=== PATIENT | female | born 1980 | race Caucasian/White ===

== ENCOUNTER 2023-05-21 16:57 | Outpatient (CLI) | payer OTHER, SELFPAY ==
[2023-05-21 18:00] LABS: Anion Gap 5 mmol/L (8-16); Blood Urea Nitrogen 14 mg/dL (7-17); Calcium 9.6 mg/dL (8.4-10.2); Carbon Dioxide 29 mmol/L (22-30); Chloride 101 mmol/L (98-107); Estimated Glomerular Filt Rate > 60; Glucose 94 mg/dL (65-110); Potassium 3.7 mmol/L (3.4-5.0); Sodium 135 mmol/L (137-145)
== END 2023-05-21 16:58 | disposition home or self-care (01) ==
LOC: ANHLAB 16:58
PROVIDERS: PCP Physician Assistant; Visit Provider Anesthesiology
DX: E11.9 Type 2 diabetes mellitus without complications (principal); Z01.818 Encounter for other preprocedural examination
CPT/HCPCS: 36415; 80048

== ENCOUNTER 2023-05-23 12:56 | Outpatient (CLI) | payer OTHER, SELFPAY ==
--- NOTE | 2023-05-23 13:28 | ECG_ITS ---
Measurements Intervals Weld Rate: 86 P: 50 TX: 157 QRS: 33 QRSD: 89 T: 33 QT: 354 QTc: 425 Interpretive Statements SINUS RHYTHM MINIMAL Q WAVES- INFERIOR LEADS BORDERLINE ECG NO PREVIOUS ECG AVAILABLE FOR COMPARISON Electronically Signed On 05-23-2023 13:46:35 [employer] by Fabrizio Arias D.O.
== END 2023-05-23 12:57 | disposition home or self-care (01) ==
LOC: ANHCARD 12:58
PROVIDERS: PCP Physician Assistant; Visit Provider Anesthesiology
DX: R00.0 Tachycardia, unspecified (principal); R94.31 Abnormal electrocardiogram [ECG] [EKG]
CPT/HCPCS: 93005

== ENCOUNTER 2023-05-27 01:09 | Day surgery (SDC) | payer OTHER, SELFPAY ==
[2023-05-19 16:49] VITALS: BMI 51.9
--- NOTE | 2023-05-19 16:57 | PC.NURSE ---
Report to the Outpatient Waiting Room, entrance under the green pavilion located off [facility], at time ____0600___ on date [id number] . Planned Procedure Time: 729__. Time changes happen often and if your time is changed the preop area will call you the afternoon before. - You and your visitor will be asked to self-screen and do not enter if you have any COVID symptoms. - A mask is optional within the hospital at this time. Patients may have clear liquids (water, carbonated beverages, clear teas, apple juice) until 3 hours prior to surgery with a maximum of 20 ounces. - No food from midnight until time of surgery - Take the following medications with a SIP of water the morning of surgery: Metoprolol, Effexor DO NOT STOP ANY OF YOUR OTHER PRESCRIPTION MEDICATIONS PRIOR TO SURGERY ?EXCEPT THE FOLLOWING Medications to discontinue per physician ___(all additional medications to be held morning of except the above.) Please no make-up, nail pakistani, hairspray, perfume, deodorant, or body powder the day of surgery. No jewelry (including any body piercings) or valuables the day of surgery, leave them at home. Please take a shower or bath the night before, or the morning of, surgery with an antibacterial soap. Wear comfortable, loose fitting clothing. - Jewelry must be removed prior to entering the operating room. Rings and piercings that are not removed may be cut off. - The hospital will not accept responsibility for valuables. - Please leave all valuables, including medications, at home the day of surgery. If you are going home after surgery, a licensed test car driver must drive you home. - NO public transportation without another adult if you receive anesthesia. - We recommend that an adult stay with you for 24 hours following discharge. - We also recommend that you do not drive, make important decision, drink alcoholic beverages, or take any drugs that were not prescribed by your health care provider for at least 24 hours after your discharge time. Follow any additional instructions given to you from your surgeon. If you or anyone in your household have experienced Covid symptoms in the past week, please notify your surgeon or the nurse liaison at the phone number below for possible testing. Telephone instructions given to Patient (Radha)____and asked if any additional questions and then verbalized understanding. Patient advised to call surgeon office or pre surgery nurse liaison [phone] if any additional questions.
[2023-05-27] VITALS (10 sets, daily range): BP systolic 116–166; BP diastolic 69–98; PULSE 66–83; RESP 14–20; TEMP 36.6–36.7; O2SAT 92–100
[2023-05-27] MEDS: ACETAMINOPHEN 500 MG TABLET 1000 MG PO (06:08)
[2023-05-27 06:33] LABS: Glucose Point of Care 101 mg/dl (65-105)
[2023-05-27] MEDS: LACTATED RINGERS 1,000 ML 30 ML IV CONT ×2 (06:47→09:03)
[2023-05-27] MEDS: KETOROLAC 15 MG/ML VIAL (*BKC) IV PUSH (06:49)
--- NOTE | 2023-05-27 07:12 | WPDANESEPPF ---
Anes - Initial Pre Proc Eval Procedure: Operation Date: 05/27/23 07:30 Proposed Procedures p Hysteroscopy Dilation and Curettage, Nubia Endometrial Ablation - Miri Prasad MD s Laparoscopy Bilateral Salpingectomy, Left Salpingo Oophorectomy - Miri Prasad MD Date/Time: 05/27/23 07:12 Surgeon: Miri Prasad MD Pre Op Diagnosis: ovary mass, menorrhagia Patient Data Age: 43 Gender: F Height: 1.6 m Weight: 134.6 kg Last Vital Signs Temp 98.1 F 05/27/23 06:16 Pulse 75 05/27/23 06:16 Resp 16 05/27/23 06:16 BP 166/90 H 05/27/23 06:16 Pulse Ox 100 05/27/23 06:16 O2 Del Method Room Air 05/27/23 06:16 Allergies Allergy/AdvReac Type Severity Reaction Status Date / Time No Known Allergies Allergy Verified 05/27/23 06:04 Home Medications Medication Instructions Recorded Confirmed Type leflunomide 20 mg tablet 20 mg PO DAILY #30 tabs 04/25/23 05/19/23 Rx meloxicam 15 mg tablet 15 mg PO DAILY PRN for pain #90 04/25/23 05/19/23 Rx tabs metformin 500 mg tablet 500 mg PO DAILY 04/25/23 05/19/23 History metoprolol succinate 50 mg 50 mg PO DAILY 04/25/23 05/19/23 History tablet,extended release 24 hr omeprazole 40 mg capsule,delayed 40 mg PO DAILY 04/25/23 05/19/23 History release semaglutide 0.25 mg or 0.5 mg (2 1 mg subcut WEEKLY 04/25/23 05/19/23 History mg/3 mL) subcutaneous pen injector (Ozempic) venlafaxine 150 mg 150 mg PO DAILY 05/19/23 05/19/23 History capsule,extended release 24 hr cyclobenzaprine 5 mg tablet 5 mg PO TID PRN muscle spasm #90 05/26/23 Rx tabs Laboratory Tests 05/27/23 06:30 POC Capillary Glucose 101 mg/dl (65-105) Patient hx anesthesia problems: none Family hx anesthesia problems: none Results Review: All pre-operative results and documents have been reviewed as part of the pre-operative evaluation. [facility] Past Medical History Medical History Acute arthritis Anxiety Counseling on health promotion and disease prevention Diabetes Generalized osteoarthritis of multiple sites GERD (gastroesophageal reflux disease) Headache Hyperlipidemia IBS (irritable bowel syndrome) Seronegative rheumatoid arthritis of both hands Surgical History Surgical History H/O breast surgery Family History Family History Other Cerebrovascular accident Depression Diabetes mellitus Heart disease Hypertension Social History Social History Smoking status: Never smoker Second hand tobacco smoke exposure: Yes Alcohol intake: never Substance use: never Substance use type: does not use Do You Feel Safe in your Home?: Yes Lack of Transportation: No Lack of Food: Never True Current Housing: I Have Housing Concerned About Future Housing: No Difficulty Paying Gas/Electric Bills: No Difficulty Paying for Meds: No Currently Unemployed: No Education: Decline to Answer Difficulty w/ Childcare or Family Care: No Living arrangements: alone Spiritual care concerns: No Anes - Eval Final PreProcedure Day of Procedure 05/27/23 07:12 Patient weight: super morbidly obese Heart: regular rate and rhythm Lungs: clear to auscultation Airway: Mallampati scale class III Neurological: alert and oriented Last oral intake: >/= 8 hours ASA classification: IV Emergent: no Anesthetic plan: proceed Anesthesia type and monitoring: general ETT and standard monitoring Results Review: All pre-operative results and documents have been reviewed as part of the pre-operative evaluation. Informed Consent: The patient's anesthetic plan and its attendant risks and benefits were discussed with the patient/family/POA. Questions were solicited and answers provided to the satisfaction of the patient/family/POA.
--- NOTE | 2023-05-27 07:17 | WPDHPUPDATE1 ---
History and Physical Update Update Date/Time: 05/27/23 07:17 History and Physical has been reviewed, including an updated exam of the patient. There are NO changes in the patient's condition. Risks, benefits, and alternatives have been discussed and questions answered. Patient agrees to proceed with procedure.
[2023-05-27 09:08] LABS: Glucose Point of Care 131 mg/dl (65-105)
[2023-05-27] MEDS: fentaNYL CITRATE INJ (*CRX) 100 MCG/2 ML VIAL 25 MCG IV PUSH ×4 (09:25→09:34)
[2023-05-27] MEDS: ONDANSETRON INJ 4 MG/2 ML VIAL IV PUSH (10:11)
[2023-05-27] MEDS: oxyCODONE HCL (*CRX) 5 MG TAB IR PO (10:16)
[2023-05-27] MEDS: SCOPOLAMINE 1 MG PATCH 1 PATCH TRANSDERM (10:42)
[2023-05-27] MEDS: diphenhydrAMINE HCl INJ 50 MG/ML VIAL 12.5 MG IV PUSH (10:46)
--- NOTE | 2023-05-27 11:37 | P.OP_ITS ---
Procedure Note - Detailed Date of Procedure 05/27/23 Pre-op Diagnosis ovary mass, menorrhagia Post-op Diagnosis Same Procedure Performed Laparoscopic bilateral salpingectomy with left oophorectomy and endometrial ablation with hysteroscopy. Surgeon Miri Prasad MD Anesthesia General Indications Menorrhagia, female sterilization Findings 4 cm left ovarian mass with mucinous content, otherwise normal-appearing uterus and fallopian tubes and right ovary Description of Procedure Patient was taken the operating room. She has prepped draped in the dorsal lithotomy position after induction of general anesthesia. A 5 mm abdominal incision was made in left upper quadrant of the abdomen with scalpel. A 5 mm trocars inserted the intra-abdominal cavity under direct visualization of the scope. Pneumoperitoneum was achieved. A 5 mm periumbilical incision was made using a scalpel on the abdominal scan. A 5 mm trocar was inserted the intra- abdominal cavity under visualization of the scope. A 5 mm incision made left lower quadrant of the abdomen. A 5 mm trocar was inserted the intra-abdominal cavity and direct visualization of the scope. The bilateral fallopian tubes were removed. The paratubal tissue in the area of the uterus was grasped with the LigaSure cautery and transected after being cauterized. The paratubal tissue from the ovary to the uterine cornu was cauterized and transected with LigaSure cautery. This was all done in a bilateral fashion. The tube was transected at the area of the uterine cornua and the tubes was removed through the 5 mm trocar site. the left ovary with mass was removed. The infundibulopelvic ligament was cauterized transected with LigaSure cautery. The paraovarian tissue of the mesosalpinx was cauterized transected around the ovary in a stepwise fashion. The ovary was placed in an endobag and taken out the left lower quadrant trocar site it contained mucinous content. The pelvis was irrigated there. SurgiSeal was placed on the area of the left adnexa around the infundibulopelvic The pneumoperitoneum was reduced. The trocars were removed. The skin was closed with subcuticular 4 Monocryl and covered with Dermabond. Our attention was then turned to the endometrial ablation portion of the procedure. A speculum was placed in the vagina. The cervix was grasped with a tenaculum. The cervix was dilated to approximately 8 mm with Messina dilators. The hysteroscope was inserted. And the below findings were noted. All of the intrauterine surfaces were curettaged with a medium-size curette and the specimens were collected. Measurements of the cervix were taken using the uterine sound and the hysteroscope. The intrauterine cavity measurements were entered into the handpiece. The device was inserted into the intrauterine cavity and the array was expanded. The balloon cuff was inflated. When an adequate seal was formed the safety and energy cycles were initiated and completed. The array was collapsed, the balloon was deflated. The insert was withdrawn. The hysteroscope was reinserted and a well desiccated intrauterine cavity was observed. The patient was taken recovery room stable condition. Sponge lap and needle counts were correct x2. She tolerated the procedure well. Pathology Yes Complications No immediate complications Condition Stable Disposition PACU
== END 2023-05-27 11:55 | disposition home or self-care (01) ==
PROVIDERS: PCP Family Medicine Sports Medicine; Visit Provider Obstetrics & Gynecology
PROC: 0U5B8ZZ Destruction of Endometrium, Via Natural or Artificial Opening Endoscopic (ICD-10-PCS; CPT 58563; principal; 2023-05-27 07:30)
PROC: (CPT 49320; 2023-05-27 07:30)
DX: N92.0 Excessive and frequent menstruation with regular cycle (principal); Z30.2 Encounter for sterilization; D27.1 Benign neoplasm of left ovary; N83.12 Corpus luteum cyst of left ovary; N87.9 Dysplasia of cervix uteri, unspecified; E11.9 Type 2 diabetes mellitus without complications; E78.5 Hyperlipidemia, unspecified; K21.9 Gastro-esophageal reflux disease without esophagitis; F41.9 Anxiety disorder, unspecified; M06.042 Rheumatoid arthritis without rheumatoid factor, left hand; M06.041 Rheumatoid arthritis without rheumatoid factor, right hand; Z79.84 Long term (current) use of oral hypoglycemic drugs; Z79.85 Long-term (current) use of injectable non-insulin antidiabetic drugs; E66.01 Morbid (severe) obesity due to excess calories; Z68.43 Body mass index [BMI] 50.0-59.9, adult
CPT/HCPCS: 58563; 58661; 36415; 80048; 82948; 88305; A9270; J0330; J1200; J1885; J2250; J2405; J2704; J3010; J7030; J7120

== ENCOUNTER 2023-06-20 12:30 | Outpatient (CLI) | payer OTHER, SELFPAY ==
[2023-06-20 13:09] LABS: Alanine Aminotransferase 17 U/L (6-35); Alkaline Phosphatase 86 U/L (38-126); Anion Gap 6 mmol/L (4-12); Aspartate Amino Transferase 24 U/L (14-36); Bilirubin,Total 0.3 mg/dL (0.2-1.3); Blood Urea Nitrogen 10 mg/dL (7-17); Calcium 9.5 mg/dL (8.4-10.2); Carbon Dioxide 29 mmol/L (22-30); Chloride 103 mmol/L (98-107); Estimated Glomerular Filt Rate > 60; Glucose 113 mg/dL (65-110); Potassium 3.7 mmol/L (3.4-5.0); Sodium 138 mmol/L (137-145); Uric Acid 3.9 mg/dL (2.5-7.5)
[2023-06-20 13:17] LABS: Complement C3 142 mg/dL (88-165); Rheumatoid Factor < 12.0 IU/ML (<12)
[2023-06-20 17:05] LABS: Vitamin D 25 Hydroxy 29.4 ng/mL
[2023-06-22 11:28] LABS: SS-A <1.0; SS-B <1.0
[2023-06-23 20:43] LABS: Anti Cyclic Citrullinated Pept <16 Units (<20)
[2023-06-26 21:11] LABS: Lupus dRVVT Screen 41 sec (<=45); PTT-LA Screen 37 sec (<=40)
== END 2023-06-20 12:31 | disposition home or self-care (01) ==
LOC: ANHLAB 12:31
PROVIDERS: PCP Family Medicine Sports Medicine; Visit Provider Internal Medicine
DX: K58.9 Irritable bowel syndrome, unspecified (principal); M06.041 Rheumatoid arthritis without rheumatoid factor, right hand; M06.042 Rheumatoid arthritis without rheumatoid factor, left hand; M15.9 Polyosteoarthritis, unspecified; Z71.89 Other specified counseling; Z79.899 Other long term (current) drug therapy
CPT/HCPCS: 36415; 80053; 82306; 84550; 85613; 85730; 86160; 86200; 86235; 86430

== ENCOUNTER 2024-08-19 14:25 | Outpatient (CLI) | payer OTHER, SELFPAY ==
--- OUTSIDE RECORDS SUMMARY | 2024-08-19 14:29 | XMS_ITS | Clinical Summary ---
Author Organization [facility] [address] [place] [id number] Care Team Providers Care Site Manager Name Role Phone Ayla Salazar Unavailable Raji Spears MD Unavailable [phone] Altaf Prasad MD Unavailable [phone] Suresh Child MD Primary Care Provi jonelle Allergies Active Allergy Reactions Criticality Noted Date Comments Inpgurf-Try-Weh Reductase Inhibitors Muscle pain Medium 04/01/2023 Intolerance to atorvastatin and rosuvastatin. Bad cramps Medications ezetimibe (ZETIA) 10 mg tabletIndications: Mixed hyperlipidemia Take 1 tablet (10 mg total) by mouth daily 90 tablet 4 09/30/19 24 Active traZODone (DESYREL) 50 mg tabletIndications: Other insomnia Take 1 tablet (50 mg total) by mouth nightly as needed for sleep 90 tablet 1 02/04/20 24 Active venlafaxine XR (EFFEXOR-XR) 150 mg 24 hr capsuleIndications :PAULINE (generalized anxiety disorder) TAKE 1 CAPSULE BY MOUTH DAILY 90 capsule 3 05/13/19 25 Active topiramate (TOPAMAX) 25 mg tabletIndications: Chronic migraine with aura without status migrainosus, not intractable Take 1 tablet (25 mg total) by mouth nightly for 14 days, THEN 2 tablets (50 mg total) nightly. 74 tablet 1 05/13/19 25 Active ferrous sulfate (FeroSuL) 325 mg (65 mg of elemental iron) tablet TAKE 1 TABLET BY MOUTH DAILY WITH BREAKFAST 90 tablet 1 06/02/19 25 Active dicyclomine (BENTYL) 10 mg capsule Take 10 mg-20 mg up to 4 times daily as needed for abdominal cramping 120 capsule 06/04/19 25 Active pancrelipase (Zenpep) 40,000-126,000- 168,000 unit per capsuleIndications :Pancreatic insufficiency Take 2 capsules with meals and 1 with a snack; up to 8 capsules daily 240 capsule 2 06/24/19 25 Active omeprazole (PriLOSEC) 40 mg capsule Take 1 capsule (40 mg total) by mouth daily 90 capsule 3 06/23/19 [address] (VOLTAREN) 75 mg EC tablet Take 1 tablet (75 mg total) by mouth 2 (two) times a day 60 tablet 06/24/19 25 Active ondansetron (ZOFRAN) 4 mg tablet Take 1 tablet (4 mg total) by mouth every 8 (eight) hours as needed for nausea or vomiting 21 tablet 07/21/19 25 Active tirzepatide (Mounjaro) 12.5 mg/0.5 mL pen injector injection Inject 0.5 mL (12.5 mg total) under the skin every 7 days 2 mL 07/24/19 25 025 Active metoprolol XL (TOPROL-XL) 50 mg extended release tablet Take 1 tablet (50 mg total) by mouth daily 90 tablet 1 08/17/19 25 025 Active metoprolol XL (TOPROL-XL) 50 mg extended release tablet 1 tablet (50 mg total) daily 12/15/19 20 025 Discontinu ed(Reorder ) terbinafine (LamiSIL) 250 mg tabletIndications: Onychomycosis Take 1 tablet (250 mg total) by mouth daily 90 tablet 05/13/19 25 025 Mounjaro 10 mg/0.5 mL pen injector injection ADMINISTER 10 MG UNDER THE SKIN EVERY 7 DAYS 2 mL 1 07/01/19 25 025 Discontinu ed(Alterna te therapy) tirzepatide (Mounjaro) 12.5 mg/0.5 mL pen injector injection Inject 0.5 mL (12.5 mg total) under the skin every 7 days 025 Discontinu ed(Reorder ) amoxicillin-clavul anate (AUGMENTIN) 875-125 mg per tablet Take 1 tablet (875 mg of amoxicillin total) by mouth 2 (two) times a day for 7 days 14 tablet 08/03/19 25 025 Active Problems Problem Noted Date Diagnosed Date Morbid obesity with BMI of 45.0-49.9, adult 04/25 Iron deficiency 05/13/2024 Chronic migraine with aura w ithout status migrainosus, not intractable 05/13/2024 Onychomycosis 05/13/2024 Morbid obesity with BMI of 50.0-59.9, adult 01/22 Microcytic anemia 02/04/2024 Other insomnia 02/04/2024 Type 2 diabetes mellitus with hyperlipidemia 11/2023 Assessment & Plan (09/30/2023 9:19 AM CDT): Chronic. Diabetes controlled. Continue metformin and Mounjaro. Cholesterol needs improvement. Patient is statin intolerant so will do a trial of ezetimibe. If she does not tolerate she will let me know. Could always consider Nexletol or PCSK9 inhibitor PSC [place] Assessment & Plan (04/01/2023 10:47 AM UTILITY OPERATOR): Chronic. Very well controlled on current regimen. However, patient would benefit from added weight loss benefit. Given she notes better weight loss with mind mariana then Ozempic we will see if she can tolerate a slightly higher dose of Ozempic since she is still only on starter dose. If she does not tolerate then we will go back to the 0.5 mg injection. Diabetic education was performed. Stressed importance of yearly dilated eye exam to screen for retinopathy. Patient is encouraged to schedule and to get a copy of the report sent to us once completed. Foot exam done in office today. Patient had labs in August so we will defer full panel diabetic labs until she comes back for physical in September Diabetes Education Reviewed diabetic disease process, standards of care, and possible disease complications I have discussed the following steps for improving diabetic care: diabetic diet with healthy meals that are low salt, low fat, high fiber daily 30 minutes of exercise (45-60 minutes if trying to lose weight) Encouraged to loose weight if overweight/obese, or maintain a healthy body weight if BMI normal home glucose monitoring and goals (fast 70-130 and 2 hr PP <180) HgA1C goal <7% If checking home bp, goal less than 140/90 on average, even better if <130/85 Check feet daily for sores, dryness, cracking; use daily moisturizer if needed and invest in good shoes See eye doctor at least once per year and have report sent to us Statin intolerance 04/01/2023 Assessment & Plan (09/30/2023 9:20 AM CDT): Patient is statin intolerant. Agrees to trial of Zetia for cholesterol. Assessment & Plan (04/01/2023 10:48 AM UTILITY OPERATOR): Patient reports prior intolerance to both atorvastatin and rosuvastatin. No history of intolerance to Zetia but is currently not taking. We will have her continue working on diet, exercise and weight loss. We will see what her cholesterol shows at her physical in 6 months PAULINE (generalized anxiety disorder) 04/01/2023 Assessment & Plan (09/30/2023 9:20 AM CDT): Anxiety stable. Continue Effexor Assessment & Plan (04/01/2023 10:48 AM UTILITY OPERATOR): Chronic. Well controlled on current medication. We will continue for now. Brief supportive counseling provided. Monitor Diabetes mellitus, type 2 05/22/2022 Assessment & Plan (09/30/2023 9:20 AM CDT): Chronic. Diabetes is controlled. Obesity needs improvement encouraged healthy diet, exercise, weight loss. Continue current prescription medication Diverticulosis of colon 07/26/2020 Gastroesophageal reflux disease 07/26/2020 Assessment & Plan (04/01/2023 10:42 AM UTILITY OPERATOR): Chronic. Relatively controlled with omeprazole. Continue. Liver fibrosis 07/26/2020 Overview (04/01/2023): Liver biopsy done 08/14/20 at [facility] -- Steatohepatitis, NAFLD score 6 -- Steatosis, diffuse -- Mild portal inflammation and rare foci of lobular infiltration -- Prominent balloon degeneration -- Fibrosis stage, mild, stage 1 Assessment & Plan (09/30/2023 9:18 AM CDT): Encouraged healthy diet, exercise, weight loss. Liver enzymes are normal. We will need to monitor with starting Zetia Assessment & Plan (04/01/2023 10:43 AM UTILITY OPERATOR): Mild fibrosis on liver biopsy in 2020. Candor likely due to nonalcoholic steatohepatitis. Counseled on healthy diet, exercise, weight loss. We will see if increased dose of Ozempic can provide added weight loss benefits in addition to helping with her diabetes control. Patient needs to transition GI doctors due to change in insurance. She previously saw Dr. Livingston at [facility]. Given Dr. Livingston is now with DELVIN/Michaela at [facility] we will go ahead and refer back to her. Pancreatic insufficiency 07/26/2020 Assessment & Plan (09/30/2023 9:19 AM CDT): Chronic. Symptoms controlled with pancrelipase. Continue Assessment & Plan (04/01/2023 10:46 AM UTILITY OPERATOR): Previously diagnose. Symptoms are relatively controlled as long as she takes the pancreatic enzymes prior to meals. 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 Livingston. Last fiber scan was in 2020 that suggested S3 steatosis and F4 scarring. Liver biopsy done 07/2020 consistent with dof-tszioyy-odkahrynnw steatohepatitis with signs of early fibrosis but not cirrhosis. Was recommended diet, exercises, weight loss Assessment & Plan (09/30/2023 9:18 AM CDT): Chronic. Liver enzymes have been normal. Encouraged healthy diet, exercise, weight loss. Monitor liver enzymes. Keep alcohol in moderation Assessment & Plan (04/01/2023 10:43 AM UTILITY OPERATOR): Diagnosed previously. Counseled on healthy diet, exercise, weight loss. We will see if the increased dose of Ozempic and provide added weight loss benefit as this should help the MAST. Bipolar disorder 02/23/2020 Diverticulosis 02/23/2020 Obstructive sleep apnea (adult) (pediatric) 04/2015 Assessment & Plan (09/30/2023 9:19 AM CDT): Chronic. Needs improvement. Stressed compliance with CPAP. Encouraged healthy diet, exercise, weight loss Assessment & Plan (04/01/2023 10:46 AM UTILITY OPERATOR): Chronic. Diagnosed about 2 years ago at [facility]. Patient reports her last PCP was 1 who ordered the test. We will try to obtain the port with the PCP records. Patient is somewhat noncompliant with CPAP. Stress CPAP compliance. We did review risks associated with untreated sleep apnea. Patient is encouraged to also work on weight loss Hyperlipidemia 04/19/2015 Overview (04/25/2023): Total cholesterol 232, triglycerides 153, HDL 45.3, LDL 158.9 on 06/07/2022 Assessment & Plan (09/30/2023 9:20 AM CDT): Chronic. Needs improvement. Agrees to trial of ezetimibe. Hypertension 04/19/2015 Palpitations 04/19/2015 Resolved Problems Problem Noted Date Diagnosed Date Resolved Date Ankylosing spondylitis 02/28/202102/16 Rheumatoid arthritis 07/26/2020 024 Assessment & Plan (09/30/2023 9:20 AM CDT): Chronic. Controlled. Continue Arava. Keep upcoming appointment with new farm crew member given her farm crew member left the system Assessment & Plan (04/01/2023 10:44 AM UTILITY OPERATOR): Chronic. Currently supposed to be on sulfasalazine but not taking consistently. Has been following with Rheumatology, Dr. Spears. He has her on p.r.n. and tramadol and Flexeril as well. Patient has an appointment to establish with new farm crew member next month. We will defer management of autoimmune diseases and tramadol to the farm crew member Scleroderma 07/26/2020 02/17/2024 Assessment & Plan (09/30/2023 9:18 AM CDT): Chronic. Stable. Continue medication and care per Rheumatology. She will be transitioning to farm crew member within our system as the [facility] farm crew member is no longer with the practice Assessment & Plan (04/01/2023 10:45 AM UTILITY OPERATOR): Patient reports was a very mild case of scleroderma. She does not have significant tightening of the skin around her joints. She does not report any history of CREST syndrome to her knowledge. Defer medication and care to rheumatology Obesity 07/26/2020 02/04/2024 Assessment & Plan (09/30/2023 9:19 AM CDT): Chronic. Suboptimally controlled. He did improvement. Encouraged healthy diet, exercise, weight loss Assessment & Plan (04/01/2023 10:45 AM UTILITY OPERATOR): Chronic. Suboptimally controlled. Has been working on diet, exercise and weight loss. Was seen better weight loss benefit with Mounjaro but had to be switch to Ozempic due to insurance change. We will see if she can tolerate a slightly higher dose of Ozempic for added benefit for the obesity as well as the diabetes. We did drug and alcohol counselor side effects and use. If develops significant intolerance she will need to let us know we will go back down on the dose Encounters Date Type Department Care Team Description 07/20/2024 Results Follow-Up [facility] Gastroenterology at [place] [address] [place] [address] Silvia Cannon PA RUCarl Ultrasound 07/17/2024 9:21 AM CDT - 07/17/2024 11:59 PM CDT Hospital Encounter [facility] [address] [place] [address] Liver fibrosis Discharge Disposition: Discharge to home or self care 06/23/2024 3:15 PM CDT Office Visit [facility] [address] [place] [address] [address] [place] [address] Stanley Snider PA Primary osteoarthritis of right knee (Primary Dx); Primary osteoarthritis of left knee; Morbid obesity with BMI of 45.0-49.9, adult ([facility]) 06/23/2024 7:46 AM CDT - 06/23/2024 11:59 PM CDT Hospital Encounter [facility] [address] [place] [address] [address] [place] [address] Discharge Disposition: Discharge to home or self care 06/23/2024 7:46 AM CDT - 06/23/2024 11:59 PM CDT Hospital Encounter [facility] [address] [place] [address] Discharge Disposition: Discharge to home or self care 06/15/2024 Results Follow-Up [facility] Gastroenterology at [address] [place] [address] Silvia Cannon PA Pancreatic elastase, stool 06/08/2024 8:00 PM CDT - 06/08/2024 11:59 PM CDT Hospital Encounter [address] Pancreatic insufficiency Discharge Disposition: Discharge to home or self care 06/03/2024 2:30 PM CDT Lab [address] Heartburn; Liver fibrosis 06/03/2024 1:45 PM CDT Office Visit [facility] Gastroenterology at [address] [place] [address] Silvia Cannon PA Abdominal cramping (Primary Dx); Liver fibrosis; Pancreatic insufficiency; Fecal urgency; Abdominal bloating; Excessive gas; Heartburn 05/24/2024 Results Follow-Up [facility] Primary Care at [address] [place] [phone] Suresh Child MD Screening Mammogram Bilateral W Scooter 05/22/2024 1:39 PM UTILITY OPERATOR - 05/22/2024 11:59 PM UTILITY OPERATOR Hospital Encounter [facility] [address] [place] [id number] Screening mammogram, encounter for Discharge Disposition: Discharge to home or self care from Last 3 Months Immunizations Immunization Administration Dates Next Due Influenza, Quadrivalent, Split, Intramuscular Influenza, Quadrivalent, Spl it, Preservative Free, Intramuscular 12/23/2022 Influenza, Trivalent, Adjuvanted, Intramuscular 01/17/2024 Influenza, Unspecified 01/17/2024,12/23/2022 Pneumococcal Conjugate Pcv20 09/30/2023 Pneumococcal Polysaccharide PPV23 11/20/2020 Sars-CoV-2, Unspecified 11/27/2023 Tdap 03/24/2017 Surgical History Surgery Date Site/Laterality Comments COLONOSCOPY 09/2012, 01/2018 US GUIDED BIOPSY LIVER 08/14/2020 N/A CYST REMOVAL 03/24/1995 - 03/23/1996 Left breast ENDOMETRIAL ABLATION OOPHORECTOMY 05/23/2023 - 06/22/2023 Left Medical History Medical History Date Comments IBS (irritable bowel syndrome) Anemia 05/07/2019 Anxiety 09/10/2016 Arthritis 09/2017 Diverticulitis of colon 12/2019 GERD (gastroesophageal reflux disease) 5 Hyperlipidemia 01/02/2015 Hypertension 03/23/2015 Joint pain Kidney stone 12/2019 Low back pain Morbid obesity (HCC) Sleep apnea 03/23/2015 Vitamin D deficiency Liver fibrosis 07/26/2020 Liver biopsy don e 08/14/20 at [facility] -- Steatohepatitis, NAFLD score 6 -- Steatosis, diffuse -- Mild portal inflammation and rare foci of lobular infiltration -- Prominent balloon degeneration -- Fibrosis stage, mild, stage 1 Diabetes mellitus (HCC) Immune to varicella Titers 08/13 consistent with immunity Family History Medical History Relation Name Comments Hyperlipidemia Father Yogesh Obesity Father Yogesh Sleep apnea Father Yogesh Alcohol abuse Father's Brother 1 Joseph Heart disease Father's Brother 2 Feliz Alcohol abuse Father's Sister Sujata Cervical cancer Father's Sister Sujata Alcohol abuse Maternal Grandfather Hayden Diabetes Maternal Grandmother Marilyn Asthma Mother Rose Mary COPD Mother Rose Mary Diabetes Mother Rose Mary Hyperlipidemia Mother Rose Mary Hypertension Mother Rose Mary Obesity Mother Rose Mary Sleep apnea Mother Rose Mary Diabetes Mother's Sister 1 Eula Diabetes Mother's Sister 2 Alexandra Obesity Mother's Sister 2 Alexandra Arthritis Paternal Grandmother Cleveland Diabetes Paternal Grandmother Cleveland Heart disease Paternal Grandmother Cleveland Stroke Paternal Grandmother Cleveland Relation Name Status Comments Father Yogesh Father's Brother 1 Joseph Father's Brother 2 Feliz Father's Sister Sujata Maternal Grandfather Hayden Maternal Grandmother Marilyn Mother Rose Mary Mother's Sister 1 Eula Mother's Sister 2 Alexandra Paternal Grandmother Cleveland Social History Tobacco Use Types Packs/Day Years Used Date Smoking Tobacco: Never Smokeless Tobacco: Never Alcohol Use Standard Drinks/Week Comments Never 0 (1 standard drink = 0.6 oz pur e alcohol) AUDIT-C Answer Date Recorded Q1: How often do you have a drink containing alcohol? Never 06/03/2024 Q2: How many drinks containi ng alcohol do you have on a typical day when you are drinking? Patient does not drink Q3: How often do you have si x or more drinks on one occasion? Never 06/03/2024 PHQ-2 Answer Date Recorded PHQ-2 Total Score (If total score is 3 or more points, staff should administer the PHQ-9) 0 02/04/2024 Personal Safety Answer Date Recorded Have you ever been in or are you currently in a harmful physical or emotional relationship or is someone making you feel afraid or unsafe? Denies 04/15/2024 Comments No Sex and Gender Information Value Date Recorded Sex Assigned at Not on file Legal Sex Female 1:00 AM UTILITY OPERATOR Gender Identity Female 04/19/2020 10:14 AM UTILITY OPERATOR Sexual Orientation Straight 04/19/2020 10 :14 AM UTILITY OPERATOR Obstetrics History Para Term AB IAB SAB Ectopic Multiple Livin g Live Births 0 0 0 0 0 0 0 0 0 0 0 Last Filed Vital Signs Vital Sign Reading Time Taken Comments Blood Pressure 112/75 06/03/2024 1:40 PM CDT Pulse 80 06/03/2024 1:40 PM CDT Temperature 36.6 C (97.8 F) 05/13/2024 2:52 PM UTILITY OPERATOR Respiratory Rate 18 05/13/2024 7:24 AM UTILITY OPERATOR Oxygen Saturation 98% 06/03/2024 1:40 PM CDT Inhaled Oxygen Concentration - - Weight 125.1 kg (275 lb 11.2 oz) 06/03/2024 1:40 PM CDT Height 162.6 cm (5' 4) 06/03/2024 1:40 PM CDT Body Mass Index 47.32 06/03/2024 1:40 PM CDT Plan of Treatment Health Maintenance Due Date Last Done Comments Hepatitis B Screening 1998 Foot Exam 04/01/2024 04/01/2023, 04/01/2023 Dilated Eye Exam 06/13/2024 06/14/2023 Lipid Panel 09/22/2024 09/23/2023 Regular Well Visit/Exam 18-64 09/29/2024 09/30/2023 Hemoglobin A1C 11/07/2024 05/10/2024, 01/22, 09/23/2023, Additional history exists Depression Screening 02/03/2025 02/04/2024, 09/30/2023, 04/01/2023 Albumin Creatinine Ratio, Urine 02/04/2025 02/05/2024, 06/07/2022 Cervical Cancer Screening 05/15/2025 05/15/2022 Breast Cancer Screening-Mammogram 05/22/2025 05/22/2024, 04/26/2023 eGFR 06/03/2025 06/03/2024, 04/24, 04/15/2024, Additional history exists DTaP/Tdap/Td Vaccine (2 - Td or Tdap) 03/24/2027 03/24/2017 Colon Cancer Screening-Colonoscopy 04/09/2027 04/09/2022, 10/09/2012 Pneumococcal vaccine <65 Completed 09/30/2023, 10/24 Covid-19 Vaccine Completed 11/27/2023, 07/2023, 05/08/2022, Additional history exists Influenza Vaccine Completed 01/17/2024, , 12/23/2022, Additional history exists Hepatitis C Screening Completed 02/17/2024, 024 HPV Vaccines Aged Out No longer eligi ble based on patient's age to complete this topic Procedures Procedure Name Priority Date/Time Associated Diagnosis Comments US RUQ Schedule Routine, Read Routine (OP Routine) 07/17/2024 9:53 AM CDT Liver fibrosis UT ARTHROCENTESIS ASPIR&/INJ MAJOR JT/BURSA W/O US Routine 06/23/2024 3:15 PM CDT Primary osteoarthritis of left knee XR KNEE BILATERAL 4 OR MORE VIEWS Schedule Routine, Read Routine (OP Routine) 06/23/2024 2:45 PM CDT Primary osteoarthritis of right knee XR PELVIS 1 OR 2 VIEWS Schedule Routine, Read Routine (OP Routine) 06/23/2024 2:45 PM CDT Primary osteoarthritis of right knee PANCREATIC ELASTASE, STOOL Routine 06/08/2024 8:00 PM CDT Pancreatic insufficiency EGFR Routine 06/03/2024 2:24 PM CDT Liver fibrosis DIFFERENTIAL AUTO Routine 06/03/2024 2:2 4 PM CDT Liver fibrosis FIBRO TEST-ACTI TEST Routine 06/03/2024 2:24 PM CDT Liver fibrosis CBC WITH AUTO DIFFERENTIAL Routine 06/03/2024 2:24 PM CDT Liver fibrosis COMPREHENSIVE METABOLIC PANEL Routine 06/03/2024 2:24 PM CDT Liver fibrosis [id number], TUMOR MARKER Routine 06/03/2024 2:24 PM CDT Liver fibrosis MAGNESIUM Routine 06/03/2024 2:24 PM CDT Heartburn VITAMIN B12 Routine 06/03/2024 2:24 PM CDT Heartburn VITAMIN D 25 HYDROXY Routine 06/03/2024 2:24 PM CDT Heartburn SCREENING MAMMOGRAM BILATERAL W SCOOTER Schedule Routine, Read Routine (OP Routine) 05/22/2024 1:55 PM UTILITY OPERATOR Screening mammogram, encounter for HEMOGLOBIN A1C Routine 05/10/2024 7:21 AM UTILITY OPERATOR Type 2 diabetes mellitus with hyperlipidemia (HCC) HEPATITIS C ANTIBODY Routine 02/17/2024 2:19 PM UTILITY OPERATOR Pain in other joint Positive NOLA (antinuclear antibody) Elevated rheumatoid factor Chronic pain of both knees ALBUMIN CREATININE RATIO, URINE Routine 02/05/2024 12:17 PM UTILITY OPERATOR Type 2 diabetes mellitus with hyperglycemia, without long-term current use of insulin (HCC) LIPID PANEL Routine 09/23/2023 7:26 AM CDT Type 2 diabetes mellitus without complication, without long-term current use of insulin (HCC) Laboratory examination ordered as part of a complete physical examination Liver fibrosis Class 3 severe obesity due to excess calories with serious comorbidity and body mass index (BMI) of 45.0 to 49.9 in adult (HCC) DIABETES EYE EXAM Routine 06/14/2023 PAP SMEAR WITH HPV Routine 05/15/2022 COLONOSCOPY Routine 04/09/2022 3:50 PM UTILITY OPERATOR from Last 3 Months or Most Recently Relevant to Health Maintenance Results * RUQ Ultrasound (07/17/2024 9:53 AM CDT) Anatomical Region Laterality Modality Abdomen N/A Ultrasound 07/19/2024 7:28 AM CDT Narrative 07/19/2024 7:30 AM CDT EXAM DESCRIPTION: US RUQ REASON FOR STUDY: assess liver TECHNIQUE: Ultrasound of the right upper quadrant of the abdomen was performed with grayscale and color doppler. COMPARISON: None FINDINGS: PANCREAS: Visualized portions of the pancreas are within normal limits. Portions of the pancreatic body and tail are obscured due to bowel gas. LIVER: Normal in size. Borderline increased echogenicity. Normal echotexture. No definite liver lesion is seen. GALLBLADDER: Normal in size and wall thickness. Non mobile stone is noted as per the performing supervisor mapping. No pericholecystic fluid. Negative sonographic Sidhu sign as per performing supervisor mapping. BILIARY: Normal common bile duct measures 3 mm in diameter. RIGHT KIDNEY: Normal in size. Measures 10.3 cm. No hydronephrosis IMPRESSION: 1. Borderline hepatic steatosis. 2. Cholelithiasis without sonographic evidence of acute cholecystitis. THIS IS AN ELECTRONICALLY VERIFIED FINAL REPORT 07/19/2024 7:30 AM - Electronically signed by Chito Washburn M.D. AG: DO Report ID: [id number] Reading Location: [id number] Procedure Note Chito Washburn MD - 07/19/2024 EXAM DESCRIPTION: US RUQ REASON FOR STUDY: assess liver TECHNIQUE: Ultrasound of the right upper quadrant of the abdomen wasperformed with grayscale and color doppler. COMPARISON: None FINDINGS: PANCREAS: Visualized portions of the pancreas are within normal limits. Portions of the pancreatic body and tail are obscured due to bowel gas. LIVER: Normal in size. Borderline increased echogenicity. Normal echotexture. No definite liver lesion is seen. GALLBLADDER: Normal in size and wall thickness. Non mobile stone isnoted as per the performing supervisor mapping. No pericholecystic fluid. Negative sonographic Sidhu sign as per performing supervisor mapping. BILIARY: Normal common bile duct measures 3 mm in diameter. RIGHT KIDNEY: Normal in size. Measures 10.3 cm. No hydronephrosis IMPRESSION: 1. Borderline hepatic steatosis. 2. Cholelithiasis without sonographic evidence of acute cholecystitis. THIS IS AN ELECTRONICALLY VERIFIED FINAL REPORT 07/19/2024 7:30 AM - Electronically signed by Chito Washburn M.D. AG: DO Report ID: [id number] Reading Location: [id number] us Silvia THOMAS IMG US PROCEDURES Final Result * UT ARTHROCENTESIS ASPIR&/INJ MAJOR JT/BURSA W/O US (06/23/2024 3:15 PM CDT) Narrative Stanley Snider PA - 06/23/2024 3:15 PM CDT Stanley Snider PA 06/23/2024 4:25 PM Large Joint (Hip, Knee, Shoulder) Injection: L knee Performed by: Stanley Snider PA Authorized by: Stanley Snider PA Large Joint Injection/Aspiration: Consent Given by: Patient Timeout: prior to procedure the correct patient, procedure, and site was verified Verbal consent obtained: Yes Supporting Documentation: Indications: Pain Procedure Details: Location: Knee Site: L knee Prep: patient was prepped using a clean technique Needle Size: 22 G Approach: Anterolateral Ultrasound guided: No Fluroscopic guidance: No Medications: 3 mL lidocaine 20 mg/mL (2 %); 80 mg methylPREDNISolone acetate 80 mg/mL Patient tolerance: Patient tolerated the procedure well with no immediate complications Stnaley THOMAS IN CLINIC/BEDSIDE DENNIS BLANTON Final Result * XR Knee Bilateral 4 or More Views (06/23/2024 2:45 PM CDT) Anatomical Region Laterality Modality Lower Extremities, Knee Digital Radiography Narrative 06/23/2024 4:08 PM CDT Views of the bilateral knees reviewed interpreted today. No evidence of fracture or dislocation. Mild degenerative changes noted to the right knee moderate degenerative changes noted to the left knee as evidenced by joint space narrowing subchondral sclerosis and osteophyte formation. Stanley THOMAS IMG XR PROCEDURES Alma l Result * XR Pelvis 1 or 2 Views (06/23/2024 2:45 PM CDT) Anatomical Region Laterality Modality Body, Pelvis N/A Digital Radiogra phy Narrative 06/23/2024 4:08 PM CDT X-ray of the pelvis reviewed and interpreted. There is no evidence of fracture, subluxation, or bony abnormality. Bilateral hip joint spaces well maintained. Stanley THOMAS IMG XR PROCEDURES Alma l Result * (ABNORMAL) Pancreatic elastase, stool (06/08/2024 8:00 PM CDT) Pancreatic elastase, stool <40(L) >200 (Normal) mcg/g [facility] Comment: Interpretation: Abnormal (<100 mcg/g); Consistent with pancreatic insufficiency Test Performed by: [facility] [address] [id number] Bed Bug Exterminator: Brandi Green Ph.D.; CLIA# [id number] Stool 06/08/2024 8:00 PM CDT 06/09/2024 10:40 AM CDT Silvia THOMAS LAB BODY FLUIDS AND STOO LS ORDERABLES Final Result ABRAHAN VELA ([place]) 1 [facility] Department of [employer] [place], [place] [id number] [facility] * (ABNORMAL) Fibro Test-Acti Test (06/03/2024 2:24 PM CDT) FibroTest Score 0.05 [facility] FibroTest Stage F0 LIZZIE VELA (ERIC) FibroTest Interpretation no fibrosis [facility] (ERIC) Comment: FibroTest estimates liver fibrosis FibroTest Score Stage Interpretation 0.00-0.21 F0 no fibrosis 0.21-0.27 F0-F1 no fibrosis 0.27-0.31 F1 minimal fibrosis 0.31-0.48 F1-F2 minimal fibrosis 0.48-0.58 F2 moderate fibrosis 0.58-0.72 F3 advanced fibrosis 0.72-0.74 F3-F4 advanced fibrosis 0.74-1.00 F4 severe fibrosis (Cirrhosis) ActiTest Score 0.05 [facility] (ERIC) ActiTest Grade A0 [facility] (ERIC) ActiTest Interpretation no activity [facility] (ERIC) Comment: ActiTest estimates necroinflammatory activity ActiTest Score Grade Interpretation 0.00-0.17 A0 no activity 0.17-0.29 A0-A1 no activity 0.29-0.36 A1 minimal activity 0.36-0.52 A1-A2 minimal activity 0.52-0.60 A2 significant activity 0.60-0.62 A2-A3 significant activity 0.62-1.00 A3 severe activity FibroTest-ActiTest Comment See Comment [facility] (ERIC) Comment: The reliability of results is dependent on compliance with the preanalytical and analytical conditions recommended by [employer]. The tests have to be deferred for: acute hemolysis, acute hepatitis, acute inflammation, extra hepatic cholestasis. The advice of a specialist should be sought for interpretation in chronic hemolysis and Gilbert's syndrome. The test interpretation is not validated in liver transplant patients. Isolated extreme values of one of the components should lead to caution in interpreting the results. In case of discordance between a biopsy result and a test, it is recommended to seek advice of a specialist. The causes of these discordances could be due to a flaw of the test or to a flaw in the biopsy: i.e. a liver biopsy has a 33% variability rate for one fibrosis stage. FibroTest is interpretable for chronic hepatitis B and C, alcoholic and non alcoholic steatosis. ActiTest is interpretable for chronic hepatitis B and C. ADDITIONAL INFORMATION This test was developed and its performance characteristics determined by [facility] in a manner consistent with CLIA requirements. This test has not been cleared or approved by the U.S. Food and Drug Administration. [employer] Serial Number [id number] [facility] (ERIC) APOLIPOPROTEIN A1 113(L) >=140 mg/dL [facility] (ERIC) Hsikx-1-Cdvupzalirckn, Ser 161 100 - 280 mg/dL [facility] (ERIC) Haptoglobin, S 242(H) 30 - 200 mg/dL [facility] (ERIC) Alanine Aminotransferase (ALT), S 19 7 - 45 Units/L [facility] (ERIC) Gamma Glutamyltransferase (GGT), S 17 5 - 36 Units/L [facility] (ERIC) Bilirubin, Total, S 0.2 0.0 - 1.2 mg/dL [facility] (ERIC) Comment: Test Performed by: [facility] [address] [place] [address] Bed Bug Exterminator: Brandi Green Ph.D.; CLIA# [id number] Test Performed by: [facility] [address] [place] [address] Bed Bug Exterminator: Brandi Green Ph.D.; CLIA# [id number] Blood 06/03/2024 2:24 PM CDT 06/03/2024 3:53 PM CDT Silvia THOMAS LAB BLOOD ORDERABLES Fin al Result ABRAHAN VELA (ERIC) 1 [facility] Department [place] [address] [facility] * eGFR (06/03/2024 2:24 PM CDT) eGFR 74 >=60 mL/min/1. 73 m2 Comment: Interpretive Data Reference Interval Normal >/= 90 mL/min/1.73m2 Mildly decreased* 60 - 89 mL/min/1.73m2 Mildly to moderately decreased 45 - 59 mL/min/1.73m2 Moderately to severely decreased 30 - 44 mL/min/1.73m2 Severely decreased 15 - 29 mL/min/1.73m2 Kidney Failure < 15 mL/min/1.73m2 *Relative to young adult level Estimated glomerular filtration rate is determined by the 2020 CKD-EPI equation recommended by the National Kidney Foundation (A Unifying Approach to GFR Estimation: Recommendations of the NKF-ASK Task Force on Reassessing the Inclusion of Race in Diagnosing Kidney Disease, JASN 2020). The CKD-EPI equation should not be used for patients with unstable renal function and has not been validated in children and those over 70. Current interpretive data was last reviewed 2021. Blood 06/03/2024 2:24 PM CDT 06/03/2024 3:53 PM CDT us Silvia THOMAS LAB BLOOD ORDERABLES Fin al Result [facility]RAHAN [facility]ELA ([place]) 1 [facility] Department [place] [address] * Differential, auto (06/03/2024 2:24 PM CDT) Neutrophil abs 5.1 1.5 - 6.5 K/cumm Imm gran abs 0.0 0.0 - 0.1 K/cumm [facility] ([place]) Lymphocyte abs 1.7 0.8 - 3.3 K/cumm [facility] ([place]) Monocyte abs 0.5 0.2 - 0.8 K/cumm [facility] ([place]) Eosinophil abs 0.1 0.0 - 0.5 K/cumm [facility] ([place]) Basophil abs 0.1 0.0 - 0.1 K/cumm [facility] ([place]) Neutrophil pct 68.5 % [facility] ([place]) Comment: Interpretive Data Percent cell count reference ranges are not reported, since discordance with absolute values may lead to misinterpretation of CBC data. Current Interpretive Data was last revised on 2017. Imm gran pct 0.3 % [facility] ([place]) Comment: Interpretive Data Percent cell count reference ranges are not reported, since discordance with absolute values may lead to misinterpretation of CBC data. Current Interpretive Data was last revised on 2017. Lymphocyte pct 22.7 % [facility] ([place]) Comment: Interpretive Data Percent cell count reference ranges are not reported, since discordance with absolute values may lead to misinterpretation of CBC data. Current Interpretive Data was last revised on 2017. Monocyte pct 6.8 % [facility] ([place]) Comment: Interpretive Data Percent cell count reference ranges are not reported, since discordance with absolute values may lead to misinterpretation of CBC data. Current Interpretive Data was last revised on 2017. Eosinophil pct 0.9 % [facility] ([place]) Comment: Interpretive Data Percent cell count reference ranges are not reported, since discordance with absolute values may lead to misinterpretation of CBC data. Current Interpretive Data was last revised on 2017. Basophil pct 0.8 % [facility] (ERIC) Comment: Interpretive Data Percent cell count reference ranges are not reported, since discordance with absolute values may lead to misinterpretation of CBC data. Current Interpretive Data was last revised on 2017. Blood 06/03/2024 2:24 PM CDT 06/03/2024 3:53 PM CDT Silvia THOMAS LAB BLOOD ORDERABLES Fin al Result [facility] (ERIC) 1 [facility] Department [place] [address] * (ABNORMAL) CBC with auto differential (06/03/2024 2:24 PM CDT) WBC 7.4 3.8 - 9.9 K/cumm Hgb 13.1 11.9 - 15.5 g/dL [facility] ([facility]) Hct 39.9 35.6 - 45.5 % [facility] ([facility]) Plt 220 150 - 400 K/cumm [facility] ([facility]) MPV 12.4(H) 9.1 - 12.3 fL [facility] ([facility]) RBC 4.66 3.90 - 5.20 M/cumm [facility] ([facility]) MCV 85.6 81.3 - 96.4 fL [facility] ([facility]) MCH 28.1 27.1 - 33.3 pg [facility] ([facility]) MCHC 32.8 32.3 - 35.7 g/dL [facility] ([facility]) RDW CV 14.3 11.1 - 14.9 % [facility] ([facility]) RDW SD 44.4 35.7 - 48.1 fL [facility] ([facility]) NRBC abs 0.00 0.00 - 0.01 K/cumm [facility] ([facility]) Blood 06/03/2024 2:24 PM CDT 06/03/2024 3:53 PM CDT Silvia THOMAS LAB BLOOD ORDERABLES Fin al Result Performing Organization Address City/[facility] Co de Phone Number ABRAHAN VELA ([place]) 1 [facility] [place] [address] * [id number], Tumor Marker (06/03/2024 2:24 PM CDT) alpha Fetoprotein <2.0 <=8.3 ng/mL Comment: Interpretive Data The Taylor AFP assay procedure was used. Results from different manufacturers or methods may not be comparable. Serial testing should be performed using the same method. 0-1 month. AFP concentrations may reach or exceed 100,000 ng/mL after depending on gestational age and weight. 1-3 months 50 1000 ng/ml 3-6 months 10 500 ng/ml 6-12 months 3.0 100 ng/ml >1 year 0.0 8.3 ng/ml References Nunu Y. et al. J. Ped Surg 1978;13:155-156 Gilbert Li et al. Clin Chem Lab Med 2018;57:783-797 Remigio Gallego et al. Clin Chem 2014;4400-9897. Current interpretive data was last revised 2021. Testing performed by: [facility], [address] [place] [address] Blood 06/03/2024 2:24 PM CDT 06/03/2024 8:01 PM CDT Silvia THOMAS LAB BLOOD ORDERABLES Fin al Result ABRAHAN VELA (ERIC) 1 [facility] [address] * (ABNORMAL) Vitamin D 25 hydroxy (06/03/2024 2:24 PM CDT) Vitamin D 25-OH 15(L) 30 - 80 ng/mL Blood 06/03/2024 2:24 PM CDT 06/03/2024 3:53 PM CDT Silvia THOMAS LAB BLOOD ORDERABLES Fin al Result ABRAHAN VELA ([place]) [address] [place] [address] * Magnesium (06/03/2024 2:24 PM CDT) Pathologist [facility] Magnesium 2.3 1.4 - 2.5 mg/dL Blood 06/03/2024 2:24 PM CDT 06/03/2024 3:53 PM CDT Silvia THOMAS LAB BLOOD ORDERABLES Fin al Result Performing Organization Address City/[facility] Co de Phone Number ABRAHAN VELA ([place]) [address] [place] [address] * Vitamin B12 (06/03/2024 2:24 PM CDT) [facility] Vitamin B12 275 230 - 1,250 pg/mL Blood 06/03/2024 2:24 PM CDT 06/03/2024 3:53 PM CDT Silvia THOMAS LAB BLOOD ORDERABLES Fin al Result Performing Organization Address City/[facility]/ZIP Co de Phone Number ABRAHAN VELA ([place]) 1 [place] [address] * Comprehensive metabolic panel (06/03/2024 2:24 PM CDT) [facility] Sodium 139 135 - 145 mmol/L Potassium, pl 3.9 3.3 - 4.9 mmol/L [facility] (ERIC) Chloride 105 97 - 110 mmol/L [facility] ([facility]) CO2 25 22 - 32 mmol/L [facility] (ERIC) Anion gap 10 2 - 15 mmol/L [facility] (ERIC) BUN 12 6 - 25 mg/dL [facility] (ERIC) Creatinine 0.96 0.60 - 1.10 mg/dL [facility] ([facility]) Glucose 85 70 - 199 mg/dL [facility] (ERIC) Comment: Interpretive Data Fasting glucose >/= 126 mg/dl is diagnostic for diabetes. Fasting is defined as no caloric intake for at least 8 hours. Fasting glucose between 100 mg/dl to 125 mg/dl is diagnostic of prediabetes. In a patient with classic symptoms of hyperglycemia or hyperglycemic crisis, a random glucose >/= 200 mg/dl is diagnostic for diabetes. In the absence of unequivocal hyperglycemia, results should be confirmed by repeat testing. The classification and Diagnosis of Diabetes Diabetes Care 2021; 46: S19-S40. Current interpretive data was last revised 2022. Calcium 9.3 8.5 - 10.3 mg/dL [facility] ([facility]) Bilirubin, total 0.2 0.1 - 1.2 mg/dL [facility] (ER[facility]) Protein, pl 7.1 6.5 - 8.5 g/dL [facility] ([facility]) Albumin 4.0 3.5 - 5.0 g/dL [facility] ([facility]) Alk phos 72 40 - 130 Units/L [facility] ([facility]) ALT 15 7 - 45 Units/L [facility] ([facility]) AST 22 10 - 45 Units/L [facility] ([facility]) Blood 06/03/2024 2:24 PM CDT 06/03/2024 3:53 PM CDT us Silvia THOMAS LAB BLOOD ORDERABLES Fin al Result Performing Organization Address City/State/[facility] Co de Phone Number [facility] ([place]) 1 [facility] Department [place] [address] * Screening Mammogram Bilateral W Scooter (05/22/2024 1:55 PM UTILITY OPERATOR) Anatomical Region Laterality Modality Breast Bilateral Mammography 05/23/2024 9:37 PM UTILITY OPERATOR Impressions 05/23/2024 9:37 PM UTILITY OPERATOR There is no mammographic evidence to suggest malignancy. The patient may continue screening mammography as per ACR guidelines. FINAL ASSESSMENT: BI-RADS Category 1: Negative. Electronically signed by: Kathia Duncan M.D. Narrative 05/23/2024 9:37 PM UTILITY OPERATOR EXAMINATION: BILATERAL SCREENING MAMMOGRAM WITH TOMOGRAPHY HISTORY: Screening. COMPARISON(S): 2023, 2020, and 2018. TECHNIQUE: Full-field 2D images and digital tomosynthesis images were obtained. CAD was utilized. BREAST PARENCHYMAL COMPOSITION: There are scattered areas of fibroglandular density. FINDINGS: The asymmetry previously described on the right is consistent with the sternalis muscle. There are no suspicious masses. No suspicious calcifications are seen. There is no unexplained architectural distortion. There is no skin thickening seen. There are no mammographically abnormal lymph nodes seen in the axillae or elsewhere. us Self Screening Mammogram IMG MAMMO PROCEDURES Fi nal Result * Hemoglobin A1c (05/10/2024 7:21 AM UTILITY OPERATOR) Hgb A1C 5.3 4.0 - 5.6 % Estimated Average Glucose 105 mg/dL [facility]RAHAN [facility]A (ERIC) Comment: The ADA recommends reporting an estimated Average Glucose (eAG) with all Hemoglobin A1c results using the equation derived from a study of 507 normal and diabetic adults. Minority populations were underrepresented and children were not included. (Diabetes Care 31:4090-2378, 2008). The eAG is not equivalent to a fasting glucose. Blood 05/10/2024 7:21 AM UTILITY OPERATOR 05/10/2024 10:40 AM UTILITY OPERATOR Suresh Child MD LAB BLOOD ORDERABLE S Final Result ABRAHAN [facility]ELA (ERIC) 1 [facility] Department [place] [address] * Hepatitis C antibody Blood (02/17/2024 2:19 PM UTILITY OPERATOR) Hep C Ab Nonreactive Nonreactive Comment: Interpretive Data Nonreactive: Antibodies to HCV not detected. Does NOT exclude the possibility of recent exposure to HCV. Equivocal: Equivocal for HCV antibodies. Supplemental molecular testing will be automatically performed to determine infection status in accordance with current CDC screening recommendations. Reactive: Positive for HCV antibodies. This may represent current or past HCV infection. Supplemental molecular testing will be automatically performed to determine current infection status in accordance with current CDC screening recommendations. Interpretive data was last revised on 2019. Blood 02/17/2024 2:19 PM UTILITY OPERATOR 02/17/2024 7:28 PM UTILITY OPERATOR us Analia Ambriz MD LAB MICROBIOLOGY - GENERAL ORDERABLES Final Result ABRAHAN [facility] [address] Department [place] [address] * Albumin Creatinine Ratio, Urine (02/05/2024 12:17 PM UTILITY OPERATOR) Albumin Ur 22.1 mg/L Comment: Interpretive Data No reference range established. Current interpretive data was last revised 2018. Testing performed by: [address] [address] Creatinine Ur 254.3 mg/dL [facility] (ERIC) Comment: Interpretive Data No reference range established. Current interpretive data was last revised 2018. Testing performed by: [facility], [address] [place] [address]., [address] Albumin Creatinine Ratio, Ur 9 1 - 29 mg/g [facility]RAHAN [facility]ELA (REIC) Comment:Testing performed by : [address] [address] Urine 02/05/2024 12:1 7 PM UTILITY OPERATOR 02/05/2024 6:05 PM UTILITY OPERATOR us Suresh Child MD LAB URINE ORDERABLE S Final Result Performing Organization Address City/[facility]/ZIP Co de Phone Number [facility] (ERIC) 1 [facility] Department [place] [address] * (ABNORMAL) Lipid panel (09/23/2023 7:26 AM CDT) Cholesterol 228(H) 30 - 199 mg/dL Comment: Interpretive Data Ages < or = 19 years Acceptable: <170 mg/dL Borderline high: 170-199 mg/dL High: >or= 200 mg/dL Ages > or = 20 years Desirable: <200 mg/dL Borderline high: 200-239 mg/dL High: >or= 240 mg/dL Literature References: 1. Expert Panel on Integrated Guidelines for Cardiovascular Health and Risk Reduction in Children and Adolescents. Pediatrics 2011;128:S213 2. NCEP Expert Panel. Circulation 2004;110:227 Current Interpretive Data was last revised on 2017. Triglycerides 183(H) <=149 mg/dL [facility] (ERIC) Comment: Interpretive Data Ages < or = 9 years Acceptable: <75 mg/dL Borderline high: 75-99 mg/dL High: >or= 100 mg/dL Ages 10 to 20 years Acceptable: <90 mg/dL Borderline high: 90-129 mg/dL High: >or= 130 mg/dL Ages > or = 20 years Desirable: <150 mg/dL Borderline high: 150-199 mg/dL High: 200-499 mg/dL Very high: >or= 499 mg/dL Literature References: 1. Expert Panel on Integrated Guidelines for Cardiovascular Health and Risk Reduction in Children and Adolescents. Pediatrics 2011;128:S213 2. NCEP Expert Panel. Circulation 2004;110:227 Current Interpretive Data was last revised on 2017. HDL 34(L) >=40 mg/dL [facility] (ERIC) Comment: Interpretive Data Ages < or = 19 years Acceptable: >45 mg/dL Borderline low: 40-45 mg/dL Low: <40 mg/dL Ages > or = 20 years Desirable: >or= 60 mg/dL Low: <40 mg/dL Literature References: 1. Expert Panel on Integrated Guidelines for Cardiovascular Health and Risk Reduction in Children and Adolescents. Pediatrics 2011;128:S213 2. NCEP Expert Panel. Circulation 2004;110:227 Current Interpretive Data was last revised on 2017. LDL, calculated 157(H) <=129 mg/dL [facility] (ERIC) Comment: Interpretive Data Ages < or = 19 years Acceptable: <110 mg/dL Borderline high: 110-129 mg/dL High: >or= 130 mg/dL Ages > or = 20 years Optimal: <100 mg/dL Near optimal: 100-129 mg/dL Borderline high: 130-159 mg/dL High: >160 mg/dL Literature References: 1. Expert Panel on Integrated Guidelines for Cardiovascular Health and Risk Reduction in Children and Adolescents. Pediatrics 2011;128:S213 2. NCEP Expert Panel. Circulation 2004;110:227 Current Interpretive Data was last revised on 2017. Non-HDL Cholesterol 194 mg/dL [facility] (ERIC) Comment: Interpretive Data Ages < or = 19 years Acceptable: <120 mg/dL Borderline high: 120-144 mg/dL High: >145 mg/dL Ages > or = 20 years When triglycerides are >200 mg/dL, Non-HDL cholesterol is a secondary target of therapy with treatment goals that are 30 mg/dL greater than the LDL cholesterol target. Literature References: 1. Expert Panel on Integrated Guidelines for Cardiovascular Health and Risk Reduction in Children and Adolescents. Pediatrics 2011;128:S213 2. NCEP Expert Panel. Circulation 2004;110:227 Current Interpretive Data was last revised on 2017. Chol/HDL ratio 7 EDWARD VELA (ERIC) Blood 09/23/2023 7:26 AM CDT 09/23/2023 10:30 AM CDT Azra Nieves MD LAB BLOOD ORDERABLES F inal Result [facility] (ERIC) 1 [facility] Department [place] [address] * DIABETES EYE EXAM (06/14/2023) SCRIBED DIABETIC DILATED EYE EXAM Normal Result [facility] Historical Provider HEALTH MAINTENANCE Final Result * PAP SMEAR WITH HPV (05/15/2022) Scribed Pap Smear w/HPV Normal Comment:see care everywhere Result [facility] Historical Shannon [facility]SON HEALTH MAINTENANCE Final Result * COLONOSCOPY (04/09/2022 3:50 PM UTILITY OPERATOR) Historical Shannon [facility] HEALTH MAINTENANCE Final Result from Last 3 Months or Most Recently Relevant to Health Maintenance Insurance [employer] CIGNA Care Teams Site Manager Relationship Specialty Start Date End Date Suresh Child MD [address] [address] PCP - General Family Practice 02/04/24 Ayla Salazar PA [address] [place] [address] Physician Dominatrix 12/23/19 Raji Spears MD [address] [place] [address] Consulting Physician Rheumatology 04/01/23 Altaf Prasad MD [address] [facility] [place] [address] Referring Physician Obstetrics and Gynecology 04/01/23
--- OUTSIDE RECORDS SUMMARY | 2024-08-19 14:29 | XMS_ITS | Encounter Summary ---
Author Organization [facility] Healthcare Address [address] [place] [address] Care Team Providers Care Hospital Admissions Clerk Name Role Phone Ayla Salazar Unavailable Raji Spears MD Unavailable [phone] Altaf Prasad MD Unavailable [phone] Suresh Child MD Primary Care Provi jonelle Encounter Details Date Type Department Care Team (Late st Contact Info) Description 07/20/2024 Results Follow-Up [facility] Medical Group Gastroenterology at [address] [place] [address] Silvia Cannon PA [address] [place] [address] [address] [place] [address] RUQ Ultrasound Social History Tobacco Use Types Packs/Day Years [...] on file Legal Sex Female 1:00 AM UNIX ADMINISTRATOR Gender Identity Female 04/19/2020 10:14 AM UNIX ADMINISTRATOR Sexual Orientation Straight 04/19/2020 10 :14 AM UNIX ADMINISTRATOR documented as of this encounter Plan of Treatment Not on file documented as of this encounter Visit Diagnoses Not on filedocumented in this encounter Care Teams Hospital Admissions Clerk Relationship Specialty Start Date End Date Suresh Child MD [address] [facility] [address] [place] [address] PCP - General Family Practice 02/04/24 Ayla Salazar PA [address] [place] [address] Physician Counter Hand 12/23/19 Raji Spears MD [address] [address] Consulting Physician Rheumatology 04/01/23 Altaf Prasad MD [address] [place] [address] Referring Physician Obstetrics and Gynecology 04/01/23 documented as of this encounter
--- OUTSIDE RECORDS SUMMARY | 2024-08-19 14:29 | XMS_ITS | Data Portability ---
Author Organization [facility] Address [address] [place] [address] Care Team Providers Care Planimeter Operator Name Role Phone AZRA AHN Primary Care Provider Assessment Encounter Date Assessment Date Assessment LastModified by Organization Details LastModified Time 06/07/2024 06/07/2024 Annual gynecological exam performed. Patient will come back in a year unless there are new symptoms. [email or web address] Not available 06/07/2024 09:06:25 Plan of Treatment Reminders Order Date Submit Date Provider Last Modified By Organization Details Last Modified Time Details Appointments Robotic TLH 2024 11:30A Cecil PRASAD MD Not available Not available Not available SURG POST OP 2024 01:00P Cecil PRASAD MD Not available Not available Not available Lab hormone panel, serum or plasma 2024 025 [facility] (Lab), [address], [place], [address], 06/30/2024 04:31:15 pap, IG + HR HPV - HPV regardles s but if HPV is positive need subtyping 16,18/45 2024 025 [facility] (Lab), [address], [place], [address], 06/10/2024 14:06:36 dhea-sulf ate, serum 2024 025 [facility] (Lab), [address], [place], [address], 06/13/2024 13:24:23 hormone panel, serum or plasma 2024 025 [facility] (Lab), [address] [facility] [facility], [place], [address], 06/13/2024 13:24:23 progester one, serum 2024 025 [facility] (Lab), [address] [facility], [place], [address], 06/13/2024 13:24:23 prolactin , serum 2024 025 [facility] (Lab), [address] [facility], [place], [address], 06/13/2024 13:24:22 shbg (sex hormone-b inding globulin) , serum 2024 025 [facility] (Lab), [address], [place], [address], 06/13/2024 13:24:22 TSH, serum or plasma 2024 025 [facility] (Lab), [address] [facility], [place], [address], 06/13/2024 13:24:22 testoster one free/test osterone total, ratio, serum 2024 025 [facility] (Lab), [address] [facility], [place], [address], 06/13/2024 13:24:23 Referral None recorded. Procedures None recorded. Surgeries robotic assisted hysterect joe w/bilater al salpingo- oophorect joe (SURG) 2024 025 [facility], [facility] [address], [address], 08/11/2024 13:11:12 Imaging US, pelvis 2024 025 [email or web address], [address], [place], [address], 06/18/2024 21:06:13 US, transvagi nal 2024 025 [email or web address], [place], [address], 06/18/2024 21:06:13 US, pelvis, complete 2024 025 [email or web address], [address], [place], [address], 07/18/2024 11:40:58 Medication Orders Eulalia 0.35 mg tablet 2024 025 [id number], [address], [place], [place], [id number], 08/11/2024 16:49:42 Patient TargetsNo targets recorded. Patient InstructionsNo instructions recorded. Reason for Referral None Reported. Results Created Date Observation Date Name Description Value Unit Range Abnormal Flag Note LastModifiedBy Organization Detail LastModifiedTime 06/08/19 25 06/07/2024 IMAGE GUIDE D PAP AND HPV REGAR DLESS image guided Pap, HPV regardless of Pap result SEE RESULT S BELOW CASE REPOR T: Cytol ogy Gynec ologi josias Repor t Case: [id number] Autho franklin payan Provi jonelle: Marixa Peralta, BETTY Colle cted: 06/07 1035 Order ing Locat ion: [place] [facility] Recei [place]: 06/08 0711 First Scree n: Joleen [place] Speci men: Scree shannan Pap - Image d, Cervi x STATE MENT OF ADEQU ACY: Satis facto ry for evalu ation Trans forma tion zone compo nent prese nt ----- ----- ----- ----- ----- ----- ----- ----- ----- ----- ----- ----- ----- ----- ----- ----- ----- ---- FINAL DIAGN OSIS: Negat sabrina for Intra epith elial Alangilberto camarena or Manju gould (NIL) . Elect iraida scott by Joleen chu on 2024 at 1301 CDT ----- ----- ----- ----- ----- ----- ----- ----- ----- ----- ----- ----- ----- ----- ----- ----- ----- ---- HPV RESUL TS: HPV mRNA E6/E7 : No HPV mRNA Detec mikal NOTE: This high risk HPV mRNA assay detec ts fourt een high- risk HPV types (16, 18, 31, 33, 35, 39, 45, 51, 52, 56, 58, 59, 66, 68) witho ut diffe renti ation . COMME NT: This speci men was revie wed by a Cytot echno logis t and/o r Patho logis t (as indic ated in this repor t) after evalu ation using the Thinp rep Imagi ng Syste m. CLINI JOSIAS INFOR MATIO N: Menst rual Statu s: LMP (if appli cable ): Clini josias Histo ry/Pr eviou s Pap: Type of Neopl velma (if appli cable ): Signi fican t Clini josias Findi ngs: Other Histo ry: Hormo channing (if appli cable ): PAP EDUCA EL L NOTE: The Pap Test is a scree shannan test with an inher ent false negat sabrina rate. Liqui d-bas ed sampl ing may decre ase, but will not elimi jose, false negat sabrina resul ts. A negat sabrina resul t does not precl ude the prese nce and/o r devel opmen t of disea se, since the prese nce of abnor mal cells in the sampl e depen ds on the locat ion of the lesio n and sampl ing techn ique. Kendal nued regul ar scree shannan is the best metho d of cance r preve ntion . If repor mikal cytol ogic findi ng do not corre late with physi josias and/o r histo rical findi ngs, furth er inves tigat ion is recom eliel d, as clini marv warra nted. Not Available [facility] (Lab) [address] [facility], [place], [address], 06/10/2024 14:06:36 06/08/19 25 06/07/2024 HUMAN SEX HORMO NE SHERIN NG GLOBU PADMINI sex hormone binding globulin 28.9 nmole s/L 18.2-1 35.5 Not Available [facility] (Lab) [address] [facility], [place], [address], 06/13/2024 13:24:21 06/08/19 25 06/07/2024 TSH, REFLE X FREE T4 TSH 1.50 uIU/m L 0.30-5 .33 Not Available [facility] (Lab) [address] [facility], [place], [address], 06/13/2024 13:24:22 06/08/19 25 06/07/2024 PROLA CTIN prolactin, total 17.60 NG/mL 4.79-2 3.30 This assay was perfo rmed using [employer] ratio n reage nts and test kits. Value s obtai uriel with other assay metho ds or kits canno t be used inter sin eajoshy . Not Available [facility] (Lab) [address] [place], [address], 06/13/2024 13:24:22 06/08/19 25 06/07/2024 PROGE STERO NE progesterone 0.22 NG/mL This assay was perfo rmed using [employer] ratio n reage nts and test kits. Value s obtai uriel with other assay metho ds or kits canno t be used inter [facility] . Femal e Proge stero ne Range s: Folli cular phase 0.06- 0.89 ng/mL Ovula tion phase 0.12- 12.00 ng/mL Lutea l phase 1.83- 23.90 ng/mL Postm enopa usal <0.05 -0.13 ng/mL Healt hy Pregn ant Women 1st Trime ster 11.0- 44.30 2nd Trime ster 25.40 -83.3 0 3rd Trime ster 58.70 -214. 00 Not Available [facility] (Lab) [address] [place], [address], 06/13/2024 13:24:22 06/08/19 25 06/07/2024 FSH, LH, ESTRA DIOL estradiol 16.9 pg/mL This assay was perfo rmed using [employer] ratio n reage nts and test kits. Value s obtai uriel with other assay metho ds or kits canno t be used inter [facility] . Femal e Estra diol Range s: Folli cular phase 12.4- 233 pg/mL Ovula tion phase 41.0- 398 pg/mL Lutea l phase 22.3- 341 pg/mL Postm enopa usal <5-13 8 pg/mL Healt hy Pregn ant Women 1st Trime ster 154-3 243 pg/mL 2nd Trime ster 1561- 15496 pg/mL 3rd Trime ster 8525- >3000 0 pg/mL Not Available [facility] (Lab) [address] [place], [address], 06/13/2024 13:24:23 06/08/19 25 06/07/2024 FSH, LH, ESTRA DIOL FSH 20.3 mIU/m L This assay was perfo rmed using [employer] ratio n reage nts and test kits. Value s obtai uriel with other assay metho ds or kits canno t be used inter [facility] . Femal es Folli cular : 3.5-1 2.5 mIU/m L Ovula tion: 4.7-2 1.5 mIU/m L Lutea l: 1.7-7 .7 mIU/m L Postm enopa use: 25.8- 134.8 mIU/m L Not Available [facility] (Lab) [address] [facility], [place], [address], 06/13/2024 13:24:23 06/08/19 25 06/07/2024 FSH, LH, ESTRA DIOL LH 18.0 mIU/m L This assay was perfo rmed using [employer] ratio n reage nts and test kits. Value s obtai uriel with other assay metho ds or kits canno t be used inter sin eably . Femal es Mid-F ollic ular: 2.4-1 2.6 mIU/m L Mid-C ycle: 14.0- 95.6 mIU/m L Mid-L uteal : 1.0-1 1.4 mIU/m L Postm enopa use: 7.7-5 8.5 mIU/m L Not Available [facility] (Lab) [address] [facility], [place], [address], 06/13/2024 13:24:23 06/08/19 25 06/07/2024 DHEA SULFA TE DHEA-sulfate 68 ug/dL Femal e Range s Age(y ) Range (ug/d L) 10-15 34-28 0 15-20 65-36 8 20-25 148-4 07 25-35 99-34 0 35-45 61-33 7 45-55 35-25 6 55-65 19-20 5 65-75 9-246 > 75 12-15 4 Not Available [facility] (Lab) [address], [place], [address], 06/13/2024 13:24:23 06/08/19 25 06/07/2024 TESTO STERO NE, FREE( DIALY SIS) AND TOTAL (LC/M S/MS) testosterone , total 22 NG/dL 2-45 For addit ional infor bertha haynes e refer to http: //balaji camarena.que stdia gnost ics.c om/fa q/ Total Testo stero neLCM [facility] Q[facility] (This link is being provi ded for infor matio nal/ educa el l purpo ses only. ) This test was devel oped and its mariaa tical perfo rmanc e arlin cteri stics have been deter mined by [facility] [place]. It has not been clear ed or appro [place] by the U.S. Food and Drug Admin istra tion. This assay has been valid ated pursu ant to the CLIA regul ation s and is used for clini josias purpo ses. Not Available [facility] (Lab) [address], [place], [address], 06/13/2024 13:24:23 06/08/19 25 06/07/2024 TESTO STERO NE, FREE( DIALY SIS) AND TOTAL (LC/M S/MS) testosterone , free 3.0 pg/mL 0.1-6. 4 This test was devel oped and its mariaa tical perfo rmanc e arlin cteri stics have been deter mined by [facility] [place]. It has not been clear ed or appro [place] by the U.S. Food and Drug Admin istra tion. This assay has been valid ated pursu ant to the CLIA regul ation s and is used for clini josias purpo ses. Perfo rming Organ izati on Infor matio n: Site ID: AMD Name: [facility] [place] Insti tute Addre ss: [id number] [facility] [employer] [place], [place] Direc tor: Ly Izaguirre MD PhD Not Available [facility] (Lab) [address], [place], [address], 06/13/2024 13:24:23 06/30/19 25 06/29/2024 FSH, LH, ESTRA DIOL estradiol 20.1 pg/mL This assay was perfo rmed using [employer] ratio n reage nts and test kits. Value s obtai uriel with other assay metho ds or kits canno t be used inter [facility] . Femal e Estra diol Range s: Folli cular phase 12.4- 233 pg/mL Ovula tion phase 41.0- 398 pg/mL Lutea l phase 22.3- 341 pg/mL Postm enopa usal <5-13 8 pg/mL Healt hy Pregn ant Women 1st Trime ster 154-3 243 pg/mL 2nd Trime ster 1561- 88160 pg/mL 3rd Trime ster 8525- >3000 0 pg/mL Not Available [facility] (Lab) [address] [place], [address], 06/30/2024 04:31:15 06/30/19 25 06/29/2024 FSH, LH, ESTRA DIOL FSH 21.5 mIU/m L This assay was perfo rmed using [employer] ratio n reage nts and test kits. Value s obtai uriel with other assay metho ds or kits canno t be used inter [facility] . Femal es Folli cular : 3.5-1 2.5 mIU/m L Ovula tion: 4.7-2 1.5 mIU/m L Lutea l: 1.7-7 .7 mIU/m L Postm enopa use: 25.8- 134.8 mIU/m L Not Available [facility] (Lab) [address] [place], [address], 06/30/2024 04:31:15 06/30/19 25 06/29/2024 FSH, LH, ESTRA DIOL LH 16.8 mIU/m L This assay was perfo rmed using [employer] ratio n reage nts and test kits. Value s obtai uriel with other assay metho ds or kits canno t be used [facility] . Femal es Mid-F ollic ular: 2.4-1 2.6 mIU/m L Mid-C ycle: 14.0- 95.6 mIU/m L Mid-L uteal : 1.0-1 1.4 mIU/m L Postm enopa use: 7.7-5 8.5 mIU/m L Not Available [facility] (Lab) [address], [place], [address], 06/30/2024 04:31:15 06/18/1906/17/2024 US, pelvi s No observ ation record ed. [email or web address] [address], [place], [address], 06/17/2024 12:15:08 06/18/1906/17/2024 US, trans vagin al No observ ation record ed. [email or web address] [address], [place], [address], 06/17/2024 12:15:17 06/18/1906/17/2024 US, pelvi s No observ ation [facility] ed. [facility] [address] [facility], [place], [address], 06/29/2024 14:11:14 Result Notes None recorded. Problems Name Problem SNOMED Code Status Onset Date Resolution Date Notes Provider Name and Address Organization Details Recorded Time Irritable bowel syndrome 75138989 Active 2022 Azra Watson MD [address], [place], [address], [facility] 3 21:38:58 Rheumatoid arthritis 49674202 Active 2023 Clarisa joyce, [facility] 4 09:40:29 Diabetes mellitus 24324859 Active 2023 Clarisa joyce, [facility] 4 09:40:35 Hypertensive disorder 11326202 Active 2023 Clarisa joyce, [facility] 4 09:40:45 Problem Notes None recorded. Procedures Surgical History Date Name Laterality Status Provider Name and Address Organization Details Recorded Time 03/17/20 25 Date of Last Pap Smear completed Yazmin Inocencio [facility] 06/29/2024 09:38:29 05/23/19 25 Date of Last Mammogram completed Rachel Begum [facility] 06/07/2024 09:10:49 05/27/19 24 laparoscopic salpingo-oophore ctomy completed Clarisa [facility] 06/03/2023 09:43:16 04/09/19 23 [facility] 14:36:13 04/09/19 23 Date of Last Colonoscopy completed [facility] 05/15/2022 14:36:13 03/24/19 22 Colonoscopy completed [facility] 06/03/2023 09:41:28 03/24/18 96 Breast Biopsy completed [facility] 06/03/2023 09:41:20 Imaging Results None recorded. Procedure Notes None recorded. Medical Equipment None Reported. Allergies No known drug allergies Medications Name Sig Start Date Stop Date Status Note LastModified by Organization Details LastModified Time doxycycline hyclate 100 mg capsule 06/07 completed Not Available Not Available Not Available sulfasalazi ne 500 mg tablet TAKE 3 TABLETS BY MOUTH TWICE DAILY 06/02 completed Not Available Not Available Not Available tizanidine 2 mg tablet TAKE 1 TABLET BY MOUTH THREE TIMES DAILY NEEDED FOR MUSCLE SPASMS 06/29 completed Not Available Not Available Not Available trazodone 50 mg tablet active Not Available Not Available Not Available fluconazole 150 mg tablet 06/29 completed Not Available Not Available Not Available metoprolol succinate ER 50 mg tablet,exte nded release 24 hr TAKE 1 TABLET BY MOUTH TWICE DAILY IF SYMPTOMAT IC OTHERWISE TAKE 1 TABLET DAILY 06/29 completed Not Available Not Available Not Available meloxicam 15 mg tablet TAKE 1 TABLET BY MOUTH DAILY NEEDED FOR PAIN 06/07 completed Not Available Not Available Not Available sucralfate 1 gram tablet TAKE ONE TABLET BY MOUTH EVERY DAY BEFORE MEALS FOR FOURTEEN DAYS 05/15 completed Not Available Not Available Not Available venlafaxine ER 150 mg capsule,ext ended release 24 hr TAKE 1 CAPSULE BY MOUTH DAILY active Not Available Not Available No t Available topiramate 25 mg tablet active Not Available Not Available Not Available azathioprin e 50 mg tablet TAKE THREE TABLETS BY MOUTH EVERY DAY 05/15 completed Not Available Not Available Not Available omeprazole 40 mg capsule,del ayed release TAKE 1 CAPSULE BY MOUTH EVERY DAY BEFORE MEALS FOR STOMACH active Not Available Not Available No t Available leflunomide 20 mg tablet TAKE 1 TABLET BY MOUTH DAILY 06/07 completed Not Available Not Available Not Available tramadol 50 mg tablet TAKE 1 TABLET BY MOUTH TWICE DAILY WITH TYLENOL NEEDED FOR PAIN CONTROL 06/02 completed Not Available Not Available Not Available meloxicam 7.5 mg tablet TAKE ONE TABLET BY MOUTH EVERY DAY FOR SEVEN DAYS FOR flare ups of arthritis 05/29 completed Not Available Not Available Not Available oxycodone-a cetaminophe n 5 mg-325 mg tablet TAKE 1 TABLET BY MOUTH EVERY 4 HOURS NEEDED FOR PAIN 06/02 completed Not Available Not Available Not Available terbinafine HCl 250 mg tablet active Not Available Not Available Not Available methocarbam ol 750 mg tablet TAKE 1 TABLET BY MOUTH THREE TIMES DAILY 06/02 completed Not Available Not Available Not Available dicyclomine 20 mg tablet TAKE 1 TABLET BY MOUTH THREE TIMES A DAY 05/15 completed Not Available Not Available Not Available estradiol 2 mg tablet TAKE 1 TABLET BY MOUTH EVERY DAY active Not Available Not Available No t Available scopolamine 1 mg over 3 days transdermal patch APPLY 1 PATCH TOPICALLY TO THE SKIN EVERY 72 HOURS NEEDED FOR NAUSEA 06/07 completed Not Available Not Available Not Available norethindro ne (contracept sabrina) 0.35 mg tablet TAKE 1 TABLET BY MOUTH EVERY DAY 08/11 completed Not Available Not Available Not Available ondansetron 4 mg disintegrat ing tablet TAKE 1 TABLET BY MOUTH EVERY 6 HOURS NEEDED FOR NAUSEA 05/15 completed Not Available Not Available Not Available metformin ER 500 mg tablet,exte nded release 24 hr TAKE 1 TABLET BY MOUTH EVERY DAY WITH MEALS 06/07 completed Not Available Not Available Not Available dicyclomine 10 mg capsule 08/11 completed Not Available Not Available Not Available amoxicillin 875 mg-magno jewell clavulanate 125 mg tablet TAKE 1 TABLET BY MOUTH TWICE A DAY 08/11 completed Not Available Not Available Not Available ezetimibe 10 mg tablet TAKE 1 TABLET BY MOUTH EVERY DAY active Not Available Not Available No t Available cyclobenzap rine 5 mg tablet TAKE 1 TABLET BY MOUTH THREE TIMES DAILY NEEDED FOR MUSCLE SPASM 06/07 completed Not Available Not Available Not Available nitrofurant oin monohydrate /macrocryst als 100 mg capsule TAKE ONE CAPSULE BY MOUTH EVERY TWELVE HOURS FOR FIVE DAYS DIRECTED 05/15 completed Not Available Not Available Not Available FeroSul 325 mg (65 mg iron) tablet TAKE 1 TABLET BY MOUTH DAILY WITH BREAKFAST active Not Available Not Available No t Available Simponi 50 mg/0.5 mL subcutaneou s pen injector INJECT 0.5 ML UNDER THE SKIN EVERY MONTH 05/15 completed Not Available Not Available Not Available OneTouch Verio test strips 08/11 completed Not Available Not Available Not Available Creon 36,000 unit-114,00 0 unit-180,00 0 unit capsule,del ayed release TAKE THREE CAPSULES BY MOUTH WITH THE FIRST BITE OF YOUR MEALS AND TAKE ONE CAPSULE BY MOUTH WITH THE FIRST BITE OF A SNACK 02/28 completed Not Available Not Available Not Available Zenpep 40,000 unit-126,00 0 unit-168,00 0 unit capsule,del ayed release TAKE 2 CAPSULES BY MOUTH WITH MEALS AND 1 CAPSULE WITH SNACK. UP TO 8 CAPSULES DAILY active Not Available Not Available No t Available Ozempic 0.25 mg or 0.5 mg (2 mg/1.5 mL) subcutaneou s pen injector INJECT UNDER THE SKIN 0.25MG ONCE WEEKLY FOR ONE MONTH THEN INCREASE TO 0.5MG WEEKLY 08/06 completed Not Available Not Available Not Available OneTouch Delica Plus Lancet 30 gauge 06/29 completed Not Available Not Available Not Available Ozempic 1 mg/dose (4 mg/3 mL) subcutaneou s pen injector INJECT 1 MG UNDER THE SKIN ONCE A WEEK 06/29 completed Not Available Not Available Not Available Mounjaro 7.5 mg/0.5 mL subcutaneou s pen injector ADMINISTE R 7.5 MG UNDER THE SKIN EVERY 7 DAYS 06/07 completed Not Available Not Available Not Available Mounjaro 5 mg/0.5 mL subcutaneou s pen injector ADMINISTE R 5 MG UNDER THE SKIN EVERY 7 DAYS 06/07 completed Not Available Not Available Not Available Mounjaro 10 mg/0.5 mL subcutaneou s pen injector ADMINISTE R 10 MG UNDER THE SKIN EVERY 7 DAYS 08/11 completed Not Available Not Available Not Available Mounjaro 12.5 mg/0.5 mL subcutaneou s pen injector ADMINISTE R 12.5 MG UNDER THE SKIN EVERY 7 DAYS active Not Available Not Available No t Available Ozempic 0.25 mg or 0.5 mg (2 mg/3 mL) subcutaneou s pen injector INJECT 0.5 MG EVERY WEEK SUBCUTANE IOUS ROUTE DIRECTED FOR 28 DAYS 06/02 completed Not Available Not Available Not Available Vitals Date Recorded Body height Body mass index (BMI) Body weight Systolic blood pressure Diastolic blood pressure Provider Name and Address Organization Details Last Updated DateTime 06/03/2023 162.56 cm 50.8 kg/m2 878742.3 4 g 138 mm[Hg] 91 mm[Hg] Clarisa Machuca [facility] 4 09:38:27 Date Recorded Body height Body mass index (BMI) Body weight Systolic blood pressure Diastolic blood pressure Provider Name and Address Organization Details Last Updated DateTime 06/07/2024 162.56 cm 46.5 kg/m2 722796.5 3 g 117 mm[Hg] 81 mm[Hg] Rachel Kel [facility] 5 09:08:15 Date Recorded Body height Body mass index (BMI) Body weight Systolic blood pressure Diastolic blood pressure Provider Name and Address Organization Details Last Updated DateTime 06/29/2024 162.56 cm 45.1 kg/m2 065582.7 9 g 119 mm[Hg] 68 mm[Hg] Yazmin Painter [facility] 5 09:35:55 Date Recorded Body height Body mass index (BMI) Body weight Systolic blood pressure Diastolic blood pressure Provider Name and Address Organization Details Last Updated DateTime 08/11/2024 162.56 cm 44.5 kg/m2 940249.4 2 g 114 mm[Hg] 79 mm[Hg] Yazmin Inocencio [facility] 16:46:17 Social History Question Answer Notes LastModified by Organizat ion Details LastModified Time Tobacco Smoking Status Never Smoker Rachel Begum [place], [facility] 03/28/2023 15:21:57 Are You Blind Or Do You Have Difficulty Seeing? No Information n ot available 05/15/2022 What Is Your Level Of Caffeine Consumption? Occasional Information not available 05/15/2022 How Much Tobacco Do You Chew? None Information not available 05/15/2022 In The 14 Days Before Symptom Onset, Have You Had Close Contact With A Laboratory-confirm ed COVID-19 While That Case Was Ill? No Information n ot available 05/15/2022 In The 14 Days Before Symptom Onset, Have You Had Close Contact With A Person Who Is Under Investigation For COVID-19 While That Person Was Ill? No Information not available 05/15/2022 Have You Been To An Area Known To Be High Risk For COVID-19? No [email or web address] Information not available 02/28/2023 Are You Deaf Or Do You Have Serious Difficulty Hearing? No Information not available 05/15/2022 What Type Of Diet Are You Following? REGULAR Information n ot available 05/15/2022 What Is The Highest Grade Or Level Of School You Have Completed Or The Highest Degree You Have Received? [id number] Information not available 05/15/2022 Are There Any Guns Present In Your Home? No Information not available 05/15/2022 Do You Use Protection During Sex? No Information not available 05/15/2022 Do You Use Your Seat Belt Or Car Seat Routinely? Yes Information not available 05/15/2022 Do You Have Smoke And Carbon Monoxide Detectors In Your Home? Yes Information not available 05/15/2022 How Much Tobacco Do You Smoke? No Information not available 05/15/2022 Do You Use Sunscreen Routinely? No Information not available 05/15/2022 Have You Used IV Drugs? No Information not available 05/15/2022 Do You Have Difficulty Walking Or Climbing Stairs? No [email or web address] Information not available 03/28/2023 Sex: Unknown Functional Status Question Answer Note LastModified by Organizat ion Details LastModified Time Do you use any illicit or recreational drugs? No Information not available 05/15/2022 What is your level of alcohol consumption? None Information not available 05/15/2022 Are you able to walk? [email or web address] Information not available 05/15/2022 Are you able to care for yourself? 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 No Information not available 03/28/2023 What is your exercise level? Occasional Information not available 05/15/2022 Mental Status Question Answer Note LastModified by Organization D etails LastModified Time Do you feel stressed (tense, restless, nervous, or anxious, or unable to sleep at night)? [id number] Information not available 05/15/2022 Family History Relationship Description Onset Age of this Age Resolved Age Notes LastModified by Organization Details LastModified Time Paternal Grandfather Heart disease [email or web address] Not available 06/02 09:39:25 Maternal Grandmother Myocardial infarction [email or web address] Not available 05/22 09:39:25 Maternal Grandmother Hypertensive disorder Not available 06/02 09:39:25 Maternal Grandmother Heart disease [email or web address] Not available 06/02 09:39:25 Maternal Grandmother Diabetes mellitus [email or web address] Not available 06/02 09:39:25 Mother Hypercholest erolemia [email or web address] Not available 06/02 09:39:25 Mother Disorder of lung Not available 06/02 09:39:25 Mother Hypertensive disorder [email or web address] Not available 06/02 09:39:25 Mother Diabetes mellitus [email or web address] Not available 06/02 09:39:25 Paternal Grandmother Hypercholest erolemia [email or web address] Not available 06/02 09:39:25 Paternal Grandmother Myocardial infarction [email or web address] Not available 05/22 09:39:25 Paternal Grandmother Cerebrovascu lar accident Not available 09:39:25 Paternal Grandmother Hypertensive disorder [email or web address] Not available 06/02 09:39:25 Paternal Grandmother Heart disease [email or web address] Not available 06/02 09:39:25 Paternal Grandmother Diabetes mellitus Not available 06/02 09:39:25 Maternal Aunt Myocardial infarction [email or web address] Not available 05/22 09:39:25 Maternal Aunt Malignant neoplasm of uterus [email or web address] Not available 06/02 09:39:25 Maternal Aunt Diabetes mellitus [email or web address] Not available 06/02 09:39:25 Father Hypercholest erolemia Not available 06/02 09:39:25 Maternal Grandfather Myocardial infarction [email or web address] Not available 05/22 09:39:25 Maternal Grandfather Heart disease [email or web address] Not available 06/02 09:39:25 Maternal Grandfather Diabetes mellitus [email or web address] Not available 06/02 09:39:25 Paternal Aunt Hypercholest erolemia [email or web address] Not available 06/02 09:39:25 Paternal Aunt Malignant tumor of cervix [email or web address] Not available 06/02 09:39:25 Paternal Aunt Malignant neoplasm of uterus [id number] Not available 06/02 09:39:25 Paternal Aunt Diabetes mellitus [email or web address] Not available 06/02 09:39:25 Paternal Uncle Disorder of lung [email or web address] Not available 06/02 09:39:25 Paternal Uncle Malignant neoplasm of lung [email or web address] Not available 07/23 16:06:25 Paternal Uncle Malignant tumor of colon [email or web address] Not available 06/02 09:39:25 Medical History Condition Response Allergies (Food, seasonal, environmental ) N Other N Blood Transfusion N Breast Cancer N Drug/Latex Allergies/Reactions N Dermatologic Disorders N Lung Disease N Defects or Inherited Disease N Breast Problem Y Gestational Diabetes N Hematologic disorders N Anesthesia Complications N History of STI N Deep Vein Thrombosis N Polycystic ovary syndrome N Anxiety Disorder Y Autoimmune disease Y Arthritis Y Polyps N Infertility N Acid Reflux (GERD) Y History of abnormal pap N Cancer N Varicosities N Stroke N Neurologic/Epilepsy N Endometriosis N High Cholesterol N Fibromyalgia N Headaches N Kidney Disease N Heart Problems Y Thyroid Problems N Kidney or Bladder Problems N GI Problems Y Eating Disorder N Anemia Y Art (IVF or FET) N Psychiatric Illness N Ovarian Cancer N Diabetes Y Pulmonary (TB, Asthma) N Hepatitis/Liver Disease Y No Past Medical History N Eczema N Urinary Tract Infection Y Abuse/Domestic Violence N Trauma/Violence N Depression/ depression Y Heart Disease N Pre-Eclampsia N Hypertension Y Osteoporosis N Thrombophilias N Gynecological History Statement/Question Response Date of Last Mammogram 05/22/2024 Flow Heavy Date of LMP 05/11/2024 N Was last menstrual period normal Y STIs/STDs N Date of Last Colonoscopy 04/09/2022 Abstinence Desired Control Method Ablation On BCP's at Conception? N HPV Vaccine N Duration of Flow (days) 6 Current Control Method Tubal Ligat ion Are cycles usually normal N Frequency of Cycle (Q days) 32 Sexually Active? N Menses Monthly N Date of DEXA bone scan Age of first menstrual cycle 8 Date of Last Pap Smear 06/07/2024 Sexual Problems? N LMP Definite 04/09/2022 N Obstetrics History GPAL:G 0 P 0 0 0 0 Past Encounters Encounter ID Performer Location Encounter Start Date Encounter Closed Date Diagnosis/Indication Diagnosis SNOMED-CT Code Diagnosis ICD10 Code Diagnosis Note [id number] DIRK Varner [facility] [address] [address] 05/15/2022 14:22:41 05/15/2022 15:59:40 Screening for malignant neoplasm of breast 493196806 Z12.39 Gynecologi c examination 92919454 Z01.419 Suggested Calcium with Vitamin D 1200-1500m g daily. Patient advised to get an annual flu shot in the fall and she could obtain at [facility] or [facility] care clinic. Also to obtain TDap vaccinatio n if you have not had one in the last 10 years. Recommend yearly mammograms . Encouraged monthly self breast exams. Encourage safe sexual practices, to use condoms and limit partners if not already in a monogamous relationsh ip. Engage in daily exercise of low impact aerobic exercise 45-60 minutes 4-5 times weekly. Avoid tobacco and illicit drugs as well as using moderation with alcohol intake less than 1-2 8 oz beverages daily. This lifestyle behavior pattern will lead to less health conditions and longer life span. If BMI greater than 25 weight watchers or dietary consult advised. All questions have been answered. Patient appears to understand informatio n, but if you have any questions please call or respond to this email. WWENever Jose hx of abnormal paps, last pap 2015pap doneSTI testing declinedMa mmogram order given to patientRec ently had CT scan done for ankylosing spondyliti s. Found to have 6cm ovarian cyst. She is experienci ng mild pelvic pain at random times. We agreed to pursue a pelvic u/s for further evaluation . U/s ordered. ED precaution s discussed. RTC for pelvic u/s and f/u appointmen t Time spent in visit is a total of 20 mins with at least 50% of visit consisting of counseling and review of plan of care. Cyst of ovary [id number] N 83.209 [id number] MD Alexis Nesbitt [address] [address] 05/22/2022 10:48:23 05/22/2022 14:50:03 Cyst of ovary 77976981 N83.209 [id number] MD Alexis Nesbitt [address] [address] 05/29/2022 11:46:34 06/03/2022 16:19:39 Cyst of left ovary [id number] 4597722 N83.202 [id number] MD Alexis Nesbitt [address],[place] [address] 05/29/2022 14:44:06 05/29/2022 14:55:19 [id number] Azra Watson MD [facility] [address],[place] [address] 07/10/2022 09:21:34 07/10/2022 10:29:28 Pain in pelvis 88500950 R10.2 N83.299 [id number] Azra Watson MD [facility] [address],[place] [address] 08/06/2022 16:30:52 08/07/2022 10:24:27 Hemorrhagic cyst of ovary 014575729 N83.209 Cyst of left ovary [id number] 2735008 N83.202 physiologi c Left lower quadrant pain 125577455 R10.32 [id number] Jessy Barahona [facility] [address],[place] [address] 02/28/2023 14:02:28 03/05/2023 17:08:16 Cyst of ovary 25144396 N83.[address] scan which recommende d a f/u TVUS US.Because of the size of left ovarian cluster or possible adnexal lesion that is 5.8 x 5 x 4.2cm I have recommende d her f/u be with an MD (female) to review the scheduled TVUS and review plan of care in the event surgical interventi on is needed.She is stable but still symptomati c.We have reviewed precaution s for Ovarian torsion/ED precaution s with understand ing verbalized . UTD Pap 2022Hx of ovarian cysts (see imaging 05/2022 & 06/2022) Time spent in visit is a total of 30 mins with at least 50% of visit consisting of counseling and review of plan of care. Menorrhagia 903287752 N9 2.0 Options discussed for heavy menses (including but not limited to various BC methdods/e ndometrial ablation); she will further discuss her goals for her menses during her MD consult. [id number] Altaf Prasad MD [facility] [address],[place] [address] 03/14/2023 16:48:36 03/16/2023 09:40:44 Cyst of left ovary [id number] N83.202 R10.2 [id number] Altaf Prasad MD [facility] [address] [address] 03/28/2023 15:18:52 03/28/2023 16:28:49 Mass of ovary 736546224 R19.09 Menorrhagia 468180998 N9 2.0 This patient is a 43year-old female presents for heavy vaginal bleeding. She has longstandi ng very heavy bleeding. Her menses are regular. However, they require double protection . Patient has accidents, getting blood on her bedding and clothing. Is affected work. She changes a pad or tampon every hour. She leaks blood around the pad and tampon. This bleeding has a profound impact on her quality of life and her activities of daily living. We discussed treatment options. We agreed to move forward with the surgical procedure. We are going to perform endometria l ablation along with other surgical Treatments . Patient has a longstandi ng complex left ovarian cystic mass. It is intermitte ntly painful. It appears to be a benign tumor in nature. Possibly malignant. She also has a right ovarian cyst. We discussed treatment options in detail. This has been present for some time. Close to a year with intermitte nt pain. We agreed to treat. We would perform left oophorecto my bilateral salpingect joe along with the endometria l ablation. We spent more than 40 minutes face-to-fa ce. More than 50% was counseling . We made a decision to perform surgery. [id number] Altaf Prasad MD [facility] [address] [address] 05/21/2023 16:40:35 05/21/2023 17:30:58 Menorrhagia 815559236 N92.0 Mass of ovary 395960751 R19.09 43-year-ol d female with menorrhagi a and cystic ovarian mass. We have agreed to perform endometria l ablation With hysterosco py and laparoscop ic bilateral salpingect joe with left oophorecto my. she is completed the informed consent process and is ready to proceed. She understand s the risks, benefits, and alternativ es. [id number] Altaf Prasad MD [facility] [address] [address] 06/03/2023 09:26:02 06/03/2023 09:51:14 Postoperative care [id number] Z48.89 this patient is a 43-year-ol d female presents for postop follow-up. She had a laparoscop ic bilateral salpingect joe with left oophorecto my and endometria l ablation. 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 She is recovering normally. She is some mild vaginal discharge that is resolving. She has incisions that are intact and healing well. She will follow-up as needed. She will go back to work tomorrow. [id number] DIRK Varner [facility] [address] [address] 06/07/2024 08:53:41 06/07/2024 11:34:15 Gynecologic examination 25297685 Z01.419 Z11.51 WWEBC - BSPap - done todaySTI screen - declinedMa mmogram - UTDColon cancer screening - [facility] - UTD/PCPRTC in 1 yr or sooner if needed Suggested Calcium with Vitamin D daily. Patient advised to get an annual flu shot in the fall and she could obtain at local pharmacy. Also to obtain TDap vaccinatio n if you have not had one in the last 10 years. Recommend yearly mammograms . Encouraged monthly self breast exams. Encourage safe sexual practices, to use condoms and limit partners if not already in a monogamous relationsh ip. Engage in regular exercise. Avoid tobacco and illicit drugs. This lifestyle behavior pattern will lead to less health conditions and longer life span. If BMI greater than 25 dietary consult advised. All questions have been answered. Abnormal u terine bleeding [id number] 9100 N93.9 Discussed recent return of heavy periods s/p endometria l ablationwi ll check labs and pelvic u/sMD u/s f/u scheduled Time spent in visit is a total of 30 mins with at least 50% of visit consisting of counseling and review of plan of care. Menopausal symptom 07111 002 N95.1 [id number] Altaf Prasad MD [facility] [address] [address] 06/17/2024 09:19:49 06/17/2024 10:15:50 Abnormal uterine bleeding 2989906598 9100 N93.9 R10.2 [id number] Altaf Prasad MD [facility] [address] [address] 06/29/2024 09:19:07 06/29/2024 10:18:36 Abnormal uterine bleeding 2966690131 9100 N93.9 R10.2 Menorrhagia 239808112 N9 2.0 This patient is a 44-year-ol d female presents for heavy vaginal bleeding. She has longstandi ng very heavy bleeding. Her menses are regular. However, they require double protection . Patient has accidents, getting blood on her bedding and clothing. Is affected work. She changes a pad or tampon every hour. She leaks blood around the pad and tampon. This bleeding has a profound impact on her quality of life and her activities of daily living. Endometria l ablation is not a good candidate for hormonal treatments . IUD not likely to be placed Given scarring. We discussed treatment options. She would like definitive surgical treatment. We agreed to robotic hysterecto my with bilateral salpingo-o ophorectom y spent over 30 minutes on her care in total. [id number] Altaf Prasad MD [facility] [address] [address] 08/11/2024 16:06:17 08/12/2024 07:03:27 Pain in pelvis 18747073 R10.2 this patient is a 44-year-ol d female with severe pelvic pain. We have agreed to perform total laparoscop ic hysterecto my bilateral salpingo-o ophorectom y. The patient understand s the risks , benefits, and alternativ es. Health Concerns Section Related Observation LastModified by Organization Detai ls LastModified Time None Recorded Concern Status LastModified by Organization Details LastModified Time None Recorded Advance Directives Directive None Recorded Payers Encounter Date Sequence Insurance Name Policy Number Policy Guzman Covered Member ID Guzman Member ID Guarantor Name 06/03/2023 1 [employer] [id number] Radha Dill [id number] 1 Radha Dill 06/07/2024 1 [employer] [id number] Radha Dill [id number] 1 Radha Dill 06/17/2024 1 [employer] [id number] Radha Dill [id number] 1 Radha Dill 06/29/2024 1 [employer] [id number] Radha Dill [id number] 1 Radha Dill 08/11/2024 1 [employer] [id number] Radha Dill [id number] 1 Radha Dill Notes Date Note Type Note Provider Name and Address Organization Details Recorded Time 06/03/2023 text/html this patient is a 43-year-old female presents for postop follow-up. She had a laparoscopic bilateral salpingectomy with left oophorectomy and endometrial ablation. 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 She is recovering normally. She is some mild vaginal discharge that is resolving. She has incisions that are intact and healing well. She will follow-up as needed. She will go back to work tomorrow. Altaf Prasad MD [address], [place], [address], [facility] 06/03/2023 09:49:48 06/07/2024 text/html Annual GYNReport ed bypatient.Menstrual cycle:Menorrhagia Urinary symptoms:No hematuria; No incontinence Vulva:No genital lesion Vagina:Normal vaginal discharge Breast:No breast pain; No breast lump; No nipple discharge Current Contraception:Satisfi ed with current contraception; BS Sexual complaints:No sexual complaints; No pain during intercourse; Normal libido Menopausal Symptoms:Normal vaginal lubrication;Hot flashes Psychological symptoms:No depression; No anxiety; No PMDD Preventive measures:Encourage self breast examination; Encourage regular exercise; Encourage no tobacco use; Encourage regular mammograms starting age 40Notes:44yo wweh/o BS, LO and endometrial ablation 05/2023last pap 2022 : nilm, HPV (-)she is not SAfor the last 4 months periods have return, lasting about 6 days, changing pads every 1-2 hours.has started experiencing hot flashesmammogram UTD 5colonoscopy [id number] Marixa PeraltaDIRK [address], [place], [address], [facility] 06/07/2024 11:31:40 06/29/2024 text/html This patient is a 44-year-old female presents for heavy vaginal bleeding. She has longstanding very heavy bleeding. Her menses are regular. However, they require double protection. Patient has accidents, getting blood on her bedding and clothing. Is affected work. She changes a pad or tampon every hour. She leaks blood around the pad and tampon. This bleeding has a profound impact on her quality of life and her activities of daily living. Endometrial ablation is not a good candidate for hormonal treatments. IUD not likely to be placed Given scarring. We discussed treatment options. She would like definitive surgical treatment. We agreed to robotic hysterectomy with bilateral salpingo-oophorectomy Altaf Prasad MD [address], [place], [address], [facility] 06/29/2024 10:17:07 08/11/2024 text/html this patient is a 44-year-old female with severe pelvic pain. We have agreed to perform total laparoscopic hysterectomy bilateral salpingo-oophorectomy . The patient understands the risks , benefits, and alternatives. The patient understands the procedure. The procedure was described to the patient in great detail. the patient also understands the risks. The risks were also explained in detail. She understands that injuries May occur during surgery. She understands these injuries can result in hospitalization, more surgery, and severe illness. She understands there is risk of hemorrhage and infection. Altaf Prasad MD [address], [place], [address], [facility] 08/11/2024 19:26:26 OBGyn Episode No OBEpisode recorded.
--- OUTSIDE RECORDS SUMMARY | 2024-08-19 14:29 | XMS_ITS | Referral Summary ---
Author Organization [facility] [address] [place] [id number] Care Team Providers Care [employer] Community Relations Coordinator Name Role Phone Ayla Salazar Unavailable Raji Spears MD Unavailable [phone] Altaf Prasad MD Unavailable Suresh Child MD Primary Care Provi jonelle Encounters Date Type Department Care Team Description 07/20/2024 Results Follow-Up [facility] Gastroenterology at [address], [place] [phone] Silvia Cannon PA RUQ Ultrasound 07/17/2024 9:21 AM CDT - 07/17/2024 11:59 PM CDT Hospital Encounter [facility] 1 [place] [address] Liver fibrosis Discharge Disposition: Discharge to home or self care 06/23/2024 7:46 AM CDT - 06/23/2024 11:59 PM CDT Hospital Encounter [facility] Orthopedics and Sports Medicine [address] [place] [address] [address], [place] [phone] Discharge Disposition: Discharge to home or self care 06/23/2024 7:46 AM CDT - 06/23/2024 11:59 PM CDT Hospital Encounter [facility] Orthopedics and Sports Medicine [address] [place] [address] [address], [place] [address] Discharge Disposition: Discharge to home or self care 06/23/2024 3:15 PM CDT Office Visit [facility] Orthopedics and Sports Medicine [address] [place] [address] [address] [place] [address] Stanley Snider PA Primary osteoarthritis of right knee (Primary Dx); Primary osteoarthritis of left knee; Morbid obesity with BMI of 45.0-49.9, adult (HCC) 06/15/2024 Results Follow-Up [facility] Gastroenterology at [address] [place] [address] Silvia Cannon PA Pancreatic elastase, stool 06/08/2024 8:00 PM CDT - 06/08/2024 11:59 PM CDT Hospital Encounter [address] Pancreatic insufficiency Discharge Disposition: Discharge to home or self care 06/03/2024 2:30 PM CDT Lab [address] Heartburn; Liver fibrosis 06/03/2024 1:45 PM CDT Office Visit [facility] Gastroenterology at [address] [place] [address] Silvia Cannon PA Abdominal cramping (Primary Dx); Liver fibrosis; Pancreatic insufficiency; Fecal urgency; Abdominal bloating; Excessive gas; Heartburn 05/24/2024 Results Follow-Up [facility] Primary Care at [address] [place] [address] Suresh Child MD Screening Mammogram Bilateral W Scooter 05/22/2024 1:39 PM CHIP BIN CONVEYOR TENDER - 05/22/2024 11:59 PM CHIP BIN CONVEYOR TENDER Hospital Encounter [facility] 1 [place] [address] Screening mammogram, encounter for Discharge Disposition: Discharge to home or self care from Last 3 Months Allergies Active Allergy Reactions Criticality Noted Date Comments Kxszand-Rhe-Zwe Reductase Inhibitors Muscle pain Medium 04/01/2023 Intolerance [...] day for 7 days 14 tablet 08/03/19 025 Active Problems Problem Noted Date Diagnosed [...] [place] Assessment & Plan (04/01/2023 10:47 AM CHIP BIN CONVEYOR TENDER): Chronic. Very well controlled on current regimen. [...] cholesterol. Assessment & Plan (04/01/2023 10:48 AM CHIP BIN CONVEYOR TENDER): Patient reports prior intolerance to both atorvastatin [...] Effexor Assessment & Plan (04/01/2023 10:48 AM CHIP BIN CONVEYOR TENDER): Chronic. Well controlled on current medication. We will continue for now. Brief supportive counseling provided. Monitor Diabetes mellitus, type 2 05/22/2022 Assessment & Plan (09/30/2023 9:20 AM CDT): Chronic. Diabetes is controlled. Obesity needs improvement encouraged healthy diet, exercise, weight loss. Continue current prescription medication Diverticulosis of colon 07/26/2020 Gastroesophageal reflux disease 07/26/2020 Assessment & Plan (04/01/2023 10:42 AM CHIP BIN CONVEYOR TENDER): Chronic. Relatively controlled with omeprazole. Continue. Liver fibrosis 07/26/2020 Overview (04/01/2023): Liver biopsy done 08/14/20 at [facility] -- Steatohepatitis, NAFLD score 6 -- Steatosis, diffuse -- Mild portal inflammation and rare foci of lobular infiltration -- Prominent balloon degeneration -- Fibrosis stage, mild, stage 1 Assessment & Plan (09/30/2023 9:18 AM CDT): Encouraged healthy diet, exercise, weight loss. Liver enzymes are normal. We will need to monitor with starting Zetia Assessment & Plan (04/01/2023 10:43 AM CHIP BIN CONVEYOR TENDER): Mild fibrosis on liver biopsy in 2020. [place] likely due to nonalcoholic steatohepatitis. Counseled on healthy diet, exercise, weight loss. We will see if increased dose of Ozempic can provide added weight loss benefits in addition to helping with her diabetes control. Patient needs to transition GI doctors due to change in insurance. She previously saw Dr. Livingston at [facility]. Given Dr. Livingston is now with DELVIN/Michaela at [facility] we will go ahead and refer back to her. Pancreatic insufficiency 07/26/2020 Assessment & Plan (09/30/2023 9:19 AM CDT): Chronic. Symptoms controlled with pancrelipase. Continue Assessment & Plan (04/01/2023 10:46 AM CHIP BIN CONVEYOR TENDER): Previously diagnose. Symptoms are relatively controlled as long as she takes the pancreatic enzymes prior to meals. 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 Livingston. Last fiber scan was in 2020 that suggested S3 steatosis and F4 scarring. Liver biopsy done 07/2020 consistent with kix-omcisgs-pzxlkxcyzx steatohepatitis with signs of early fibrosis but not cirrhosis. Was recommended diet, exercises, weight loss Assessment & Plan (09/30/2023 9:18 AM CDT): Chronic. Liver enzymes have been normal. Encouraged healthy diet, exercise, weight loss. Monitor liver enzymes. Keep alcohol in moderation Assessment & Plan (04/01/2023 10:43 AM CHIP BIN CONVEYOR TENDER): Diagnosed previously. Counseled on healthy diet, exercise, [...] loss Assessment & Plan (04/01/2023 10:46 AM CHIP BIN CONVEYOR TENDER): Chronic. Diagnosed about 2 years ago at [facility]. Patient reports her last PCP was 1 [...] Continue Arava. Keep upcoming appointment with new water pollution control technician given her water pollution control technician left the system Assessment & Plan (04/01/2023 10:44 AM CHIP BIN CONVEYOR TENDER): Chronic. Currently supposed to be on sulfasalazine but not taking consistently. Has been following with Rheumatology, Dr. Spears. He has her on p.r.n. and tramadol and Flexeril as well. Patient has an appointment to establish with new water pollution control technician next month. We will defer management of autoimmune diseases and tramadol to the water pollution control technician Scleroderma 07/26/2020 02/17/2024 Assessment & Plan (09/30/2023 9:18 AM CDT): Chronic. Stable. Continue medication and care per Rheumatology. She will be transitioning to water pollution control technician within our system as the [facility] water pollution control technician is no longer with the practice Assessment & Plan (04/01/2023 10:45 AM CHIP BIN CONVEYOR TENDER): Patient reports was a very mild case [...] loss Assessment & Plan (04/01/2023 10:45 AM CHIP BIN CONVEYOR TENDER): Chronic. Suboptimally controlled. Has been working on diet, exercise and weight loss. Was seen better weight loss benefit with Mounjaro but had to be switch to Ozempic due to insurance change. We will see if she can tolerate a slightly higher dose of Ozempic for added benefit for the obesity as well as the diabetes. We did certified lactation counselor side effects and use. If develops significant intolerance she will need to let us know we will go back down on the dose Immunizations Immunization Administration Dates Next Due Influenza, Quadrivalent, Split, Intramuscular Influenza, Quadrivalent, Spl it, Preservative Free, Intramuscular 12/23/2022 Influenza, Trivalent, Adjuvanted, Intramuscular 01/17/2024 Influenza, Unspecified 01/17/2024,12/23/2022 Pneumococcal Conjugate Pcv20 09/30/2023 Pneumococcal Polysaccharide PPV23 11/20/2020 Sars-CoV-2, Unspecified 11/27/2023 Tdap 03/24/2017 Social History Tobacco Use Types Packs/Day Years [...] on file Legal Sex Female 1:00 AM CHIP BIN CONVEYOR TENDER Gender Identity Female 04/19/2020 10:14 AM CHIP BIN CONVEYOR TENDER Sexual Orientation Straight 04/19/2020 10 :14 AM CHIP BIN CONVEYOR TENDER Last Filed Vital Signs Vital Sign Reading Time Taken Comments Blood Pressure 112/75 06/03/2024 1:40 PM CDT Pulse 80 06/03/2024 1:40 PM CDT Temperature 36.6 C (97.8 F) 05/13/2024 2:52 PM CHIP BIN CONVEYOR TENDER Respiratory Rate 18 05/13/2024 7:24 AM CHIP BIN CONVEYOR TENDER Oxygen Saturation 98% 06/03/2024 1:40 PM CDT Inhaled Oxygen Concentration - - Weight 125.1 kg (275 lb 11.2 oz) 06/03/2024 1:40 PM CDT Height 162.6 cm (5' 4) 06/03/2024 1:40 PM CDT Body Mass Index 47.32 06/03/2024 1:40 PM CDT Plan of Treatment Not on file Procedures Procedure Name Priority Date/Time Associated Diagnosis Comments US RUQ Schedule Routine, Read Routine (OP Routine) 07/17/2024 9:53 AM CDT Liver fibrosis NE ARTHROCENTESIS ASPIR&/INJ MAJOR JT/BURSA W/O US Routine [...] Routine 06/03/2024 2:24 PM CDT Liver fibrosis [id number], TUMOR MARKER Routine 06/03/2024 2:24 PM CDT Liver fibrosis MAGNESIUM Routine 06/03/2024 2:24 PM CDT Heartburn VITAMIN B12 Routine 06/03/2024 2:24 PM CDT Heartburn VITAMIN D 25 HYDROXY Routine 06/03/2024 2:24 PM CDT Heartburn SCREENING MAMMOGRAM BILATERAL W SCOOTER Schedule Routine, Read Routine (OP Routine) 05/22/2024 1:55 PM CHIP BIN CONVEYOR TENDER Screening mammogram, encounter for HEMOGLOBIN A1C Routine 05/10/2024 7:21 AM CHIP BIN CONVEYOR TENDER Type 2 diabetes mellitus with hyperlipidemia (HCC) HEPATITIS C ANTIBODY Routine 02/17/2024 2:19 PM CHIP BIN CONVEYOR TENDER Pain in other joint Positive NOLA (antinuclear antibody) Elevated rheumatoid factor Chronic pain of both knees ALBUMIN CREATININE RATIO, URINE Routine 02/05/2024 12:17 PM CHIP BIN CONVEYOR TENDER Type 2 diabetes mellitus with hyperglycemia, without [...] of 45.0 to 49.9 in adult (HCC) HM DIABETES EYE EXAM Routine 06/14/2023 HM PAP SMEAR WITH HPV Routine 05/15/2022 HM COLONOSCOPY Routine 04/09/2022 3:50 PM CHIP BIN CONVEYOR TENDER from Last 3 Months or Most Recently [...] stone is noted as per the performing sales expert. No pericholecystic fluid. Negative sonographic Sidhu sign as per performing sales expert. BILIARY: Normal common bile duct measures 3 mm in diameter. RIGHT KIDNEY: Normal in size. Measures 10.3 cm. No hydronephrosis IMPRESSION: 1. Borderline hepatic steatosis. 2. Cholelithiasis without sonographic evidence of acute cholecystitis. THIS IS AN ELECTRONICALLY VERIFIED FINAL REPORT 07/19/2024 7:30 AM - Electronically signed by Chito Washburn M.D. AG: DO Report ID: [id number] Reading Location: [id number] Procedure Note Chito Washburn MD - 07/19/2024 [...] mobile stone isnoted as per the performing sales expert. No pericholecystic fluid. Negative sonographic Sidhu sign as per performing sales expert. BILIARY: Normal common bile duct measures 3 mm in diameter. RIGHT KIDNEY: Normal in size. Measures 10.3 cm. No hydronephrosis IMPRESSION: 1. Borderline hepatic steatosis. 2. Cholelithiasis without sonographic evidence of acute cholecystitis. THIS IS AN ELECTRONICALLY VERIFIED FINAL REPORT 07/19/2024 7:30 AM - Electronically signed by Chito Washburn M.D. AG: DO Report ID: [id number] Reading Location: [id number] Silvia THOMAS IMG US PROCEDURES Final Result * NE ARTHROCENTESIS ASPIR&/INJ MAJOR JT/BURSA W/O US (06/23/2024 3:15 PM CDT) Narrative tSanley Snider PA - 06/23/2024 3:15 PM CDT [...] the procedure well with no immediate complications Stanley THOMAS IN CLINIC/BEDSIDE [facility] Final Result [...] Pancreatic elastase, stool (06/08/2024 8:00 PM CDT) Pathologist [facility] Pancreatic elastase, stool <40(L) >200 (Normal) mcg/g [facility] Comment: Interpretation: Abnormal (<100 mcg/g); Consistent with pancreatic insufficiency Test Performed by: [place] [address] Chuck Splitter: Brandi Green Ph.D.; IA# [id number] Stool 06/08/2024 8:00 PM CDT 06/09/2024 10:40 AM CDT Silvia THOMAS LAB BODY FLUIDS AND STOO LS ORDERABLES Final Result [facility] 1 [facility] Department of Laboratories [place], [place] [id number] [facility] * (ABNORMAL) Fibro Test-Acti Test (06/03/2024 2:24 PM CDT) FibroTest Score 0.05 [facility] FibroTest Stage F0 [facility] ([place]) FibroTest Interpretation no fibrosis [facility] [place] Comment: FibroTest estimates liver fibrosis FibroTest Score [...] A3 severe activity FibroTest-ActiTest Comment See Comment [facility] ([place]) Comment: The reliability of results is dependent on compliance with the preanalytical and analytical conditions recommended by [employer] [place]. The tests have to be deferred for: [...] developed and its performance characteristics determined by [facility] in a manner consistent with CLIA requirements. This test has not been cleared or approved by the U.S. Food and Drug Administration. [employer] Serial Number [id number] [facility] ([place]) APOLIPOPROTEIN A1 113(L) >=140 mg/dL [facility] ([place]) Qmxeq-0-Jocplmwzhjleq, Ser 161 100 - 280 mg/dL [facility] [place] Haptoglobin, S 242(H) 30 - 200 mg/dL [facility]) Alanine Aminotransferase (ALT), S 19 7 - 45 Units/L [facility]) Gamma Glutamyltransferase (GGT), S 17 5 - 36 Units/L [facility]) Bilirubin, Total, S 0.2 0.0 - 1.2 mg/dL [facility] ([place]) Comment: Test Performed by: [facility] [address] [place] [address] Chuck Splitter: Brandi Green Ph.D.; CLIA# [id number] Test Performed by: [facility] [address] [place] [address] Chuck Splitter: Brandi Green Ph.D.; CLIA# [id number] Blood 06/03/2024 2:24 PM CDT 06/03/2024 3:53 PM CDT us Silvia THOMAS LAB BLOOD ORDERABLES Fin al Result [facility] ([place]) 1 [facility] Department [place] [address] [facility] * eGFR (06/03/2024 2:24 PM [...] BLOOD ORDERABLES Fin al Result [facility] ([place] 1 [facility] Department [place] [address] * Differential, auto (06/03/2024 2:24 PM CDT) Neutrophil abs 5.1 1.5 - 6.5 K/cumm Imm gran abs 0.0 0.0 - 0.1 K/cumm [facility] ([place]) Lymphocyte abs 1.7 0.8 - 3.3 K/cumm [facility] ([place]) Monocyte abs 0.5 0.2 - 0.8 K/cumm [facility]) Eosinophil abs 0.1 0.0 - 0.5 K/cumm [facility] ([place]) Basophil abs 0.1 0.0 - 0.1 K/cumm [facility]) Neutrophil pct 68.5 % [facility] ([place]) Comment: Interpretive Data Percent cell count reference ranges are not reported, since discordance with absolute values may lead to misinterpretation of CBC data. Current Interpretive Data was last revised on 2017. Imm gran pct 0.3 % [facility] Comment: Interpretive Data Percent cell count reference ranges are not reported, since discordance with absolute values may lead to misinterpretation of CBC data. Current Interpretive Data was last revised on 2017. Lymphocyte pct 22.7 % [facility] Comment: Interpretive Data Percent cell count reference ranges are not reported, since discordance with absolute values may lead to misinterpretation of CBC data. Current Interpretive Data was last revised on 2017. Monocyte pct 6.8 % [facility] Comment: Interpretive Data Percent cell count reference ranges are not reported, since discordance with absolute values may lead to misinterpretation of CBC data. Current Interpretive Data was last revised on 2017. Eosinophil pct 0.9 % [facility] ([place]) Comment: Interpretive Data Percent cell [...] Fin al Result [facility] ([place]) 1 [facility] Department [place] [address] * (ABNORMAL) CBC with auto differential (06/03/2024 [...] ([place]) MCHC 32.8 32.3 - 35.7 g/dL [facility]) RDW CV 14.3 11.1 - 14.9 % [facility]) RDW SD 44.4 35.7 - 48.1 fL [facility]) NRBC abs 0.00 0.00 - 0.01 K/cumm [facility]) Blood 06/03/2024 2:24 PM CDT 06/03/2024 3:53 PM CDT us Silvia THOMAS LAB BLOOD ORDERABLES Fin al Result [facility] ([place]) 1 [facility] Department [place] [address] * Qvfjg-5-Jecrolfcrkt, Tumor Marker (06/03/2024 2:24 PM CDT) alpha [...] ng/ml >1 year 0.0 8.3 ng/ml References Tskdaeem Y. et al. J. Ped Surg 1978;13:155-156 Gilbert Lieberman. et al. Clin Chem Lab Med 2018;57:783-797 Remigio Gallego et al. Clin Chem 2014;0866-8970. Current interpretive data was last revised 2021. Testing performed by: [facility], 1 [place] [address] Blood 06/03/2024 2:24 PM CDT 06/03/2024 8:01 PM CDT us Silvia THOMAS LAB BLOOD ORDERABLES Fin al Result [facility] ([place] 1 [facility] [place] [address] * (ABNORMAL) Vitamin D 25 hydroxy (06/03/2024 2:24 PM CDT) Vitamin D 25-OH 15(L) 30 - 80 ng/mL Blood 06/03/2024 2:24 PM CDT 06/03/2024 3:53 PM CDT Silvia THOMAS LAB BLOOD ORDERABLES Fin al Result Performing Organization Address [facility] Co de Phone Number [facility] ([place] 1 [facility] [place] [address] * Magnesium (06/03/2024 2:24 PM CDT) Magnesium 2.3 1.4 - 2.5 mg/dL Blood 06/03/2024 2:24 PM CDT 06/03/2024 3:53 PM CDT Silvia THOMAS LAB BLOOD ORDERABLES Fin al Result Performing Organization Address [facility] Co de Phone Number [facility] 1 [facility] [place] [address] * Vitamin B12 (06/03/2024 2:24 PM CDT) Vitamin B12 275 230 - 1,250 pg/mL Blood 06/03/2024 2:24 PM CDT 06/03/2024 3:53 PM CDT Silvia THOMAS LAB BLOOD ORDERABLES Fin al Result [facility] ([place] 1 [facility] [place] [address] * Comprehensive metabolic panel (06/03/2024 2:24 PM CDT) Sodium 139 135 - 145 mmol/L Potassium, pl 3.9 3.3 - 4.9 mmol/L [facility] Chloride 105 97 - 110 mmol/L [facility] CO2 25 22 - 32 mmol/L [facility] Anion gap 10 2 - 15 mmol/L [facility]) BUN 12 6 - 25 mg/dL [facility]) Creatinine 0.96 0.60 - 1.10 mg/dL [...] THOMAS LAB BLOOD ORDERABLES Fin al Result [facility] ([place]) 1 [facility] Department [place] [address] * Screening Mammogram Bilateral W Scooter (05/22/2024 1:55 PM CHIP BIN CONVEYOR TENDER) Anatomical Region Laterality Modality Breast Bilateral Mammography 05/23/2024 9:37 PM CHIP BIN CONVEYOR TENDER Impressions 05/23/2024 9:37 PM CHIP BIN CONVEYOR TENDER There is no mammographic evidence to suggest malignancy. The patient may continue screening mammography as per ACR guidelines. FINAL ASSESSMENT: BI-RADS Category 1: Negative. Electronically signed by: Kathai Duncan M.D. Narrative 05/23/2024 9:37 PM CHIP BIN CONVEYOR TENDER EXAMINATION: BILATERAL SCREENING MAMMOGRAM WITH TOMOGRAPHY HISTORY: [...] Result * Hemoglobin A1c (05/10/2024 7:21 AM CHIP BIN CONVEYOR TENDER) Hgb A1C 5.3 4.0 - 5.6 % Estimated Average Glucose 105 mg/dL [facility] ([place]) Comment: The ADA recommends reporting an estimated Average Glucose (eAG) with all Hemoglobin A1c results using the equation derived from a study of 507 normal and diabetic adults. Minority populations were underrepresented and children were not included. (Diabetes Care 31:5224-8797, 2008). The eAG is not equivalent to a fasting glucose. Blood 05/10/2024 7:21 AM CHIP BIN CONVEYOR TENDER 05/10/2024 10:40 AM CHIP BIN CONVEYOR TENDER Suresh Child MD LAB BLOOD ORDERABLE S Final Result [facility] ([place]) 1 [facility] Department [place] [address] * Hepatitis C antibody Blood (02/17/2024 2:19 PM CHIP BIN CONVEYOR TENDER) Hep C Ab Nonreactive Nonreactive Comment: Interpretive [...] revised on 2019. Blood 02/17/2024 2:19 PM CHIP BIN CONVEYOR TENDER 02/17/2024 7:28 PM CHIP BIN CONVEYOR TENDER us Analia Ambriz MD LAB MICROBIOLOGY - GENERAL ORDERABLES Final Result [facility] [address] Department [place] [address] * Albumin Creatinine Ratio, Urine (02/05/2024 12:17 PM CHIP BIN CONVEYOR TENDER) Pathologist [facility] Albumin Ur 22.1 mg/L Comment: Interpretive Data No reference range established. Current interpretive data was last revised 2018. Testing performed by: [address] [address] Creatinine Ur 254.3 mg/dL [facility] ([place]) Comment: Interpretive Data No reference range established. Current interpretive data was last revised 2018. Testing performed by: [address] [address] Albumin Creatinine Ratio, Ur 9 1 - 29 mg/g [facility] ([place]) Comment:Testing performed by : [address] [address] Urine 02/05/2024 12:1 7 PM CHIP BIN CONVEYOR TENDER 02/05/2024 6:05 PM CHIP BIN CONVEYOR TENDER us Suresh Child MD LAB URINE ORDERABLE S Final Result [facility] ([place]) 1 [facility] Department [place] [address] * (ABNORMAL) Lipid panel (09/23/2023 7:26 AM [...] on 2017. Chol/HDL ratio 7 [facility] ([place]) Blood 09/23/2023 7:26 AM CDT 09/23/2023 10:30 AM CDT Azra Nieves MD LAB BLOOD ORDERABLES F inal Result [facility] ([place]) 1 [facility] Department of Laboratories [place], [place] [id number] * DIABETES EYE EXAM (06/14/2023) SCRIBED DIABETIC DILATED EYE EXAM Normal Historical Provider HEALTH MAINTENANCE Final Result * PAP SMEAR WITH HPV (05/15/2022) Scribed Pap Smear w/HPV Normal Comment:see care everywhere Historical Provider HEALTH MAINTENANCE Final Result * HM COLONOSCOPY (04/09/2022 3:50 PM CHIP BIN CONVEYOR TENDER) Historical Provider HEALTH MAINTENANCE Final Result from Last 3 Months or Most Recently Relevant to Health Maintenance Insurance [employer] [employer] Address: [facility] [id number] [place] [phone] [employer] [employer] [employer] Address: [facility] [address] [place] [address] Care Teams School Community Relations Coordinator Relationship Specialty Start Date End Date Suresh Child MD [address] [facility] [address] [place] [address] PCP - General Family Practice 02/04/24 [place] [address] [place] [address] Physician Seismograph Shooter 12/23/19 Raji Spears MD [address] [facility] [address] [place] [address] Consulting Physician Rheumatology 04/01/23 Altaf Prasad MD [address] [place] [address] Referring Physician Obstetrics and Gynecology 04/01/23
--- OUTSIDE RECORDS SUMMARY | 2024-08-19 14:29 | XMS_ITS | Clinical Summary ---
Author Organization [facility] [employer] Address [address] [place] [address] Care Team Providers Care Electronics Repair Technician Name Role Phone Ayla Salazar PA-C Primary Care Provider + Source Comments [facility] [employer],non-owned Affiliates and Associated Physician Practices is amultiple site organization consisting of ambulatory clinics and hospital sitesin [place], [place], [place] and [place]. This disclosure is being madepursuant to the Care Everywhere program and may not contain all information available regarding this patient. Last updated 17.[facility] [employer] Allergies No known active allergies Medications * Be aware that medications may not be up to date on this document. Alwaysverify current medications with the patient. venlafaxine XR 24hr (EFFEXOR XR) 75 MG capsule TAKE 1 CAPSULE(S) EVERY DAY BY ORAL ROUTE DIRECTED 0 Active metoprolol succinate XL 24hr (TOPROL XL) 50 MG tablet TAKE ONE TABLET TWICE DAILY IF SYMPTOMATIC. OTHERWISE TAKE ONE TABLET DAILY. 0 Active omeprazole (PRILOSEC) 40 MG capsule Take 1 capsule every day by oral route before meals for 30 days. Active Pancrelipase, [id number], (CREON PO) Active Multiple Vitamins-Minera ls (MULTIVITAMIN ADULT EXTRA C PO) Active Active Problems Problem Noted Date Diagnosed Date Liver fibrosis 07/26/2020 NAFLD (nonalcoholic fatty liver disease) 021 Cirrhosis of liver without ascites 07/26/2020 Diverticulosis of colon 07/26/2020 Gastroesophageal reflux disease 07/26/2020 Pancreatic insufficiency 07/26/2020 Rheumatoid arthritis 07/26/2020 Scleroderma 07/26/2020 Obesity 07/26/2020 Resolved Problems Problem Noted Date Diagnosed Date Resolved Date Constipation 07/26/2020 08/23/2020 Social History Tobacco Use Types Packs/Day Years Used Date Smoking Tobacco: Never Smokeless Tobacco: Never Alcohol Use Standard Drinks/Week Comments Never 0 (1 standard drink = 0.6 oz pur e alcohol) Comments No Sex and Gender Information Value Date Recorded Sex Assigned at Not on file Legal Sex Female 3:07 PM CDT Gender Identity Female 07/26/2020 11:05 AM CDT Sexual Orientation Not on file Last Filed Vital Signs Vital Sign Reading Time Taken Comments Blood Pressure 153/79 08/15/2020 4:00 PM CDT Pulse 93 08/15/2020 11:34 AM CDT Temperature 37.2 C (99 F) 08/15/2020 11:34 AM CDT Respiratory Rate 16 08/15/2020 11:34 AM CDT Oxygen Saturation 98% 08/15/2020 4:00 PM CDT Inhaled Oxygen Concentration - - Weight 145.6 kg (321 lb) 08/15/2020 11:34 AM CDT Height 162.6 cm (5' 4) 08/15/2020 11:34 AM CDT Body Mass Index 55.1 08/15/2020 11:34 AM CDT Plan of Treatment Health Maintenance Due Date Last Done Comments COLOGUARD (AGES 45-75) - COL ON CA SCREENING 1978 COLON MONITORING 1978 COLONOSCOPY - COLON CA SCREENING 1978 CT COLONOGRAPHY - COLON CA SCREENING 1978 Colorectal Cancer Screening 1978 FIT - COLON CA SCREENING 1978 FLEX SIG - COLON CA SCREENING 1978 LIPID TESTING 1978 MAMMOGRAM 1978 PAP SMEAR 1978 HIV SCREENING 1993 HEPATITIS C SCREENING 03/08/1996 DTAP/TDAP/TD VACCINES (1 - Tdap) 1997 HEPATITIS B VACCINE (1 of 3 - 19+ 3-dose series) 1997 PNEUMOCOCCAL VACCINE (1 of 2 - PCV) 1997 SCREENING FOR DIABETES 08/16/2023 08/15/2020 COVID-19 VACCINE (1 - 2023-2 5 season) 2023 DEPRESSION SCREENING 03/24/2024 INFLUENZA VACCINE (Season Ended) 2024 11/30/19 17 ZOSTER VACCINE (1 of 2) 2028 HIB VACCINE Aged Out No longer eligi ble based on patient's age to complete this topic HPV VACCINE Aged Out No longer eligi ble based on patient's age to complete this topic MENINGOCOCCAL (Group B) VACC INE SHARED DECISION-MAKING Aged Out No longer eligibl e based on patient's age to complete this topic MENINGOCOCCAL GROUPS A/C/Y/W VACCINE Aged Out No longer eligible b ased on patient's age to complete this topic Procedures Procedure Name Priority Date/Time Associated Diagnosis Comments COMPREHENSIVE METABOLIC PANEL STAT 08/15/2020 2:10 PM CDT from Last 3 Months or Most Recently Relevant to Health Maintenance Results * (ABNORMAL) COMPREHENSIVE METABOLIC PANEL (08/15/2020 2:10 PM CDT) Glucose 121(H) 70 - 105 mg/dL 08/15/2020 2:32 PM CDT [facility] Sodium 137 136 - 145 mmol/L 08/15/2020 2:32 PM CDT [facility] Potassium 3.8 3.5 - 5.1 mmol/L 08/15/2020 2:32 PM CDT [facility] Chloride 101 98 - 107 mmol/L 08/15/2020 2:32 PM CDT [facility] CO2 25 23 - 31 mmol/L 08/15/2020 2:32 PM CDT [facility] Calcium 9.2 8.4 - 10.4 mg/dL 08/15/2020 2:32 PM CDT [facility] Anion Gap 11 8 - 18 mmol/L 08/15/2020 2:32 PM CDT [facility] BUN 9 7 - 18.7 mg/dL 08/15/2020 2:32 PM CDT [facility] Creatinine 0.97 0.57 - 1.11 mg/dL 08/15/2020 2:32 PM CDT [facility] Alkaline Phosphatase 98 40 - 150 U/L 08/15/2020 2:32 PM CDT [facility] ALT 20 0 - 61 U/L 08/15/2020 2:32 PM CDT [facility] AST 21 5 - 34 U/L 08/15/2020 2:32 PM CDT [facility] Protein Total 8.1 6.4 - 8.3 gm/dL 08/15/2020 2:32 PM CDT [facility] Albumin 4.0 3.5 - 5.2 gm/dL 08/15/2020 2:32 PM CDT [facility] Bilirubin Total 0.9 0.2 - 1.2 mg/dL 08/15/2020 2:32 PM CDT [facility] eGFR by MDRD >60 >60 mL/min/1.7 3m2 08/15/2020 2:32 PM CDT [facility] eGFR by MDRD >60 >60 mL/min/1.7 3m2 08/15/2020 2:32 PM CDT [facility] Blood BLOOD SPECIMEN / Unknown Venipuncture / Unknown 08/15/2020 2:10 PM CDT 08/15/2020 2:10 PM CDT Grady Burnham PA-C LAB - CHEMISTRY OR DERABLES Final Result Performing Organization Address City/State/[facility] Co de Phone Number [facility] [address] [place] [address] from Last 3 Months or Most Recently Relevant to Health Maintenance Insurance [employer] SELF PAY NO INSURANCE Member Subscriber Plan / Payer (Ef fective for All Dates) Name:Radha Dill Member ID:Not on file Relation to Subscriber:Not on file Name:RADHA DILL Subscriber ID:Not on file Address: [address] [place] [phone] Payer ID:Not on file Group ID:Not on file Type:Self Pay Address: [place], [place] CIGNA SELF PAY NO INSURANCE Member Subscriber Plan / Payer (Ef fective for All Dates) Name:Radha Dill Member ID:Not on file Relation to Subscriber:Not on file Name:RADHA DILL Subscriber ID:Not on file Address: [address] [place] [phone] Payer ID:Not on file Group ID:Not on file Type:Self Pay Address: [place], [place] CIGNA SELF PAY NO INSURANCE Member Subscriber Plan / Payer (Ef fective for All Dates) Name:Radha Dill Jodie Member ID:Not on file Relation to Subscriber:Not on file Name:RADHA DILL Subscriber ID:Not on file Address: [address] [place] [phone] Payer ID:Not on file Group ID:Not on file Type:Self Pay Address: [place], [place] Care Teams Electronics Repair Technician Relationship Specialty Start Date End Date Ayla Salazar PA-C [address] [place] [phone] PCP - General 07/12/20
--- OUTSIDE RECORDS SUMMARY | 2024-08-19 14:29 | XMS_ITS | Clinical Summary ---
Author Organization [facility] Address [address], [address] [address] Phone Care Team Providers Care Community Aide Name Role Phone Fantasma Mckeon Primary Care Provider [phone] Allergies No known active allergies Medications metoprolol Succinate (TOPROL-XL) 50 MG TABLET SR 24 HR Take 50 mg by mouth daily. 3 11/28/2016 Active omeprazole (PRILOSEC) 20 MG CAPSULE DELAYED RELEASE Take 20 mg by mouth daily. 2 11/14/2016 Active venlafaxine (EFFEXOR-XR) 150 MG CAPSULE SR 24 HR Take 150 mg by mouth daily. 3 11/21/2016 Active Active Problems Problem Noted Date Diagnosed Date Hepatic steatosis 04/14/2020 Immunizations Immunization Administration Dates Next Due Influenza, Injectable, Quadrivalent 11/29/2016 Family History Medical History Relation Name Comments High Cholesterol Father Heart Disease Maternal Grandfather Heart Disease Maternal Grandmother Diabetes Mother Hypertension Mother Heart Disease Paternal Grandfather Heart Disease Paternal Grandmother Heart Disease Paternal Uncle Relation Name Status Comments Father Alive Maternal Grandfather Maternal Grandmother Mother Paternal Grandfather Paternal Grandmother Paternal Uncle Social History Tobacco Use Types Packs/Day Years Used Date Smoking Tobacco: Never Smokeless Tobacco: Never Tobacco Cessation:Counseling Given: No Alcohol Use Standard Drinks/Week Comments No 0 (1 standard drink = 0.6 oz pur e alcohol) Sexually Active Control Partners Comments Not Currently Comments No Sex and Gender Information Value Date Recorded Sex Assigned at Not on file Legal Sex Female 10:58 PM CDT Gender Identity Not on file Sexual Orientation Not on file Last Filed Vital Signs Vital Sign Reading Time Taken Comments Blood Pressure 140/76 04/14/2020 2:25 PM FRUIT CANNER Pulse 79 04/14/2020 2:25 PM FRUIT CANNER Temperature 36.5 C (97.7 F) 04/14/2020 2:25 PM FRUIT CANNER Respiratory Rate 22 04/14/2020 2:25 PM FRUIT CANNER Oxygen Saturation 98% 04/14/2020 2:25 PM FRUIT CANNER Inhaled Oxygen Concentration - - Weight 149.2 kg (329 lb) 04/14/2020 2:25 PM FRUIT CANNER Height 160 cm (5' 3) 04/14/2020 2:25 PM FRUIT CANNER Body Mass Index 58.28 04/14/2020 2:25 PM FRUIT CANNER Plan of Treatment Health Maintenance Due Date Last Done Comments Hepatitis C Virus (HCV) Screening 1978 TdaP Immunization 1978 Hepatitis B Immunization (1 of 3 - 19+ 3-dose series) 1997 Influenza Immunization (#1) 2023 11/29/2016 SARS-COV-2 Immunization ( season) 2023 12/06/2020, 03/31/2020, 03/10/2020 Colonoscopy 02/17/2027 02/17/2017 Colorectal Cancer Screening 02/17/2027 Respiratory Syncytial Virus (RSV) Immunization (Adult) (1 - 1-dose 75+ series) 2053 02/17/2017 Meningococcal Immunization (ACWY) Aged Out No longer eligible b ased on patient's age to complete this topic Pneumococcal Immunization Combined Aged Out No longer eligible b ased on patient's age to complete this topic Rotavirus Immunization Aged Out No lo nger eligible based on patient's age to complete this topic Insurance OAP Care Teams Community Aide Relationship Specialty [place] [address] [place] [id number] PCP - General Physician [employer] 12/17/16
--- NOTE | 2024-08-19 14:42 | ECG_ITS ---
Test Date: 2024-08-19 15:02:21 Measurements Intervals [place] Rate: 75 P: 50 ME: 172 QRS: 18 QRSD: 90 T: 30 QT: 379 QTc: 424 Interpretive Statements SINUS RHYTHM No previous ECG available for comparison Electronically Signed On 08-20-2024 11:07:43 CDT by Theresa Aleman M.D.
[2024-08-19 15:09] LABS: Hematocrit 43.8 % (37.0-47.0); Hemoglobin 14.5 g/dL (12.0-15.0)
[2024-08-19 15:19] LABS: Alanine Aminotransferase 17 U/L (6-35); Albumin Level 4.2 g/dL (3.5-5.1); Alkaline Phosphatase 63 U/L (38-126); Anion Gap 8 mmol/L (4-12); Aspartate Amino Transferase 25 U/L (14-36); Bilirubin,Total 0.3 mg/dL (0.2-1.3); Blood Urea Nitrogen 10 mg/dL (7-17); Calcium 9.6 mg/dL (8.4-10.2); Carbon Dioxide 26 mmol/L (22-30); Chloride 103 mmol/L (98-107); Estimated Glomerular Filt Rate > 60; Glucose 88 mg/dL (65-110); Potassium 3.7 mmol/L (3.4-5.0); Sodium 137 mmol/L (137-145)
== END 2024-08-19 14:26 | disposition home or self-care (01) ==
PROVIDERS: Anesthesiology; Visit Provider Obstetrics & Gynecology
DX: N92.0 Excessive and frequent menstruation with regular cycle (principal); R00.0 Tachycardia, unspecified; D64.9 Anemia, unspecified
CPT/HCPCS: 36415; 80053; 85014; 85018; 86850; 86900; 86901; 93005

== ENCOUNTER 2024-08-25 00:37 | Day surgery (SDC) | payer OTHER, SELFPAY ==
--- NOTE | 2024-08-19 10:27 | SUR.PREOP ---
Report to the Outpatient Waiting Room, entrance under the green pavilion located off [facility], at time ___09____ on date ___08/25/24____. Planned Procedure Time: ___1130 .? Time changes happen often and if your time is changed the preop area will call you the afternoon before. - You and your visitor will be asked to self-screen and do not enter if you have any COVID symptoms. Please call surgeon if you need to reschedule. - A mask is optional within the hospital at this time. Patients may have clear liquids (water, carbonated beverages, clear teas, apple juice) until 3 hours prior to surgery with a maximum of 20 ounces. - NO CLEAR LIQUIDS AFTER 0830 - No food from midnight until time of surgery and no smoking, or chewing tobacco (or any form of nicotine). No chewing gum, candy or mints. - Infants may have breast milk until 4 hours before surgery, formula 6 hours prior to surgery. - Children will be allowed to drink immediately following surgery.? If applicable, please bring a bottle or sippy cup to assist with drinking. Juice, water, soda, and popsicles are readily available.? For infants on formula, please bring formula the day of surgery.? Pacifiers are allowed. Take only the following medications with a SIP of water on the morning of surgery: METOPROLOL, VENLAFAXINE, ESTRADIOL, TOPIRAMATE DO NOT STOP ANY OF YOUR OTHER PRESCRIPTION MEDICATIONS PRIOR TO SURGERY EXCEPT THE FOLLOWING Hold all vitamins and supplements for 3 days per anesthesiologist. Medications to discontinue per physician N/A Date to take last dose Please no make-up, nail italian, hairspray, perfume, deodorant, or body powder the day of surgery.? No jewelry (including any body piercings) or valuables the day of surgery, leave them at home.? Please take a shower or bath the night before, or the morning of, surgery with an antibacterial soap.? Wear comfortable, loose fitting clothing.? Children are encouraged to wear pajamas. - Jewelry must be removed prior to entering the operating room.? Rings and piercings that are not removed may be cut off. - The hospital will not accept responsibility for valuables.? - Please leave all valuables, including medications, at home the day of surgery. If you are going home after surgery, a licensed front load trash truck driver must drive you home.? - NO public transportation without another adult if you receive anesthesia. - We recommend that an adult stay with you for 24 hours following discharge. - We also recommend that you do not drive, make important decision, drink alcoholic beverages, or take any drugs that were not prescribed by your health care provider for at least 24 hours after your discharge time. For Pediatric surgeries, we recommend two adults accompany the child home. Follow any additional instructions given to you from your surgeon. Telephone instructions given to ____KEAGAN JUAREZ and asked if any additional questions and then verbalized understanding. Patient advised to call surgeon office or pre surgery nurse liaison [phone] if any additional questions.
[2024-08-19 10:43] VITALS: BMI 45.6
[2024-08-25] VITALS (13 sets, daily range): BP systolic 106–148; BP diastolic 51–96; PULSE 78–92; RESP 14–24; TEMP 36.3–36.9; O2SAT 94–100; BMI 45.8
--- OUTSIDE RECORDS SUMMARY | 2024-08-25 00:39 | XMS_ITS | Encounter Summary ---
Author Organization [facility] Address [address] [place] [address] Care Team Providers Care Director Of Accounts Payable Name Role Phone Ayla Salazar Unavailable Raji Spears MD Unavailable [phone] Altaf Prasad MD Unavailable [phone] Suresh Child MD Primary Care Provi jonelle Encounter Details Date Type Department Care Team (Late st Contact Info) Description 07/20/2024 Results Follow-Up [facility] Gastroenterology at [address] [place] [address] Silvia Cannon PA [address] [place] [address] [address] [place] [address] RUQ Ultrasound Social History Tobacco Use Types [...] on file Legal Sex Female 1:00 AM ELECTRICAL AND INSTRUMENTATION MECHANIC Gender Identity Female 04/19/2020 10:14 AM ELECTRICAL AND INSTRUMENTATION MECHANIC Sexual Orientation Straight 04/19/2020 10 :14 AM ELECTRICAL AND INSTRUMENTATION MECHANIC documented as of this encounter Plan of Treatment Not on file documented as of this encounter Visit Diagnoses Not on filedocumented in this encounter Care Teams Director Of Accounts Payable Relationship Specialty Start Date End Date Suresh Child MD [address] [facility] [address] [place] [address] PCP - General Family Practice 02/04/24 Ayla Salazar PA [address] [place] [id number] Physician Statistical Machine Mechanic 12/23/19 Raji Spears MD [address] [address] Consulting Physician Rheumatology 04/01/23 Altaf Prasad MD [address] [place] [address] Referring Physician Obstetrics and Gynecology 04/01/23 documented as of this encounter
--- OUTSIDE RECORDS SUMMARY | 2024-08-25 00:40 | XMS_ITS | Data Portability ---
Author Organization [facility] Address [address] [place] [address] Care Team Providers Care Substance Abuse Counselor Name Role Phone AZRA AHN Primary Care Provider Assessment Encounter Date Assessment Date Assessment LastModified by Organization Details LastModified Time 06/07/2024 06/07/2024 Annual gynecological exam performed. Patient will come back in a year unless there are new symptoms. [email or web address] Not available 06/07/2024 09:06:25 Plan of Treatment Reminders Order Date Submit Date Provider Last Modified By Organization Details Last Modified Time Details Appointments Robotic TLH 2024 11:30A Cecil PRASAD MD Not available Not available Not available SURG POST OP 2024 01:00P Cecil PRASAD MD Not available Not available Not available Lab hormone panel, serum or plasma 2024 025 [facility] (Lab), [address], [place], [address], 06/30/2024 04:31:15 pap, IG + HR HPV - HPV regardles s but if HPV is positive need subtyping 16,18/45 2024 025 [facility] (Lab), [address], [place], [address], 06/10/2024 14:06:36 dhea-sulf ate, serum 2024 025 [facility] (Lab), [address], [place], [address], 06/13/2024 13:24:23 hormone panel, serum or plasma 2024 025 [facility] (Lab), [address] [facility], [place], [address], 06/13/2024 13:24:23 progester one, serum 2024 025 [facility] (Lab), [address] [facility], [place], [address], 06/13/2024 13:24:23 prolactin , serum 2024 025 [facility] (Lab), [address] [facility], [place], [address], 06/13/2024 13:24:22 shbg (sex hormone-b inding globulin) , serum 2024 025 [facility] (Lab), [address] [facility], [place], [address], 06/13/2024 13:24:22 TSH, serum or plasma 2024 025 [facility] (Lab), [address] [facility], [place], [address], 06/13/2024 13:24:22 testoster one free/test osterone total, ratio, serum 2024 025 [facility] (Lab), [address] [facility], [place], [address], 06/13/2024 13:24:23 Referral None recorded. Procedures None recorded. Surgeries robotic assisted hysterect joe w/bilater al salpingo- oophorect joe (SURG) 2024 025 [facility], [facility] [address], [address], 08/11/2024 13:11:12 Imaging US, pelvis 2024 025 [email or web address] [address], [address], [place], [address], 06/18/2024 21:06:13 US, transvagi nal 2024 025 [email or web address] [address], [address], [place], [address], 06/18/2024 21:06:13 US, pelvis, complete 2024 025 [email or web address] [address], [address], [place], [address], 07/18/2024 11:40:58 Medication Orders Eulalia 0.35 mg tablet 2024 025 [id number], [address], [place], [place], [id number], 08/11/2024 16:49:42 Patient TargetsNo targets recorded. Patient [...] NOTE: The Pap Test is a scree shanann test with an inher ent false negat [...] as clini marv warra nted. Not Available [facility] (Lab) [address] [facility], [place], [address], 06/10/2024 14:06:36 06/08/19 25 06/07/2024 HUMAN SEX HORMO NE SHERIN NG GLOBU PADMINI sex hormone binding globulin 28.9 nmole s/L 18.2-1 35.5 Not Available [facility] (Lab) [address] [facility], [place], [address], 06/13/2024 13:24:21 06/08/19 25 06/07/2024 TSH, REFLE X FREE T4 TSH 1.50 uIU/m L 0.30-5 .33 Not Available [facility] (Lab) [address] [facility], [place], [address], 06/13/2024 13:24:22 06/08/19 25 06/07/2024 PROLA CTIN prolactin, total 17.60 NG/mL 4.79-2 3.30 This assay was perfo rmed using [employer] ratio n reage nts and test kits. Value s obtai uriel with other assay metho ds or kits canno t be used inter sin e[facility]os[facility] . Not Available [facility] (Lab) [address] [place], [address], 06/13/2024 13:24:22 06/08/19 25 06/07/2024 PROGE STERO NE progesterone 0.22 NG/mL This assay was perfo rmed using [employer] ratio n reage nts and test kits. Value s obtai uriel with other assay metho ds or kits canno t be used inter [facility] . Femal e Proge stero ne Range s: Folli cular phase 0.06- 0.89 ng/mL Ovula tion phase 0.12- 12.00 ng/mL Lutea l phase 1.83- 23.90 ng/mL Postm enopa usal <0.05 -0.13 ng/mL Healt hy Pregn ant Women 1st Trime ster 11.0- 44.30 2nd Trime ster 25.40 -83.3 0 3rd Trime ster 58.70 -214. 00 Not Available [facility] (Lab) [address] [place], [address], 06/13/2024 13:24:22 06/08/19 25 06/07/2024 FSH, LH, ESTRA DIOL estradiol 16.9 pg/mL This assay was perfo rmed using [employer] ratio n reage nts and test kits. Value s obtai uriel with other assay metho ds or kits canno t be used inter [facility] . Femal e Estra diol Range s: Folli cular phase 12.4- 233 pg/mL Ovula tion phase 41.0- 398 pg/mL Lutea l phase 22.3- 341 pg/mL Postm enopa usal <5-13 8 pg/mL Healt hy Pregn ant Women 1st Trime ster 154-3 243 pg/mL 2nd Trime ster 1561- 46715 pg/mL 3rd Trime ster 8525- >3000 0 pg/mL Not Available [facility] (Lab) [address] [place], [address], 06/13/2024 13:24:23 06/08/19 25 06/07/2024 FSH, LH, ESTRA DIOL FSH 20.3 mIU/m L This assay was perfo rmed using [employer] ratio n reage nts and test kits. Value s obtai uriel with other assay metho ds or kits canno t be used inter [facility] . Femal es Folli cular : 3.5-1 2.5 mIU/m L Ovula tion: 4.7-2 1.5 mIU/m L Lutea l: 1.7-7 .7 mIU/m L Postm enopa use: 25.8- 134.8 mIU/m L Not Available [facility] (Lab) [address] [facility], [place], [address], 06/13/2024 13:24:23 06/08/19 25 06/07/2024 FSH, LH, [...] use: 7.7-5 8.5 mIU/m L Not Available [facility] (Lab) [address] [facility], [place], [address], 06/13/2024 13:24:23 06/08/19 25 06/07/2024 DHEA SULFA TE DHEA-sulfate 68 ug/dL Femal e Range s Age(y ) Range (ug/d L) 10-15 34-28 0 15-20 65-36 8 20-25 148-4 07 25-35 99-34 0 35-45 61-33 7 45-55 35-25 6 55-65 19-20 5 65-75 9-246 > 75 12-15 4 Not Available [facility] (Lab) [address] [facility], [place], [address], 06/13/2024 13:24:23 06/08/19 25 06/07/2024 TESTO STERO NE, FREE( DIALY SIS) AND TOTAL (LC/M S/MS) testosterone , total 22 NG/dL 2-45 For addit ional infor bertha haynes e refer to http: //balaji camarena.que stdia gnost ics.c om/fa q/ Total Testo stero neLCM [facility] Q165 (This link is being provi ded for infor matio nal/ educa el l purpo ses only. ) This test was devel oped and its mariaa tical perfo rmanc e arlin cteri stics have been deter mined by [facility] [place], [place]. It has not been clear ed or appro [place] by the U.S. Food and Drug Admin istra tion. This assay has been valid ated pursu ant to the CLIA regul ation s and is used for clini josias purpo ses. Not Available [facility] (Lab) [address] [facility], [place], [address], 06/13/2024 13:24:23 06/08/19 25 06/07/2024 TESTO STERO NE, FREE( DIALY SIS) AND TOTAL (LC/M S/MS) testosterone , free 3.0 pg/mL 0.1-6. 4 This test was devel oped and its mariaa tical perfo rmanc e arlin cteri stics have been deter mined by [facility] [place]. It has not been clear ed or appro [place] by the U.S. Food and Drug Admin istra tion. This assay has been valid ated pursu ant to the CLIA regul ation s and is used for clini josias purpo ses. Perfo rming Organ izati on Infor matio n: Site ID: AMD Name: [facility] Inst[facility] tute Addre ss: [id number] [facility] [employer] [place], [place] Direc tor: Ly Izaguirre MD PhD Not Available [facility] (Lab) [address] [facility], [place], [address], 06/13/2024 13:24:23 06/30/19 25 06/29/2024 FSH, LH, ESTRA DIOL estradiol 20.1 pg/mL This assay was perfo rmed using [employer] ratio n reage nts and test kits. Value s obtai uriel with other assay metho ds or kits canno t be used inter [facility] . Femal e Estra diol Range s: Folli cular phase 12.4- 233 pg/mL Ovula tion phase 41.0- 398 pg/mL Lutea l phase 22.3- 341 pg/mL Postm enopa usal <5-13 8 pg/mL Healt hy Pregn ant Women 1st Trime ster 154-3 243 pg/mL 2nd Trime ster 1561- 24009 pg/mL 3rd Trime ster 8525- >3000 0 pg/mL Not Available [facility] (Lab) [address] [place], [address], 06/30/2024 04:31:15 06/30/19 25 06/29/2024 FSH, LH, ESTRA DIOL FSH 21.5 mIU/m L This assay was perfo rmed using [employer] ratio n reage nts and test kits. Value s obtai uriel with other assay metho ds or kits canno t be used inter [facility] . Femal es Folli cular : 3.5-1 2.5 mIU/m L Ovula tion: 4.7-2 1.5 mIU/m L Lutea l: 1.7-7 .7 mIU/m L Postm enopa use: 25.8- 134.8 mIU/m L Not Available [facility] (Lab) [address] [place], [address], 06/30/2024 04:31:15 06/30/19 25 06/29/2024 FSH, LH, ESTRA DIOL LH 16.8 mIU/m L This assay was perfo rmed using [employer] ratio n reage nts and test kits. Value s obtai uriel with other assay metho ds or kits canno t be used [facility] . Femal es Mid-F ollic ular: 2.4-1 2.6 mIU/m L Mid-C ycle: 14.0- 95.6 mIU/m L Mid-L uteal : 1.0-1 1.4 mIU/m L Postm enopa use: 7.7-5 8.5 mIU/m L Not Available [facility] (Lab) [address], [place], [address], 06/30/2024 04:31:15 06/18/1906/17/2024 US, pelvi s No observ ation record ed. [email or web address] [facility] [address], [place], [address], 06/17/2024 12:15:08 06/18/1906/17/2024 US, trans vagin al No observ ation record ed. [email or web address] [facility] [address], [place], [address], 06/17/2024 12:15:17 06/18/1906/17/2024 US, pelvi s No observ ation record ed. [facility] [address] [facility], [place], [address], 06/29/2024 14:11:14 Result Notes None recorded. Problems Name Problem SNOMED Code Status Onset Date Resolution Date Notes Provider Name and Address Organization Details Recorded Time Irritable bowel syndrome 10409111 Active 2022 Azra Watson MD [address], [place], [address], [facility] 3 21:38:58 Rheumatoid arthritis 98796347 Active 2023 Clarisa joyce, [facility] 4 09:40:29 Diabetes mellitus 20964601 Active 2023 Clarisa joyce, [facility] 4 09:40:35 Hypertensive disorder 67308721 Active 2023 Clarisa joyce, [facility] 4 09:40:45 Problem Notes None recorded. Procedures Surgical History Date Name Laterality Status Provider Name and Address Organization Details Recorded Time 03/17/20 25 Date of Last Pap Smear completed Yazmin Inocencio [facility] 06/29/2024 09:38:29 05/23/19 25 Date of Last Mammogram completed Rachel Begum [facility] 06/07/2024 09:10:49 05/27/19 24 laparoscopic salpingo-oophore ctomy completed Clarisa [facility] 06/03/2023 09:43:16 04/09/19 23 [facility] 14:36:13 04/09/19 23 Date of Last Colonoscopy completed [facility] 05/15/2022 14:36:13 03/24/19 22 Colonoscopy completed [facility] 06/03/2023 09:41:28 03/24/18 96 Breast Biopsy completed [facility] 06/03/2023 09:41:20 Imaging Results None [...] SYMPTOMAT IC OTHERWISE TAKE 1 TABLET DAILY active Not Available Not Available No t Available meloxicam 15 mg tablet TAKE 1 [...] Updated DateTime 06/03/2023 162.56 cm 50.8 kg/m2 401352.3 4 g 138 mm[Hg] 91 mm[Hg] Clarisa Machuca [facility] 4 09:38:27 Date Recorded Body height Body mass index (BMI) Body weight Systolic blood pressure Diastolic blood pressure Provider Name and Address Organization Details Last Updated DateTime 06/07/2024 162.56 cm 46.5 kg/m2 269614.5 3 g 117 mm[Hg] 81 mm[Hg] Rachel Begum [facility] 5 09:08:15 Date Recorded Body height Body mass index (BMI) Body weight Systolic blood pressure Diastolic blood pressure Provider Name and Address Organization Details Last Updated DateTime 06/29/2024 162.56 cm 45.1 kg/m2 925143.7 9 g 119 mm[Hg] 68 mm[Hg] Yazmin Painter [facility] 5 09:35:55 Date Recorded Body height Body mass index (BMI) Body weight Systolic blood pressure Diastolic blood pressure Provider Name and Address Organization Details Last Updated DateTime 08/11/2024 162.56 cm 44.5 kg/m2 699500.4 2 g 114 mm[Hg] 79 mm[Hg] Yazminroni Painter [facility] 16:46:17 Social History Question Answer Notes LastModified by Organizat ion Details LastModified Time Tobacco Smoking Status Never Smoker Rachel Begum maria del carmen, [facility] 03/28/2023 15:21:57 Are You Blind Or [...] Or The Highest Degree You Have Received? [id number] Information not available 05/15/2022 Are There Any [...] Have Difficulty Walking Or Climbing Stairs? No [email or web address] Information not available 03/28/2023 Sex: Unknown Functional Status Question Answer Note LastModified by Organizat ion Details LastModified Time Do you use any illicit or recreational drugs? No Information not available 05/15/2022 What is your level of alcohol consumption? None Information not available 05/15/2022 Are you able to walk? YESWOREST Information not available 05/15/2022 Are you able to care for yourself? 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 No [email or web address] Information not available 03/28/2023 What is your exercise level? Occasional Information not available 05/15/2022 Mental Status Question Answer Note LastModified by Organization D etails LastModified Time Do you feel stressed (tense, restless, nervous, or anxious, or unable to sleep at night)? [id number] Information not available 05/15/2022 Family History Relationship Description Onset Age of this Age Resolved Age Notes LastModified by Organization Details LastModified Time Paternal Grandfather Heart disease [email or web address] Not available 06/02 09:39:25 Maternal Grandmother Myocardial infarction [email or web address] Not available 05/22 09:39:25 Maternal Grandmother Hypertensive disorder [email or web address] Not available 06/02 09:39:25 Maternal Grandmother Heart disease [email or web address] Not available 06/02 09:39:25 Maternal Grandmother Diabetes mellitus [email or web address] Not available 06/02 09:39:25 Mother Hypercholest erolemia [email or web address] Not available 06/02 09:39:25 Mother Disorder of lung [email or web address] Not available 06/02 09:39:25 Mother Hypertensive disorder [email or web address] Not available 06/02 09:39:25 Mother Diabetes mellitus [email or web address] Not available 06/02 09:39:25 Paternal Grandmother Hypercholest erolemia [email or web address] Not available 06/02 09:39:25 Paternal Grandmother Myocardial infarction [email or web address] Not available 05/22 09:39:25 Paternal Grandmother Cerebrovascu lar accident [email or web address] Not available 09:39:25 Paternal Grandmother Hypertensive disorder [email or web address] Not available 06/02 09:39:25 Paternal Grandmother Heart disease [email or web address] Not available 06/02 09:39:25 Paternal Grandmother Diabetes mellitus [email or web address] Not available 06/02 09:39:25 Maternal Aunt Myocardial infarction [email or web address] Not available 05/22 09:39:25 Maternal Aunt Malignant neoplasm of uterus Not available 06/02 09:39:25 Maternal Aunt Diabetes mellitus Not available 06/02 09:39:25 Father Hypercholest erolemia [email or web address] Not available 06/02 09:39:25 Maternal Grandfather Myocardial infarction [email or web address] Not available 05/22 09:39:25 Maternal Grandfather Heart disease [email or web address] Not available 06/02 09:39:25 Maternal Grandfather Diabetes mellitus [email or web address] Not available 06/02 09:39:25 Paternal Aunt Hypercholest erolemia Not available 06/02 09:39:25 Paternal Aunt Malignant tumor of cervix [email or web address] Not available 06/02 09:39:25 Paternal Aunt Malignant neoplasm of uterus [email or web address] Not available 06/02 09:39:25 Paternal Aunt Diabetes mellitus [email or web address] Not available 06/02 09:39:25 Paternal Uncle Disorder of lung [email or web address] Not available 06/02 09:39:25 Paternal Uncle Malignant neoplasm of lung [email or web address] Not available 07/23 16:06:25 Paternal Uncle Malignant tumor of colon [email or web address] Not available 06/02 09:39:25 Medical History Condition Response Other N Blood Transfusion N Dermatologic Disorders N Gestational Diabetes N Anxiety Disorder Y Autoimmune disease Y Arthritis Y Polyps N Infertility N Acid Reflux (GERD) Y Cancer N Varicosities N Stroke N Neurologic/Epilepsy N Fibromyalgia N Headaches N Kidney Disease N Heart Problems Y Kidney or Bladder Problems N Eating Disorder N Art (IVF or FET) N Hepatitis/Liver Disease Y No Past Medical History N Urinary Tract Infection Y Trauma/Violence N Thrombophilias N Allergies (Food, seasonal, environmental ) N Breast Cancer N Drug/Latex Allergies/Reactions N Lung Disease N Defects or Inherited Disease N Breast Problem Y Hematologic disorders N Anesthesia Complications N History of STI N Deep Vein Thrombosis N Polycystic ovary syndrome N History of abnormal pap N Endometriosis N High Cholesterol N Thyroid Problems N GI Problems Y Anemia Y Psychiatric Illness N Ovarian Cancer N Diabetes Y Pulmonary (TB, Asthma) N Eczema N Abuse/Domestic Violence N Depression/ depression Y Heart Disease N Pre-Eclampsia N Hypertension Y Osteoporosis N Gynecological History Statement/Question Response Date of [...] SNOMED-CT Code Diagnosis ICD10 Code Diagnosis Note [id number] DIRK Varner [facility] [address] [address] 05/15/2022 14:22:41 05/15/2022 15:59:40 Screening for malignant neoplasm of breast 228368343 Z12.39 Gynecologi c examination 65858664 Z01.419 Suggested Calcium with Vitamin D 1200-1500m g daily. Patient advised to get an annual flu shot in the fall and she could obtain at [facility] or [facility] care clinic. Also to obtain TDap vaccinatio [...] of plan of care. Cyst of ovary 80448033 N 83.209 [id number] Azra Watson MD [facility] [address] [address] 05/22/2022 10:48:23 05/22/2022 14:50:03 Cyst of ovary 42210487 N83.209 [id number] Azra Watson MD [facility] [address] [address] 05/29/2022 11:46:34 06/03/2022 16:19:39 Cyst of left ovary 8979081490 6271774 N83.202 [id number] Azra Watson MD [facility] [address],[place] [address] 05/29/2022 14:44:06 05/29/2022 14:55:19 [id number] Azra Watson MD [facility] [address],[place] [address] 07/10/2022 09:21:34 07/10/2022 10:29:28 Pain in pelvis 32566921 R10.2 N83.299 [id number] Azra Watson MD [facility] [address],[place] [address] 08/06/2022 16:30:52 08/07/2022 10:24:27 Hemorrhagic cyst of ovary 587768502 N83.209 Cyst of left ovary 84356 65004 5165755 N83.202 physiologi c Left lower quadrant pain 267418591 R10.32 [id number] Jessy Barahona [facility] [address],[place] [address] 02/28/2023 14:02:28 03/05/2023 17:08:16 Cyst of ovary 09266557 N83.[address] scan which [...] and review of plan of care. Menorrhagia 889472096 N9 2.0 Options discussed for heavy menses (including but not limited to various BC methdods/e ndometrial ablation); she will further discuss her goals for her menses during her MD consult. [id number] Altaf Prasad MD [facility] [address],[place] [address] 03/14/2023 16:48:36 03/16/2023 09:40:44 Cyst of left ovary 9736379940 1660130 N83.202 R10.2 [id number] Altaf Prasad MD [facility] [address] [address] 03/28/2023 15:18:52 03/28/2023 16:28:49 Mass of ovary 103191467 R19.09 Menorrhagia 538575921 N9 2.0 This patient is a 43year-old [...] We made a decision to perform surgery. [id number] Altaf Prasad MD [facility] [address] [address] 05/21/2023 16:40:35 05/21/2023 17:30:58 Menorrhagia 265446647 N92.0 Mass of ovary 965392732 R19.09 43-year-ol d female with menorrhagi a and cystic ovarian mass. We have agreed to perform endometria l ablation With hysterosco py and laparoscop ic bilateral salpingect joe with left oophorecto my. she is completed the informed consent process and is ready to proceed. She understand s the risks, benefits, and alternativ es. [id number] Altaf Prasad MD [facility] [address] [address] 06/03/2023 09:26:02 06/03/2023 09:51:14 Postoperative care 169158128 Z48.89 this patient is a 43-year-ol d [...] She will go back to work tomorrow. [id number] DIRK Varner [facility] [address] [address] 06/07/2024 08:53:41 06/07/2024 11:34:15 Gynecologic examination 54292502 Z01.419 Z11.51 [facility] - BSPap - done todaySTI screen - declinedMa mmogram - UTDColon cancer screening - UTDRoutine labs - UTD/PCPRTC in 1 yr or [...] have been answered. Abnormal u terine bleeding 2959883994 9100 N93.9 Discussed recent return of heavy periods s/p endometria l ablationwi ll check labs and pelvic u/sMD u/s f/u scheduled Time spent in visit is a total of 30 mins with at least 50% of visit consisting of counseling and review of plan of care. Menopausal symptom 77068 002 N95.1 [id number] Altaf Prasad MD [facility] [address] [address] 06/17/2024 09:19:49 06/17/2024 10:15:50 Abnormal uterine bleeding 0450450665 9100 N93.9 R10.2 [id number] Altaf Prasad MD [facility] [address] [address] 06/29/2024 09:19:07 06/29/2024 10:18:36 Abnormal uterine bleeding 6450429821 9100 N93.9 R10.2 Menorrhagia 325590747 N9 2.0 This patient is a 44-year-ol [...] 30 minutes on her care in total. [id number] Altaf Prasad MD [facility] [address] [address] 08/11/2024 16:06:17 08/12/2024 07:03:27 Pain in pelvis 47331388 R10.2 this patient is a 44-year-ol d [...] ID Guarantor Name 06/03/2023 1 [employer] [id number] Radha Dill [id number] 1 Radha Dill 06/07/2024 1 [employer] [id number] Radha Dill [id number] 1 Radha Dill 06/17/2024 1 [employer] [id number] Radha iDll [id number] 1 Radha Dill 06/29/2024 1 [employer] [id number] Radha Dill [id number] 1 Radha Dill 08/11/2024 1 [employer] [id number] Radha Dill [id number] 1 Radha Dill Notes Date Note Type [...] tomorrow. Altaf Prasad MD [address], [place], [address], [facility] 06/03/2023 09:49:48 06/07/2024 text/html Annual GYNReport [...] 1-2 hours.has started experiencing hot flashesmammogram UTD olonoscopy [id number] DIRK Varner [address], [place], [address], [facility] 06/07/2024 11:31:40 06/29/2024 text/html This patient [...] to robotic hysterectomy with bilateral salpingo-oophorectomy Altaf rPasad MD [address], [place], [address], [facility] 06/29/2024 10:17:07 08/11/2024 text/html this patient [...] infection. Altaf Prasad MD [address], [place], [address], [facility] 08/11/2024 19:26:26 OBGyn Episode No OBEpisode recorded.
--- OUTSIDE RECORDS SUMMARY | 2024-08-25 00:40 | XMS_ITS | Clinical Summary ---
Author Organization [facility] [employer] Address [address] [place] [address] Care Team Providers Care Round Up Ring Hand Name Role Phone Ayla Salazar PA-C Primary Care Provider + Source Comments [facility] [employer],non-owned Affiliates and Associated Physician Practices is amultiple site organization consisting of ambulatory clinics and hospital sitesin [place], [place], [place] and [place]. This disclosure is being madepursuant to the Care Everywhere program and may not contain all information available regarding this patient. Last updated 17.[facility] [employer] Allergies No known active allergies Medications * [...] before meals for 30 days. Active Pancrelipase, Imz-Jajw-Efyx, (CREON PO) Active Multiple Vitamins-Minera ls (MULTIVITAMIN [...] OR DERABLES Final Result Performing Organization Address City/State/[facility] Co de Phone Number [facility] [address] [place] [address] from Last 3 Months or Most Recently Relevant to Health Maintenance Insurance [employer] SELF PAY NO INSURANCE Member Subscriber Plan / Payer (Ef fective for All Dates) Name:Radha Dill Member ID:Not on file Relation to Subscriber:Not on file Name:RADHA DILL Subscriber ID:Not on file Address: [address] [place] [phone] Payer ID:Not on file Group ID:Not on file Type:Self Pay Address: [place], [place] CIGNA SELF PAY NO INSURANCE Member Subscriber Plan / Payer (Ef fective for All Dates) Name:Radha Dill Member ID:Not on file Relation to Subscriber:Not on file Name:RADHA DILL Subscriber ID:Not on file Address: [address] [place] [phone] Payer ID:Not on file Group ID:Not on file Type:Self Pay Address: [place], [place] CIGNA SELF PAY NO INSURANCE Member Subscriber Plan / Payer (Ef fective for All Dates) Name:Radha Dill Jodie Member ID:Not on file Relation to Subscriber:Not on file Name:RADHA DILL Subscriber ID:Not on file Address: [address] [place] [phone] Payer ID:Not on file Group ID:Not on file Type:Self Pay Address: [place], [place] Care Teams Round Up Ring Hand Relationship Specialty Start Date End Date Ayla Salazar PA-C [address] [place] [phone] PCP - General 07/12/20
--- OUTSIDE RECORDS SUMMARY | 2024-08-25 00:40 | XMS_ITS | Clinical Summary ---
Author Organization [facility] [address] [place] [address] Care Team Providers Care Wet Pour Supervisor Name Role Phone Ayla Salazar Unavailable Raji Spears MD Unavailable [phone] Altaf Prasad MD Unavailable Suresh Child MD Primary Care Provi jonelle Allergies Active Allergy Reactions Criticality Noted Date Comments Mttggda-Dlo-Kzk Reductase Inhibitors Muscle pain Medium 04/01/2023 Intolerance to atorvastatin and rosuvastatin. Bad cramps Medications ezetimibe (ZETIA) 10 mg tabletIndications :Mixed hyperlipidemia Take 1 tablet (10 mg total) by mouth daily 90 tablet 4 024 Active traZODone (DESYREL) 50 mg tabletIndications :Other insomnia Take 1 tablet (50 mg total) by mouth nightly as needed for sleep 90 tablet 1 024 Active venlafaxine XR (EFFEXOR-XR) 150 mg 24 hr capsuleIndication s:PAULINE (generalized anxiety disorder) TAKE 1 CAPSULE BY MOUTH DAILY 90 capsule 3 2 025 Active topiramate (TOPAMAX) 25 mg tabletIndications :Chronic migraine with aura without status migrainosus, not intractable Take 1 tablet (25 mg total) by mouth nightly for 14 days, THEN 2 tablets (50 mg total) nightly. 74 tablet 1 025 Active ferrous sulfate (FeroSuL) 325 mg (65 mg of elemental iron) tablet TAKE 1 TABLET BY MOUTH DAILY WITH BREAKFAST 90 tablet 1 025 Active dicyclomine (BENTYL) 10 mg capsule Take 10 mg-20 mg up to 4 times daily as needed for abdominal cramping 120 capsule 025 Active pancrelipase (Zenpep) 40,000-126,000- 168,000 unit per capsuleIndication s:Pancreatic insufficiency Take 2 capsules with meals and 1 with a snack; up to 8 capsules daily 240 capsule 2 025 Active omeprazole (PriLOSEC) 40 mg capsule Take 1 capsule (40 mg total) by mouth daily 90 capsule 3 [address] (VOLTAREN) 75 mg EC tablet Take 1 tablet (75 mg total) by mouth 2 (two) times a day 60 tablet 025 Active ondansetron (ZOFRAN) 4 mg tablet Take 1 tablet (4 mg total) by mouth every 8 (eight) hours as needed for nausea or vomiting 21 tablet 025 Active metoprolol XL (TOPROL-XL) 50 mg extended release tablet Take 1 tablet (50 mg total) by mouth daily 90 tablet 1 025 2024 Active tirzepatide (Mounjaro) 15 mg/0.5 mL pen injector injection Inject 0.5 mL (15 mg total) under the skin every 7 days 2 mL 025 Active metoprolol XL (TOPROL-XL) 50 mg extended release tablet 1 tablet (50 mg total) daily 020 2024 Discontinued(R eorder) terbinafine (LamiSIL) 250 mg tabletIndications :Onychomycosis Take 1 tablet (250 mg total) by mouth daily 90 tablet 025 2024 tirzepatide (Mounjaro) 12.5 mg/0.5 mL pen injector injection Inject 0.5 mL (12.5 mg total) under the skin every 7 days 2 mL 025 2024 Discontinued amoxicillin-clavu lanate (AUGMENTIN) 875-125 mg per tablet Take 1 tablet (875 mg of amoxicillin total) by mouth 2 (two) times a day for 7 days 14 tablet 025 2024 Active Problems Problem Noted Date Diagnosed Date [...] [place] Assessment & Plan (04/01/2023 10:47 AM ANDROID ARCHITECT): Chronic. Very well controlled on current regimen. [...] cholesterol. Assessment & Plan (04/01/2023 10:48 AM ANDROID ARCHITECT): Patient reports prior intolerance to both atorvastatin [...] Effexor Assessment & Plan (04/01/2023 10:48 AM ANDROID ARCHITECT): Chronic. Well controlled on current medication. We will continue for now. Brief supportive counseling provided. Monitor Diabetes mellitus, type 2 05/22/2022 Assessment & Plan (09/30/2023 9:20 AM CDT): Chronic. Diabetes is controlled. Obesity needs improvement encouraged healthy diet, exercise, weight loss. Continue current prescription medication Diverticulosis of colon 07/26/2020 Gastroesophageal reflux disease 07/26/2020 Assessment & Plan (04/01/2023 10:42 AM ANDROID ARCHITECT): Chronic. Relatively controlled with omeprazole. Continue. Liver fibrosis 07/26/2020 Overview (04/01/2023): Liver biopsy done 08/14/20 at [facility] -- Steatohepatitis, NAFLD score 6 -- Steatosis, diffuse -- Mild portal inflammation and rare foci of lobular infiltration -- Prominent balloon degeneration -- Fibrosis stage, mild, stage 1 Assessment & Plan (09/30/2023 9:18 AM CDT): Encouraged healthy diet, exercise, weight loss. Liver enzymes are normal. We will need to monitor with starting Zetia Assessment & Plan (04/01/2023 10:43 AM ANDROID ARCHITECT): Mild fibrosis on liver biopsy in 2020. [place] likely due to nonalcoholic steatohepatitis. Counseled on healthy diet, exercise, weight loss. We will see if increased dose of Ozempic can provide added weight loss benefits in addition to helping with her diabetes control. Patient needs to transition GI doctors due to change in insurance. She previously saw Dr. Livingston at [facility]. Given Dr. Livingston is now with DELVIN/Michaela at [facility] we will go ahead and refer back to her. Pancreatic insufficiency 07/26/2020 Assessment & Plan (09/30/2023 9:19 AM CDT): Chronic. Symptoms controlled with pancrelipase. Continue Assessment & Plan (04/01/2023 10:46 AM ANDROID ARCHITECT): Previously diagnose. Symptoms are relatively controlled as long as she takes the pancreatic enzymes prior to meals. 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 Livingston. Last fiber scan was in 2020 that suggested S3 steatosis and F4 scarring. Liver biopsy done 07/2020 consistent with ilc-gpgbdfn-pusfhtygja steatohepatitis with signs of early fibrosis but not cirrhosis. Was recommended diet, exercises, weight loss Assessment & Plan (09/30/2023 9:18 AM CDT): Chronic. Liver enzymes have been normal. Encouraged healthy diet, exercise, weight loss. Monitor liver enzymes. Keep alcohol in moderation Assessment & Plan (04/01/2023 10:43 AM ANDROID ARCHITECT): Diagnosed previously. Counseled on healthy diet, exercise, [...] loss Assessment & Plan (04/01/2023 10:46 AM ANDROID ARCHITECT): Chronic. Diagnosed about 2 years ago at [facility]. Patient reports her last PCP was 1 [...] Continue Arava. Keep upcoming appointment with new eyeglass fitter given her eyeglass fitter left the system Assessment & Plan (04/01/2023 10:44 AM ANDROID ARCHITECT): Chronic. Currently supposed to be on sulfasalazine but not taking consistently. Has been following with Rheumatology, Dr. Spears. He has her on p.r.n. and tramadol and Flexeril as well. Patient has an appointment to establish with new eyeglass fitter next month. We will defer management of autoimmune diseases and tramadol to the eyeglass fitter Scleroderma 07/26/2020 02/17/2024 Assessment & Plan (09/30/2023 9:18 AM CDT): Chronic. Stable. Continue medication and care per Rheumatology. She will be transitioning to eyeglass fitter within our system as the [facility] eyeglass fitter is no longer with the practice Assessment & Plan (04/01/2023 10:45 AM ANDROID ARCHITECT): Patient reports was a very mild case [...] loss Assessment & Plan (04/01/2023 10:45 AM ANDROID ARCHITECT): Chronic. Suboptimally controlled. Has been working on diet, exercise and weight loss. Was seen better weight loss benefit with Mounjaro but had to be switch to Ozempic due to insurance change. We will see if she can tolerate a slightly higher dose of Ozempic for added benefit for the obesity as well as the diabetes. We did correctional counselor side effects and use. If develops significant intolerance she will need to let us know we will go back down on the dose Encounters Date Type Department Care Team Description 07/20/2024 Results Follow-Up [facility] Gastroenterology at [address] [place] [address] Silvia Cannon PA RUQ Ultrasound 07/17/2024 9:21 AM CDT - 07/17/2024 11:59 PM CDT Hospital Encounter [facility] [address] [place] [address] Liver fibrosis Discharge Disposition: Discharge to home or self care 06/23/2024 3:15 PM CDT Office Visit [facility] Orthopedics and Sports Medicine [address] [facility] [address] [place] [address] Stanley Snider PA Primary osteoarthritis of right knee (Primary Dx); Primary osteoarthritis of left knee; Morbid obesity with BMI of 45.0-49.9, adult (HCC) 06/23/2024 7:46 AM CDT - 06/23/2024 11:59 PM CDT Hospital Encounter [facility] Orthopedics and Sports [address] [place] [address] Discharge Disposition: Discharge to home or self care 06/23/2024 7:46 AM CDT - 06/23/2024 11:59 PM CDT Hospital Encounter [facility] Orthopedics [facility] Sports [address] [place] [address] Discharge Disposition: Discharge to home or self care 06/15/2024 Results Follow-Up [facility] Gastroenterology at [address] [place] [address] Silvia Cannon PA Pancreatic elastase, stool 06/08/2024 8:00 PM CDT - 06/08/2024 11:59 PM CDT Hospital Encounter [address] Pancreatic insufficiency Discharge Disposition: Discharge to home or self care 06/03/2024 2:30 PM CDT Lab [address] Heartburn; Liver fibrosis 06/03/2024 1:45 PM CDT Office Visit [facility] Gastroenterology at [address] [place] [address] Silvia Cannon PA Abdominal cramping (Primary Dx); Liver fibrosis; Pancreatic insufficiency; Fecal urgency; Abdominal bloating; Excessive gas; Heartburn from Last 3 Months Immunizations Immunization Administration [...] 07/26/2020 Liver biopsy don e 08/14/20 at [facility] -- Steatohepatitis, NAFLD score 6 -- Steatosis, [...] Mother's Sister 2 Alexandra Arthritis Paternal Grandmother Houston Diabetes Paternal Grandmother [place] Heart disease Paternal Grandmother [place] Stroke Paternal Grandmother [place] Relation Name Status Comments Father Yogesh Father's Brother 1 Joseph Father's Brother 2 Feliz Father's Sister Sujata Maternal Grandfather Hayden Maternal Grandmother Marilyn Mother Rose Mary Mother's Sister 1 Eula Mother's Sister 2 Alexandra Paternal Grandmother Houston Social History Tobacco Use Types Packs/Day Years [...] on file Legal Sex Female 1:00 AM ANDROID ARCHITECT Gender Identity Female 04/19/2020 10:14 AM ANDROID ARCHITECT Sexual Orientation Straight 04/19/2020 10 :14 AM ANDROID ARCHITECT Obstetrics History Para Term AB IAB SAB Ectopic Multiple Livin g Live Births 0 0 0 0 0 0 0 0 0 0 0 Last Filed Vital Signs Vital Sign Reading Time Taken Comments Blood Pressure 112/75 06/03/2024 1:40 PM CDT Pulse 80 06/03/2024 1:40 PM CDT Temperature 36.6 C (97.8 F) 05/13/2024 2:52 PM ANDROID ARCHITECT Respiratory Rate 18 05/13/2024 7:24 AM ANDROID ARCHITECT Oxygen Saturation 98% 06/03/2024 1:40 PM CDT [...] Routine) 07/17/2024 9:53 AM CDT Liver fibrosis GA ARTHROCENTESIS ASPIR&/INJ MAJOR JT/BURSA W/O US Routine [...] Routine 06/03/2024 2:24 PM CDT Liver fibrosis [id number], TUMOR MARKER Routine 06/03/2024 2:24 PM CDT Liver fibrosis MAGNESIUM Routine 06/03/2024 2:24 PM CDT Heartburn VITAMIN B12 Routine 06/03/2024 2:24 PM CDT Heartburn VITAMIN D 25 HYDROXY Routine 06/03/2024 2:24 PM CDT Heartburn SCREENING MAMMOGRAM BILATERAL W SCOOTER Schedule Routine, Read Routine (OP Routine) 05/22/2024 1:55 PM ANDROID ARCHITECT Screening mammogram, encounter for HEMOGLOBIN A1C Routine 05/10/2024 7:21 AM ANDROID ARCHITECT Type 2 diabetes mellitus with hyperlipidemia (HCC) HEPATITIS C ANTIBODY Routine 02/17/2024 2:19 PM ANDROID ARCHITECT Pain in other joint Positive NOLA (antinuclear antibody) Elevated rheumatoid factor Chronic pain of both knees ALBUMIN CREATININE RATIO, URINE Routine 02/05/2024 12:17 PM ANDROID ARCHITECT Type 2 diabetes mellitus with hyperglycemia, without [...] Routine 05/15/2022 COLONOSCOPY Routine 04/09/2022 3:50 PM ANDROID ARCHITECT from Last 3 Months or Most Recently [...] stone is noted as per the performing nuclear operator. No pericholecystic fluid. Negative sonographic Sidhu sign as per performing nuclear operator. BILIARY: Normal common bile duct measures 3 mm in diameter. RIGHT KIDNEY: Normal in size. Measures 10.3 cm. No hydronephrosis IMPRESSION: 1. Borderline hepatic steatosis. 2. Cholelithiasis without sonographic evidence of acute cholecystitis. THIS IS AN ELECTRONICALLY VERIFIED FINAL REPORT 07/19/2024 7:30 AM - Electronically signed by Chito Washburn M.D. AG: DO Report ID: [id number] Reading Location: [place] [address] Procedure Note Chito Washburn MD - 07/19/2024 [...] mobile stone isnoted as per the performing nuclear operator. No pericholecystic fluid. Negative sonographic Sidhu sign as per performing nuclear operator. BILIARY: Normal common bile duct measures 3 mm in diameter. RIGHT KIDNEY: Normal in size. Measures 10.3 cm. No hydronephrosis IMPRESSION: 1. Borderline hepatic steatosis. 2. Cholelithiasis without sonographic evidence of acute cholecystitis. THIS IS AN ELECTRONICALLY VERIFIED FINAL REPORT 07/19/2024 7:30 AM - Electronically signed by Chito Washburn M.D. AG: DO Report ID: [id number] Reading Location: [place] [address] us Silvia THOMAS IMG US PROCEDURES Final Result * GA ARTHROCENTESIS ASPIR&/INJ MAJOR JT/BURSA W/O US (06/23/2024 [...] Pancreatic elastase, stool <40(L) >200 (Normal) mcg/g [place] [facility] Comment: Interpretation: Abnormal (<100 mcg/g); Consistent with pancreatic insufficiency Test Performed by: [facility] [address] [place], [place] [id number] Security Sales Manager: Brandi Green Ph.D.; CLIA# [id number] Stool 06/08/2024 8:00 PM CDT 06/09/2024 10:40 AM CDT Silvia THOMAS LAB BODY FLUIDS AND STOO LS ORDERABLES Final Result [facility] ([place]) [address] [facility] Department [place] [address] [place] [facility] * (ABNORMAL) Fibro Test-Acti Test (06/03/2024 2:24 PM CDT) FibroTest Score 0.05 [place] [facility] FibroTest Stage F0 [facility] ([place]) FibroTest Interpretation no fibrosis [facility] ([place]) Comment: FibroTest estimates liver fibrosis FibroTest Score Stage Interpretation 0.00-0.21 F0 no fibrosis 0.21-0.27 F0-F1 no fibrosis 0.27-0.31 F1 minimal fibrosis 0.31-0.48 F1-F2 minimal fibrosis 0.48-0.58 F2 moderate fibrosis 0.58-0.72 F3 advanced fibrosis 0.72-0.74 F3-F4 advanced fibrosis 0.74-1.00 F4 severe fibrosis (Cirrhosis) ActiTest Score 0.05 [facility] ([place]) ActiTest Grade A0 [facility] ([place]) ActiTest Interpretation no activity [facility] ([place]) Comment: ActiTest estimates necroinflammatory activity ActiTest Score Grade Interpretation 0.00-0.17 A0 no activity 0.17-0.29 A0-A1 no activity 0.29-0.36 A1 minimal activity 0.36-0.52 A1-A2 minimal activity 0.52-0.60 A2 significant activity 0.60-0.62 A2-A3 significant activity 0.62-1.00 A3 severe activity FibroTest-ActiTest Comment See Comment [facility] ([place]) Comment: The reliability of results is dependent on compliance with the preanalytical and analytical conditions recommended by [employer]. The tests have to be deferred for: [...] developed and its performance characteristics determined by [facility] in a manner consistent with CLIA requirements. This test has not been cleared or approved by the U.S. Food and Drug Administration. [employer] Serial Number [id number] [facility] ([facility]) APOLIPOPROTEIN A1 113(L) >=140 mg/dL [facility] ([facility]) Cqiqq-6-Lsrbxeyjnbolf, Ser 161 100 - 280 mg/dL [facility] ([facility]) Haptoglobin, S 242(H) 30 - 200 mg/dL [facility] ([facility]) Alanine Aminotransferase (ALT), S 19 7 - 45 Units/L [facility] ([facility]) Gamma Glutamyltransferase (GGT), S 17 5 - 36 Units/L [facility] ([facility]) Bilirubin, Total, S 0.2 0.0 - 1.2 mg/dL [facility] ([facility]) Comment: Test Performed by: [facility] [address] [place] [address] Security Sales Manager: Brandi Green Ph.D.; CLIA# [id number] Test Performed by: [address] [address] Security Sales Manager: Brandi Green Ph.D.; CLIA# [id number] Blood 06/03/2024 2:2 4 PM CDT 06/03/2024 3:53 PM CDT us Silvia THOMAS LAB BLOOD ORDERABLES Fin al Result [facility] ([place]) [address] [facility] [place] [address] [facility] ref [facility] * eGFR (06/03/2024 2:24 PM [...] Fin al Result [facility] ([facility]) [address] [facility] [place] [address] * Differential, auto (06/03/2024 2:24 PM CDT) Neutrophil abs 5.1 1.5 - 6.5 K/cumm Imm gran abs 0.0 0.0 - 0.1 K/cumm [facility] ([facility]) Lymphocyte abs 1.7 0.8 - 3.3 K/cumm [facility] ([place]) Monocyte abs 0.5 0.2 - 0.8 K/cumm [...] THOMAS LAB BLOOD ORDERABLES Fin al Result [facility] ([place]) [address] [facility] Department [place] [address] * (ABNORMAL) CBC with auto differential (06/03/2024 [...] Fin al Result [facility] ([place]) [address] [facility] Department [place] [address] * Uthqu-4-Ehlztqjriza, Tumor Marker (06/03/2024 2:24 PM CDT) alpha [...] 2018;57:783-797 Remigio Gallego et al. Clin Chem 2014;7358-5224. Current interpretive data was last revised 2021. Testing performed by: , [address] [place]., [address] Blood 06/03/2024 2:24 PM CDT 06/03/2024 8:01 PM CDT Silvia THOMAS LAB BLOOD ORDERABLES Fin al Result Performing Organization Address City/[facility] Co de Phone Number [facility] ([place]) [address] [facility] [place] [address] * (ABNORMAL) Vitamin D 25 hydroxy (06/03/2024 2:24 PM CDT) Vitamin D 25-OH 15(L) 30 - 80 ng/mL Blood 06/03/2024 2:24 PM CDT 06/03/2024 3:53 PM CDT Silvia THOMAS LAB BLOOD ORDERABLES Fin al Result Performing Organization Address City/[facility] Co de Phone Number [facility] ([place]) [address] [facility] [place] [address] * Magnesium (06/03/2024 2:24 PM CDT) Magnesium 2.3 1.4 - 2.5 mg/dL Blood 06/03/2024 2:24 PM CDT 06/03/2024 3:53 PM CDT Silvia THOMAS LAB BLOOD ORDERABLES Fin al Result [facility] ([place]) 1 [facility] [place] [address] * Vitamin B12 (06/03/2024 2:24 PM CDT) Vitamin B12 275 230 - 1,250 pg/mL Blood 06/03/2024 2:24 PM CDT 06/03/2024 3:53 PM CDT us Silvia THOMAS LAB BLOOD ORDERABLES Fin al Result Performing Organization Address City/[facility] Co de Phone Number [facility] ([place]) 1 [facility] [place] [address] * Comprehensive metabolic panel (06/03/2024 2:24 PM [...] (ERIC) Glucose 85 70 - 199 mg/dL [facility] Comment: Interpretive Data Fasting glucose [...] Fin al Result [facility] ([facility]) [address] [facility] Department [place] [address] * Screening Mammogram Bilateral W Scooter (05/22/2024 1:55 PM ANDROID ARCHITECT) Anatomical Region Laterality Modality Breast Bilateral Mammography 05/23/2024 9:37 PM ANDROID ARCHITECT Impressions 05/23/2024 9:37 PM ANDROID ARCHITECT There is no mammographic evidence to suggest malignancy. The patient may continue screening mammography as per ACR guidelines. FINAL ASSESSMENT: BI-RADS Category 1: Negative. Electronically signed by: Kathia Duncan M.D. Narrative 05/23/2024 9:37 PM ANDROID ARCHITECT EXAMINATION: BILATERAL SCREENING MAMMOGRAM WITH TOMOGRAPHY HISTORY: [...] Result * Hemoglobin A1c (05/10/2024 7:21 AM ANDROID ARCHITECT) [facility] Hgb A1C 5.3 4.0 - 5.6 % Estimated Average Glucose 105 mg/dL [facility] ([place]) Comment: The ADA recommends reporting an estimated Average Glucose (eAG) with all Hemoglobin A1c results using the equation derived from a study of 507 normal and diabetic adults. Minority populations were underrepresented and children were not included. (Diabetes Care 31:4993-1639, 2008). The eAG is not equivalent to a fasting glucose. Blood 05/10/2024 7:21 AM ANDROID ARCHITECT 05/10/2024 10:40 AM ANDROID ARCHITECT us Suresh Child MD LAB BLOOD ORDERABLE S Final Result Performing Organization Address City/[facility]/ZIP Co de Phone Number [facility] ([place]) [address] [facility] Department [place] [address] * Hepatitis C antibody Blood (02/17/2024 2:19 PM ANDROID ARCHITECT) [facility] Hep C Ab Nonreactive Nonreactive Comment: Interpretive [...] revised on 2019. Blood 02/17/2024 2:19 PM ANDROID ARCHITECT 02/17/2024 7:28 PM ANDROID ARCHITECT us Analia Ambriz MD LAB MICROBIOLOGY - GENERAL ORDERABLES Final Result [facility] [address] Department [place] [address] * Albumin Creatinine Ratio, Urine (02/05/2024 12:17 PM ANDROID ARCHITECT) [facility] Albumin Ur 22.1 mg/L Comment: Interpretive Data No reference range established. Current interpretive data was last revised 2018. Testing performed by: [facility], [address] [place] [address]., [address] Creatinine Ur 254.3 mg/dL [facility] ([place]) Comment: Interpretive Data No reference range established. Current interpretive data was last revised 2018. Testing performed by: [facility], [address] [place] [address]., [address] Albumin Creatinine Ratio, Ur 9 1 - 29 mg/g [facility] ([place]) Comment:Testing performed by : [facility], [address] [place] [address]., [address] Urine 02/05/2024 12:1 7 PM ANDROID ARCHITECT 02/05/2024 6:05 PM ANDROID ARCHITECT us Suresh Child MD LAB URINE ORDERABLE S Final Result [facility] ([place]) [address] [facility] Department [place] [address] * (ABNORMAL) Lipid panel (09/23/2023 7:26 AM [...] Pediatrics 2011;128:S213 2. NCEP Expert Panel. Circulation 2003;110:227 Current Interpretive Data was last revised on [...] Pediatrics 2011;128:S213 2. NCEP Expert Panel. Circulation 2003;110:227 Current Interpretive Data was last revised on 2017. Chol/HDL ratio 7 [facility] ([place]) Blood 09/23/2023 7:26 AM CDT 09/23/2023 10:30 AM CDT Azra Nieves MD LAB BLOOD ORDERABLES F inal Result [facility] ([place]) [address] [facility] Department [place] [address] * DIABETES EYE EXAM (06/14/2023) SCRIBED DIABETIC DILATED EYE EXAM Normal Result [facility] Historical Provider HEALTH MAINTENANCE Final Result * PAP SMEAR WITH HPV (05/15/2022) Scribed Pap Smear w/HPV Normal Comment:see care everywhere Result [facility] Historical Provider HEALTH MAINTENANCE Final Result * COLONOSCOPY (04/09/2022 3:50 PM ANDROID ARCHITECT) Historical Provider HEALTH MAINTENANCE Final Result from Last 3 Months or Most Recently Relevant to Health Maintenance Insurance [employer] Address: [address] [place] [address] [employer] Address: [address] [place] [address] Care Teams Wet Pour Supervisor Relationship Specialty Start Date End Date Suresh Child MD [address] [facility] [address] [place] [address] PCP - General Family Practice 02/04/24 Ayla Salazar PA [address] [place] [address] Physician Net Developer Software Engineer C 12/23/19 Raji Spears MD [address] [address] Consulting Physician Rheumatology 04/01/23 Altaf Prasad MD [address] [place] [address] Referring Physician Obstetrics and Gynecology 04/01/23
--- OUTSIDE RECORDS SUMMARY | 2024-08-25 00:40 | XMS_ITS | Referral Summary ---
Author Organization [facility] [address] [place] [address] Care Team Providers Care Healthcare Market Consultant Name Role Phone Ayla Salazar Unavailable Raji Spears MD Unavailable [phone] Altaf Prasad MD Unavailable Suresh Child MD Primary Care Provi jonelle Encounters Date Type Department Care Team Description 07/20/2024 Results Follow-Up [facility] Gastroenterology at [address] [place] [phone] Silvia Cannon PA RUQ Ultrasound 07/17/2024 9:21 AM CDT - 07/17/2024 11:59 PM CDT Hospital Encounter [facility] 1 [place] [address] Liver fibrosis Discharge Disposition: Discharge to home or self care 06/23/2024 7:46 AM CDT - 06/23/2024 11:59 PM CDT Hospital Encounter [facility] Orthopedics and Sports Medicine [address] [place] [address] [address] [place] [phone] Discharge Disposition: Discharge to home or self care 06/23/2024 7:46 AM CDT - 06/23/2024 11:59 PM CDT Hospital Encounter [facility] Orthopedics and Sports Medicine [address] [place] [address] [address] [address] Discharge Disposition: Discharge to home or self care 06/23/2024 3:15 PM CDT Office Visit [facility] Orthopedics and Sports Medicine [address] [place] [address] [address] [place] [address] Stanley Snider PA Primary osteoarthritis of right knee (Primary Dx); Primary osteoarthritis of left knee; Morbid obesity with BMI of 45.0-49.9, adult ([facility]) 06/15/2024 Results Follow-Up [facility] Gastroenterology at [address] [place] [address] Silvia Cannon PA Pancreatic elastase, stool 06/08/2024 8:00 PM CDT - 06/08/2024 11:59 PM CDT Hospital Encounter [address] Pancreatic insufficiency Discharge Disposition: Discharge to home or self care 06/03/2024 2:30 PM CDT Lab [address] Heartburn; Liver fibrosis 06/03/2024 1:45 PM CDT Office Visit [facility] Gastroenterology at [address] [place] [address] Silvia Cannon PA Abdominal cramping (Primary Dx); Liver fibrosis; Pancreatic insufficiency; Fecal urgency; Abdominal bloating; Excessive gas; Heartburn from Last 3 Months Allergies Active Allergy Reactions Criticality Noted Date Comments Tffrcyq-Cpl-Xnm Reductase Inhibitors Muscle pain Medium 04/01/2023 Intolerance [...] CAPSULE BY MOUTH DAILY 90 capsule 3 025 Active topiramate (TOPAMAX) 25 mg tabletIndications [...] (50 mg total) daily 020 2024 Discontinued(R daniela) terbinafine (LamiSIL) 250 mg tabletIndications :Onychomycosis Take [...] [place] Assessment & Plan (04/01/2023 10:47 AM REGULATORY AUDITOR): Chronic. Very well controlled on current regimen. [...] cholesterol. Assessment & Plan (04/01/2023 10:48 AM REGULATORY AUDITOR): Patient reports prior intolerance to both atorvastatin [...] Effexor Assessment & Plan (04/01/2023 10:48 AM REGULATORY AUDITOR): Chronic. Well controlled on current medication. We will continue for now. Brief supportive counseling provided. Monitor Diabetes mellitus, type 2 05/22/2022 Assessment & Plan (09/30/2023 9:20 AM CDT): Chronic. Diabetes is controlled. Obesity needs improvement encouraged healthy diet, exercise, weight loss. Continue current prescription medication Diverticulosis of colon 07/26/2020 Gastroesophageal reflux disease 07/26/2020 Assessment & Plan (04/01/2023 10:42 AM REGULATORY AUDITOR): Chronic. Relatively controlled with omeprazole. Continue. Liver fibrosis 07/26/2020 Overview (04/01/2023): Liver biopsy done 08/14/20 at [facility] -- Steatohepatitis, NAFLD score 6 -- Steatosis, diffuse -- Mild portal inflammation and rare foci of lobular infiltration -- Prominent balloon degeneration -- Fibrosis stage, mild, stage 1 Assessment & Plan (09/30/2023 9:18 AM CDT): Encouraged healthy diet, exercise, weight loss. Liver enzymes are normal. We will need to monitor with starting Zetia Assessment & Plan (04/01/2023 10:43 AM REGULATORY AUDITOR): Mild fibrosis on liver biopsy in 2020. [place] likely due to nonalcoholic steatohepatitis. Counseled on healthy diet, exercise, weight loss. We will see if increased dose of Ozempic can provide added weight loss benefits in addition to helping with her diabetes control. Patient needs to transition GI doctors due to change in insurance. She previously saw Dr. Livingston at [facility]. Given Dr. Livingston is now with DELVIN/Micahela at [facility] we will go ahead and refer back to her. Pancreatic insufficiency 07/26/2020 Assessment & Plan (09/30/2023 9:19 AM CDT): Chronic. Symptoms controlled with pancrelipase. Continue Assessment & Plan (04/01/2023 10:46 AM REGULATORY AUDITOR): Previously diagnose. Symptoms are relatively controlled as long as she takes the pancreatic enzymes prior to meals. 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, Dr. Livingston. Last fiber scan was in 2020 that suggested S3 steatosis and F4 scarring. Liver biopsy done 07/2020 consistent with iyg-owmqhyf-dozazlfiiv steatohepatitis with signs of early fibrosis but not cirrhosis. Was recommended diet, exercises, weight loss Assessment & Plan (09/30/2023 9:18 AM CDT): Chronic. Liver enzymes have been normal. Encouraged healthy diet, exercise, weight loss. Monitor liver enzymes. Keep alcohol in moderation Assessment & Plan (04/01/2023 10:43 AM REGULATORY AUDITOR): Diagnosed previously. Counseled on healthy diet, exercise, [...] loss Assessment & Plan (04/01/2023 10:46 AM REGULATORY AUDITOR): Chronic. Diagnosed about 2 years ago at [facility]. Patient reports her last PCP was [...] Continue Arava. Keep upcoming appointment with new health program director given her health program director left the system Assessment & Plan (04/01/2023 10:44 AM REGULATORY AUDITOR): Chronic. Currently supposed to be on sulfasalazine but not taking consistently. Has been following with Rheumatology, Dr. Spears. He has her on p.r.n. and tramadol and Flexeril as well. Patient has an appointment to establish with new health program director next month. We will defer management of autoimmune diseases and tramadol to the health program director Scleroderma 07/26/2020 02/17/2024 Assessment & Plan (09/30/2023 9:18 AM CDT): Chronic. Stable. Continue medication and care per Rheumatology. She will be transitioning to health program director within our system as the [facility] health program director is no longer with the practice Assessment & Plan (04/01/2023 10:45 AM REGULATORY AUDITOR): Patient reports was a very mild case [...] loss Assessment & Plan (04/01/2023 10:45 AM REGULATORY AUDITOR): Chronic. Suboptimally controlled. Has been working on diet, exercise and weight loss. Was seen better weight loss benefit with Mounjaro but had to be switch to Ozempic due to insurance change. We will see if she can tolerate a slightly higher dose of Ozempic for added benefit for the obesity as well as the diabetes. We did phone counselor side effects and use. If develops [...] on file Legal Sex Female 1:00 AM REGULATORY AUDITOR Gender Identity Female 04/19/2020 10:14 AM REGULATORY AUDITOR Sexual Orientation Straight 04/19/2020 10 :14 AM REGULATORY AUDITOR Last Filed Vital Signs Vital Sign Reading Time Taken Comments Blood Pressure 112/75 06/03/2024 1:40 PM CDT Pulse 80 06/03/2024 1:40 PM CDT Temperature 36.6 C (97.8 F) 05/13/2024 2:52 PM REGULATORY AUDITOR Respiratory Rate 18 05/13/2024 7:24 AM REGULATORY AUDITOR Oxygen Saturation 98% 06/03/2024 1:40 PM CDT [...] Routine) 07/17/2024 9:53 AM CDT Liver fibrosis [place] ARTHROCENTESIS ASPIR&/INJ MAJOR JT/BURSA W/O US Routine [...] Routine 06/03/2024 2:24 PM CDT Liver fibrosis [id number], TUMOR MARKER Routine 06/03/2024 2:24 PM CDT Liver fibrosis MAGNESIUM Routine 06/03/2024 2:24 PM CDT Heartburn VITAMIN B12 Routine 06/03/2024 2:24 PM CDT Heartburn VITAMIN D 25 HYDROXY Routine 06/03/2024 2:24 PM CDT Heartburn SCREENING MAMMOGRAM BILATERAL W SCOOTER Schedule Routine, Read Routine (OP Routine) 05/22/2024 1:55 PM REGULATORY AUDITOR Screening mammogram, encounter for HEMOGLOBIN A1C Routine 05/10/2024 7:21 AM REGULATORY AUDITOR Type 2 diabetes mellitus with hyperlipidemia (HCC) HEPATITIS C ANTIBODY Routine 02/17/2024 2:19 PM REGULATORY AUDITOR Pain in other joint Positive NOLA (antinuclear antibody) Elevated rheumatoid factor Chronic pain of both knees ALBUMIN CREATININE RATIO, URINE Routine 02/05/2024 12:17 PM REGULATORY AUDITOR Type 2 diabetes mellitus with hyperglycemia, without [...] Routine 05/15/2022 COLONOSCOPY Routine 04/09/2022 3:50 PM REGULATORY AUDITOR from Last 3 Months or Most Recently [...] stone is noted as per the performing installation drafter. No pericholecystic fluid. Negative sonographic Sidhu sign as per performing installation drafter. BILIARY: Normal common bile duct measures 3 mm in diameter. RIGHT KIDNEY: Normal in size. Measures 10.3 cm. No hydronephrosis IMPRESSION: 1. Borderline hepatic steatosis. 2. Cholelithiasis without sonographic evidence of acute cholecystitis. THIS IS AN ELECTRONICALLY VERIFIED FINAL REPORT 07/19/2024 7:30 AM - Electronically signed by Chito Washburn M.D. AG: DO Report ID: [id number] Reading Location: [place] [address] Procedure Note Chito Washburn MD - 07/19/2024 [...] mobile stone isnoted as per the performing installation drafter. No pericholecystic fluid. Negative sonographic Sidhu sign as per performing installation drafter. BILIARY: Normal common bile duct measures 3 mm in diameter. RIGHT KIDNEY: Normal in size. Measures 10.3 cm. No hydronephrosis IMPRESSION: 1. Borderline hepatic steatosis. 2. Cholelithiasis without sonographic evidence of acute cholecystitis. THIS IS AN ELECTRONICALLY VERIFIED FINAL REPORT 07/19/2024 7:30 AM - Electronically signed by Chito Washburn M.D. AG: DO Report ID: [id number] Reading Location: [id number] us Silvia THOMAS IMG US PROCEDURES Final Result * [place] ARTHROCENTESIS ASPIR&/INJ MAJOR JT/BURSA W/O US (06/23/2024 [...] Pancreatic elastase, stool <40(L) >200 (Normal) mcg/g [facility] Comment: Interpretation: Abnormal (<100 mcg/g); Consistent with pancreatic insufficiency Test Performed by: [facility] [address] [place] [address] Dental Financial Coordinator: Brandi Green Ph.D.; CLIA# [id number] Stool 06/08/2024 8:00 PM CDT 06/09/2024 10:40 AM CDT us Silvia THOMAS LAB BODY FLUIDS AND STOO LS ORDERABLES Final Result [facility] ([place]) 1 [facility] [place] [address] [facility] * (ABNORMAL) Fibro Test-Acti Test (06/03/2024 2:24 PM CDT) FibroTest Score 0.05 [facility] FibroTest Stage F0 [facility]ZZIE [facility] ([place]) FibroTest Interpretation no fibrosis [facility] ([place]) Comment: FibroTest estimates liver fibrosis FibroTest Score Stage Interpretation 0.00-0.21 F0 no fibrosis 0.21-0.27 F0-F1 no fibrosis 0.27-0.31 F1 minimal fibrosis 0.31-0.48 F1-F2 minimal fibrosis 0.48-0.58 F2 moderate fibrosis 0.58-0.72 F3 advanced fibrosis 0.72-0.74 F3-F4 advanced fibrosis 0.74-1.00 F4 severe fibrosis (Cirrhosis) ActiTest Score 0.05 [facility] (ERIC) ActiTest Grade A0 [facility] ([place]) ActiTest Interpretation no activity [facility] (ERIC) Comment: ActiTest estimates necroinflammatory activity ActiTest Score Grade Interpretation 0.00-0.17 A0 no activity 0.17-0.29 A0-A1 no activity 0.29-0.36 A1 minimal activity 0.36-0.52 A1-A2 minimal activity 0.52-0.60 A2 significant activity 0.60-0.62 A2-A3 significant activity 0.62-1.00 A3 severe activity FibroTest-ActiTest Comment See Comment [facility] (ERIC) Comment: The reliability of results is dependent on compliance with the preanalytical and analytical conditions recommended by [employer]. The tests have to be deferred for: [...] developed and its performance characteristics determined by [facility] in a manner consistent with CLIA requirements. This test has not been cleared or approved by the U.S. Food and Drug Administration. [employer] Serial Number [id number] [facility] (ERIC) APOLIPOPROTEIN A1 113(L) >=140 mg/dL [facility] (ERIC) Gsmqr-7-Dakexgtmvdljs, Ser 161 100 - 280 mg/dL [facility] ([facility]IC) Haptoglobin, S 242(H) 30 - 200 mg/dL [facility] ([facility]IC) Alanine Aminotransferase (ALT), S 19 7 - 45 Units/L [facility] (ERIC) Gamma Glutamyltransferase (GGT), S 17 5 - 36 Units/L [facility] ([facility]) Bilirubin, Total, S 0.2 0.0 - 1.2 mg/dL [facility] (ERIC) Comment: Test Performed by: [facility] [address] [place] [address] Dental Financial Coordinator: Brandi Green Ph.D.; CLIA# [id number] Test Performed by: [facility] [address] [place] [address] Dental Financial Coordinator: Brandi Green Ph.D.; CLIA# [id number] Blood 06/03/2024 2:24 PM CDT 06/03/2024 3:53 PM CDT us Silvia THOMAS LAB BLOOD ORDERABLES Fin al Result [facility] ([facility] 1 [facility] [place] [address] [place] [facility] * eGFR (06/03/2024 2:24 PM [...] Result [facility] (ERIC) 1 [facility] [place] [address] * Differential, auto (06/03/2024 2:24 PM CDT) [...] Neutrophil pct 68.5 % [facility] ([place]) Comment: Interpretive Data Percent cell count reference ranges are not reported, since discordance with absolute values may lead to misinterpretation of CBC data. Current Interpretive Data was last revised on 2017. Imm gran pct 0.3 % [facility] ([place]) Comment: Interpretive Data Percent cell count reference [...] ORDERABLES Fin al Result Performing Organization Address City/[facility] Co de Phone Number [facility] (ERIC) 1 [facility] [place] [address] * (ABNORMAL) CBC with auto differential (06/03/2024 [...] ORDERABLES Fin al Result Performing Organization Address City/[facility]/ZIP Co de Phone Number [facility] (ERIC) 1 [facility] [place] [address] * Saejt-7-Tuqrhrutgcs, Tumor Marker (06/03/2024 2:24 PM CDT) Pathologist [facility] alpha Fetoprotein <2.0 <=8.3 ng/mL Comment: Interpretive [...] 2018;[id number] Remigio Gallego et al. Clin Chem 2014;7889-9325. Current interpretive data was last revised 2021. Testing performed by: [facility], [address] [place] [address] Blood 06/03/2024 2:24 PM CDT 06/03/2024 8:01 PM CDT Silvia THOMAS LAB BLOOD ORDERABLES Fin al Result Performing Organization Address City/[facility]/ZIP Co de Phone Number [facility] (ERIC) 1 [facility] [place] [address] * (ABNORMAL) Vitamin D 25 hydroxy (06/03/2024 2:24 PM CDT) Vitamin D 25-OH 15(L) 30 - 80 ng/mL Blood 06/03/2024 2:24 PM CDT 06/03/2024 3:53 PM CDT Silvia THOMAS LAB BLOOD ORDERABLES Fin al Result [facility] ([place]) 1 [place] [address] * Magnesium (06/03/2024 2:24 PM CDT) [facility] Magnesium 2.3 1.4 - 2.5 mg/dL Blood 06/03/2024 2:24 PM CDT 06/03/2024 3:53 PM CDT Silvia THOMAS LAB BLOOD ORDERABLES Fin al Result [facility] ([place]) 1 [place] [address] * Vitamin B12 (06/03/2024 2:24 PM CDT) [facility] Vitamin B12 275 230 - 1,250 pg/mL Blood 06/03/2024 2:24 PM CDT 06/03/2024 3:53 PM CDT Silvia THOMAS LAB BLOOD ORDERABLES Fin al Result [facility] ([place]) 1 [place] [address] * Comprehensive metabolic panel (06/03/2024 2:24 PM CDT) [facility] Sodium 139 135 - 145 mmol/L Potassium, pl 3.9 3.3 - 4.9 mmol/L [facility] ([place]) Chloride 105 97 - 110 mmol/L [facility] ([facility]) CO2 25 22 - 32 mmol/L [facility] ([place]) Anion gap 10 2 - 15 mmol/L [facility] ([facility]) BUN 12 6 - 25 mg/dL [facility] ([place]) Creatinine 0.96 0.60 - 1.10 mg/dL [facility] ([facility]) Glucose 85 70 - 199 mg/dL [facility] ([place]) Comment: Interpretive Data Fasting glucose >/= 126 [...] Result [facility] (ERIC) 1 [facility] [place] [address] * Screening Mammogram Bilateral W Scooter (05/22/2024 1:55 PM REGULATORY AUDITOR) Anatomical Region Laterality Modality Breast Bilateral Mammography 05/23/2024 9:37 PM REGULATORY AUDITOR Impressions 05/23/2024 9:37 PM REGULATORY AUDITOR There is no mammographic evidence to suggest malignancy. The patient may continue screening mammography as per ACR guidelines. FINAL ASSESSMENT: BI-RADS Category 1: Negative. Electronically signed by: Kathia Duncan M.D. Narrative 05/23/2024 9:37 PM REGULATORY AUDITOR EXAMINATION: BILATERAL SCREENING MAMMOGRAM WITH TOMOGRAPHY HISTORY: [...] Result * Hemoglobin A1c (05/10/2024 7:21 AM REGULATORY AUDITOR) Hgb A1C 5.3 4.0 - 5.6 % Estimated Average Glucose 105 mg/dL [facility] ([place]) Comment: The ADA recommends reporting an estimated Average Glucose (eAG) with all Hemoglobin A1c results using the equation derived from a study of 507 normal and diabetic adults. Minority populations were underrepresented and children were not included. (Diabetes Care 31:6227-9551, 2008). The eAG is not equivalent to a fasting glucose. Blood 05/10/2024 7:21 AM REGULATORY AUDITOR 05/10/2024 10:40 AM REGULATORY AUDITOR Suresh Child MD LAB BLOOD ORDERABLE S Final Result [facility] (ERIC) 1 [facility] [place] [address] * Hepatitis C antibody Blood (02/17/2024 2:19 PM REGULATORY AUDITOR) Pathologist [facility] Hep C Ab Nonreactive Nonreactive Comment: Interpretive [...] revised on 2019. Blood 02/17/2024 2:19 PM REGULATORY AUDITOR 02/17/2024 7:28 PM REGULATORY AUDITOR us Analia Ambriz MD LAB MICROBIOLOGY - GENERAL ORDERABLES Final Result [facility] [address] Department [place] [address] * Albumin Creatinine Ratio, Urine (02/05/2024 12:17 PM REGULATORY AUDITOR) Albumin Ur 22.1 mg/L Comment: Interpretive Data No reference range established. Current interpretive data was last revised 2018. Testing performed by: [facility], [address] [place] [address]., [id number] Creatinine Ur 254.3 mg/dL [facility] (ERIC) Comment: Interpretive Data No reference range established. Current interpretive data was last revised 2018. Testing performed by: [facility], [address] [place] [address]., [id number] Albumin Creatinine Ratio, Ur 9 1 - 29 mg/g [facility] (ERIC) Comment:Testing performed by : [facility], [address] [place] [address]., [id number] Urine 02/05/2024 12:1 7 PM REGULATORY AUDITOR 02/05/2024 6:05 PM REGULATORY AUDITOR us Suresh Child MD LAB URINE ORDERABLE S Final Result Performing Organization Address City/[facility] Co de Phone Number [facility] (ERIC) 1 [facility] [place] [address] * (ABNORMAL) Lipid panel (09/23/2023 7:26 AM [...] on 2017. Chol/HDL ratio 7 [facility] ([place]) Blood 09/23/2023 7:2 6 AM CDT 09/23/2023 10:30 AM CDT Azra Nieves MD LAB BLOOD ORDERABLES F inal Result [facility] ([place]) 1 [facility] [place] [address] * DIABETES EYE EXAM (06/14/2023) SCRIBED DIABETIC DILATED EYE EXAM Normal Result [facility] Historical Provider HEALTH MAINTENANCE Final Result * PAP SMEAR WITH HPV (05/15/2022) Scribed Pap Smear w/HPV Normal Comment:see care everywhere Historical Provider HEALTH MAINTENANCE Final Result * COLONOSCOPY (04/09/2022 3:50 PM REGULATORY AUDITOR) Historical Provider HEALTH MAINTENANCE Final Result from Last 3 Months or Most Recently Relevant to Health Maintenance Insurance [facility] [employer] Care Teams Healthcare Market Consultant Relationship Specialty Start Date End Date Suresh Child MD [address] [facility] [address] [place] [address] PCP - General Family Practice 02/04/24 Ayla Salazar PA [address] [place] [address] Physician Septic Tank Installer 12/23/19 Raji Spears MD [address] [facility] [address] [place] [address] Consulting Physician Rheumatology 04/01/23 Altaf Prasad MD [address] [place] [address] Referring Physician Obstetrics and Gynecology 04/01/23
--- OUTSIDE RECORDS SUMMARY | 2024-08-25 00:40 | XMS_ITS | CONTINUITY OF CARE DOCUMENT ---
Author Name beverly, beverly Address Unknown Organization [facility] Address [address] [place] [address] Phone [phone] Care Team Providers Care Seismometer Operator Name Role Phone Petr STEVENSON, Juan Unavailable HAZEL FERNANDEZ Unavailable HAZEL FERNANDEZ Unavailable [phone] PROBLEMS Condition Status Date Provider Notes Palpitations active Juan Humphreys MD Morbid obesity completed - Juan Humphreys MD HTN active Juan Humphreys MD Hyperlipidemia active Juan Humphreys MD Obstructive sleep apnea - on cpap active Juan Humphreys MD GERD active Juan Humphreys MD Obesity active Ricky Nails Anxiety/ depression active Jarad Gregory Liver steatosis active Jarad Kyyakov Diverticulosis active Jarad Gregory Rheumatoid arthritis active Juan Humphreys MD Ankylosing spondylitis active Juan hood MD Diabetes mellitus, type 2 active Eli bravo EXTENSION SUPERVISOR ENCOUNTERS Date Type Provider Location Encounter Diag nosis - In-person encounter Office Visit Juan Humphreys MD [facility] Diabetes mellitus, type 2 - In-person encounter Office Visit Juan Humphreys MD [facility] Obstructive sleep apnea - on cpapRheumatoid arthritisAnkylosing spondylitis - In-person encounter Office Visit Juan Humphreys MD [facility] Anxiety/ depressionLiver steatosisDiverticulosis - In-person encounter Office Visit Juan Humphreys MD [facility] - In-person encounter Office Visit Juan Humphreys MD [facility] Morbid obesity - In-person encounter Office Visit Juan Humphreys MD [facility] - In-person encounter Office Visit Juan Humphreys MD [facility] Obstructive sleep apnea - on cpapObesity - In-person encounter Office Visit Juan Humphreys MD [facility] Obstructive sleep apnea - on cpapGERD - In-person encounter Office Visit Juan Humphreys MD [facility] - In-person encounter Office Visit Juan Humphreys MD [facility] - In-person encounter Office Visit Juan Humphreys MD [facility] Obstructive sleep apnea - on cpap - In-person encounter Office Visit Juan Humphreys MD [facility] PalpitationsHTNHyperlipidemia VITAL SIGNS Date Observation Value Provider Body Mass Index (Ratio) 55.64 kg/m2 Kvng Humphreys MD blood pressure, diastolic 87 mm[Hg] Shana salgadoLogevangelina blood pressure, systolic 145 mm[Hg] Coco Vencesogevangelina blood pressure, diastolic 87 mm[Hg] Shana salgadoLogevangelina blood pressure, systolic 145 mm[Hg] Coco Vencesogevangelina pulse rate 92 /min Lara Aguila blood pressure, diastolic 87 mm[Hg] pratik Aguila blood pressure, systolic 145 mm[Hg] Sultana Aguila oxygen saturation, oximetry 98 % Lara Aguila respiratory rate E&M 20 /min Lara Aguila blood pressure, cuff size large Ada Aguila weight E&M 324.2 [lb_av] Lara Aguila height E&M 64 [in_i] Lara Aguila Body Mass Index (Ratio) 56.64 kg/m2 Kvng Humphreys MD blood pressure, diastolic 95 mm[Hg] Shana nkLogic blood pressure, systolic 155 mm[Hg] Coco kLogic blood pressure, cuff size large Pa ris Howe blood pressure, diastolic 95 mm[Hg] Pa ris Howe blood pressure, systolic 155 mm[Hg] Par is Alexandra respiratory rate E&M 18 /min [facility] gisela oxygen saturation, oximetry 98 % Alla Howe pulse rate 80 /min Alla Howe weight E&M 330 [lb_av] Alla Alexandra height E&M 64 [in_i] Alla Alexandra Body Mass Index (Ratio) 56.98 kg/m2 Kali Gregory blood pressure, cuff size large Ke rri Gruenenfelder blood pressure, diastolic 88 mm[Hg] Ke rri Gruenenfelder blood pressure, systolic 120 mm[Hg] Ker ri Carlitanenfelder oxygen saturation, oximetry 98 % Nelly Tanelder respiratory rate E&M 18 /min Nelly Davi keeneenenfelder pulse rate 93 /min Nelly Mirlande lder weight E&M 332 [lb_av] Nelly Carlitaneherminio lder height E&M 64 [in_i] Nelly Mirlande lder Body Mass Index (Ratio) 54.92 kg/m2 Anyi haider Puhse blood pressure, cuff size regular Cy ntwendi Rosenberg blood pressure, diastolic 70 mm[Hg] Cy nthia Rosenberg blood pressure, systolic 116 mm[Hg] Kimberly elsa Rosenberg oxygen saturation, oximetry 98 % Elizabeth Rosenberg respiratory rate E&M 16 /min Elizabeth Rosenberg pulse rate 96 /min Elizabeth Campbel l weight E&M 320 [lb_av] Elizabeth Campbel l height E&M 64 [in_i] Elizabeth Campbel l Body Mass Index (Ratio) 49.43 kg/m2 Kvng Humphreys MD blood pressure, diastolic 70 mm[Hg] [facility] O'Christopher blood pressure, systolic 118 mm[Hg] [facility]'Christopher oxygen saturation, oximetry 98 % Bita O'Christopher respiratory rate E&M 16 /min [facility] O'Christopher pulse rate 80 /min [facility] O'Christopher weight E&M 288 [lb_av] [facility] O'Christopher height E&M 64 [in_i] Bita O'Christopher Body Mass Index (Ratio) 54.75 kg/m2 Kali Gregory blood pressure, cuff size large Cy kyleigh Rosenberg blood pressure, diastolic 68 mm[Hg] Cy nthia Rosenberg blood pressure, systolic 122 mm[Hg] Kimberly elsa Rosenberg oxygen saturation, oximetry 98 % Elizabeth Rosenberg respiratory rate E&M 16 /min Elizabeth Rosenberg pulse rate 117 /min Elizabeth Campbel l weight E&M 319 [lb_av] Elizabeth Campbel l height E&M 64 [in_i] Elizabeth Campbel l Body Mass Index (Ratio) 53.58 kg/m2 Fabrizio Nails blood pressure, resting Yes Kvng Humphreys MD blood pressure, cuff size regular [facility], diastolic 68 mm[Hg[facility] pressure, systolic 124 mm[Hg] [facility], oxim[facility] 99 % [facility] E&M 14 /min [facility]&M 312.2 [lb_av] [facility] height E&M 64 [in_i] [facility] Body Mass Index (Ratio) 50.36 kg/m2 Kvng Humphreys MD blood pressure, diastolic 86 mm[Hg] Raya Lucas blood pressure, systolic 135 mm[Hg] Veronica Lucas oxygen saturation, oximetry 98 % Marcos Lucas respiratory rate E&M 16 /min Noe Lucas pulse rate 92 /min Marcos Adarsh miguel a weight E&M 293.4 [lb_av] Marcos Clif baldev height E&M 64 [in_i] Marcos Adarsh miguel a blood pressure, diastolic 88 mm[Hg] Ia geena Mora blood pressure, systolic 123 mm[Hg] Nancy jason Mora pulse rate 98 /min Radha Mora oxygen saturation, oximetry 98 % Radha Mora respiratory rate E&M 16 /min Radha Mora Body Mass Index (Ratio) 50.63 kg/m2 Anyi vitaly Mora weight E&M 295 [lb_av] Radha Mora blood pressure, diastolic 54 mm[Hg] Raya Lucas blood pressure, systolic 132 mm[Hg] Veronica Lucas pulse rate 100 /min Marcos grady oxygen saturation, oximetry 97 % Marcos Lucas respiratory rate E&M 18 /min Noe Lucas Body Mass Index (Ratio) 53.03 kg/m2 Rose Mary Lucas weight E&M 309 [lb_av] Marcos grady blood pressure, diastolic 94 mm[Hg] Raya Lucas blood pressure, systolic 150 mm[Hg] Veronica Lucas pulse rate 91 /min Marcos grady oxygen saturation, oximetry 98 % Marcos Lucas respiratory rate E&M 18 /min Noe Lucas Body Mass Index (Ratio) 52.21 kg/m2 Rose Mary Lucas weight E&M 304.2 [lb_av] Marcos de paz blood pressure, diastolic 104 mm[Hg] Raya Lucas blood pressure, systolic 156 mm[Hg] Veronica Lucas pulse rate 95 /min Marcos grady oxygen saturation, oximetry 98 % Marcos Lucas respiratory rate E&M 16 /min Noe Lucas Body Mass Index (Ratio) 52.66 kg/m2 Rose Mary Lucas weight E&M 306.8 [lb_av] Marcos de paz height E&M 64 [in_i] Marcos grady ALLERGIES No Known Drug Allergies HISTORY OF MEDICATION USE Medication Status Instructions Dates Provider Indications Com eliseo Avelar 5 mg/0.5 mL pen injector active PER PCP Tamiko Ashu metoprolol succinate 50 mg tablet extended release 24 hr active TAKE ONE TABLET TWICE DAILY IF SYMPTOMATIC. OTHERWISE TAKE ONE TABLET DAILY. 05/22 Tamiko Ashu metoprolol succinate 50 mg tablet extended release 24 hr completed TAKE 1 TABLET BY MOUTH EVERY DAY 05/22 - 05/22 Eli Isbellmiglia EXTENSION SUPERVISOR Ozempic 0.25 mg or 0.5 mg (2 mg/3 mL) pen injector completed Inject 1/4 mg subcutaneously once a week for 4 weeks. If tolerated, increase dose to 0.5mg once weekly 05/22 - 07/25 Tamiko Wakefield metoprolol succinate 50 mg tablet extended release 24 hr completed TAKE ONE TABLET TWICE DAILY IF SYMPTOMATIC. OTHERWISE TAKE ONE TABLET DAILY. - 05/22 Elifrantz Isbellmiglserena EXTENSION SUPERVISOR venlafaxine 150 mg capsule,extended release 24hr active TAKE ONE CAPSULE BY MOUTH EVERY MORNING Elifrantz Bachglia EXTENSION SUPERVISOR sulfasalazine 500 mg tablet active TAKE ONE TABLET BY MOUTH FOUR TIMES DAILY AFTER MEALS Elifrantz Isbellmiglia EXTENSION SUPERVISOR cyclobenzaprine 5 mg tablet active 1-2PILLS NIGHTLY FOR BETTER SLEEP AND LESS CRAMPS Elifrantz Isbellmiglia EXTENSION SUPERVISOR Creon 36,000-114,000- 180,000 unit capsule,delayed release(DR/EC) active TAKE THREE CAPSULES BY MOUTH WITH THE FIRST BITE OF YOUR MEALS AND TAKE ONE CAPSULE BY MOUTH WITH THE FIRST BITE OF A SNACK Elifrantz Isbellmiglia EXTENSION SUPERVISOR tramadol 50 mg tablet active TAKE ONE TABLET BY MOUTH TWICE DAILY WITH OTC TYLENOL Elifrantz Isbellmiglia EXTENSION SUPERVISOR omeprazole 40 mg capsule,delayed release(DR/EC) active TAKE ONE CAPSULE BY MOUTH EVERY DAY WITH A MEAL FOR STOMACH Elifrantz Isbellmiglia EXTENSION SUPERVISOR metformin 500 mg tablet extended release 24 hr active TAKE ONE TABLET BY MOUTH EVERY DAY WITH A MEAL FOR DIABETES Elifrantz Bachglia EXTENSION SUPERVISOR VITAMIN D3 1000 UNIT ORAL CAPSULE completed TAke once a week 10/02 - 04/22 Nelly Cordero ZETIA 10 MG ORAL TABLET completed ONE TAB. DAILY 10/02 - 10/02 Elizabeth Rosenberg ATORVASTATIN CALCIUM 40 MG ORAL TABLET completed Take 1 tab daily 10/02 - 05/15 Bita Rojas metoprolol succinate 50 mg tablet extended release 24 hr completed Take 1 tablet by mouth once a day One tab daily unless symptomatic, then increase to twice daily 08/14 - 04/12 Amanda Sotelo METOPROLOL SUCCINATE ER 25 MG ORAL TABLET EXTENDED RELEASE 24 HOUR completed take one tablet daily 03/25 - 08/14 Merlyn Liu RN Effexor XR 75 mg capsule,extended release 24hr active capsule by mouth once a day 03/25 Nelly Zazuetaclementinamariveljazzminebrendan DESLORATADINE 5 MG ORAL TABLET completed once daily - 10/02 Skylar Adorno omeprazole 20 mg capsule,delayed release(DR/EC) active 1 tablet by mouth once a day Tamiko sAhu HYDROCHLOROTHIAZIDE 12.5 MG ORAL CAPSULE completed ONE TAB. DAILY - 04/22 Nelly Cordero LOSARTAN POTASSIUM 50 MG ORAL TABLET completed Take once daily 06/27 - 05/15 Bita Rojas SOCIAL HISTORY Date Observation Value Provider social history E&M S moking History: Sandoval malone has never smoked. Shelli Gamble social history reviewed E&M revi ewed - no changes required Shelli Gamble drug use no Eli Ventimig yvan [facility] alcohol use no Eli Ventimig yvan [facility] smoking status Never smoker Lara Aguila social history E&M S moking History: Sandoval malone has never smoked. Juan Humphreys MD social history reviewed E&M revi ewed - no changes required Juan Humphreys MD chewing tobacco use Never Alla baker smoking status Never smoker Alla Morris social history E&M S moking History: Sandoval malone has never smoked. Juan Humphreys MD social history reviewed E&M revi ewed - no changes required Juan Humphreys MD chewing tobacco use Never Nelly Roberto Carlos kirk smoking status Never smoker Nelly Ciara fraire social history E&M S moking History: Sandoval malone has never smoked. Juan Humphreys MD social history reviewed E&M revi ewed - no changes required Juan Humphreys MD chewing tobacco use Never Elizabeth Chet smoking status Never smoker Elizabeth Millertraci schwartz social history E&M S moking History: Sandoval malone has never smoked. Juan Humphreys MD social history reviewed E&M revi ewed - no changes required Juan Humphreys MD chewing tobacco use Never Bita Carmelita 'Christopher smoking status Never smoker Bita O'Christopher social history E&M S moking History: Sandoval malone has never smoked. Juan Humphreys MD social history reviewed E&M revi ewed - no changes required Juan Humphreys MD chewing tobacco use Never Elizabeth Chet smoking status Never smoker Elizabeth Enid schwartz social history reviewed E&M revi ewed - no changes required Juan Humphreys MD social history E&M Smoking Histo ry: Sandoval malone has never smoked. Juan Humphreys MD smoking status Never smoker Skyalr Adorno number of grandchildren Juan Humphreys MD smoking status Never smoker Juan hood MD social history E&M S moking History: Sandoval malone has never smoked. Juan Humphreys MD social history reviewed E&M revi ewed - no changes required Juan Humphreys MD chewing tobacco use Never Arnaldo Lucas social history reviewed E&M revi ewed - no changes required Juan Humphreys MD chewing tobacco use Never Radha Mora smoking status Never smoker Radha camarena chewing tobacco use Never Lara Naseem guillen NP smoking status Never smoker Marcos Scott social history reviewed E&M revi ewed - no changes required Juan Humphreys MD smoking status Never smoker Marcos Scott social history E&M S moking History: Sandoval malone has never smoked. Juan Humphreys MD smoking status Never smoker Marcos Scott FAMILY HISTORY Family Member Condition Mother Family History of Di abetes: Mother Family History of Hy pertension: Mother Family History of Co ronary Artery Disease: Full Sister Family History of Hy pertension: INSURANCE PROVIDERS Payer name Policy type / Coverage type [place] [employer] party ID [employer] PPO Other [id number] ADVANCE DIRECTIVES Name Date DISCUSSED - NO DECISION MADE TREATMENT PLAN Date Name Performer [id number],S, Eli wahl [facility] [id number],C,l ifestyle modification encoruaged Elifrantz Zurita [facility] [id number],C,c ontrolled on BB. Will monitor H er updated medication list for this problem includes: Metoprolol Succinate 50 Mg Tablet Extended Release 24 Hr (Metoprolol succinate) ..... Take one tablet twice daily if symptomatic. otherwise take one tablet daily. [facility] [id number],C,W ill update lipids O rders: 9 9214 MOD 30-39min (CPT-18931) L IPID PANEL (7600) M icroalb/Creatinine Urine, Random (6517) [facility] [id number],C,B P 145/87 today. She reports well controlled at home. Will monitor. If elevated at next visit can consider addition or acei/arb in setting of DM H er updated medication list for this problem includes: Metoprolol Succinate 50 Mg Tablet Extended Release 24 Hr (Metoprolol succinate) ..... Take one tablet twice daily if symptomatic. otherwise take one tablet daily. Elifrantz Zurita [facility] [id number],C,S marcy last visit patient diagnosed with DM with a HgbA1C of 7%. She has been on metformin alone and glucose not at goal. She would benefit from the addition of ozempic for glycemic control and weight management. She has significant obesity and RA that limit her ability to be mobile. Have discussed ozempic with patient and instructed on use. Will begin at 0.25 mg a week x 4 week and increase to 0.5 mg a week if tolerated in a month. She will f/u in 3 mos or sooner if needed. H er updated medication list for this problem includes: Metformin 500 Mg Tablet Extended Release 24 Hr (Metformin) ..... Take one tablet by mouth every day with a meal for diabetes Eli Zurita [facility] [id number],S, W eight loss advised. Juan Humphreys MD [id number],S, T he patient is using CPAP on a regular basis. The patient has been benefiting from therapy and should continue use. Juan Humphreys MD [id number],N, F /w rheumatology. Gets simponi aria infusion every 8 weeks. Juan Humphreys MD [id number],W, B P is elevated today. State sit's usually well controlled outside the office. Recommended routine home BP monitoring and dietary sodium restriction. Juan Humphreys MD [id number],N, F /w rheumatology. Takes azathioprine TID. Juan Humphreys MD [id number],S, N o recurrence. Juan Humphreys MD [id number],S, D iet controlled. Juan Humphreys MD [id number],S, T he patient is using CPAP on a regular basis. The patient has been benefiting from therapy and should continue use. Juan Humphreys MD Cardiology Eli lyons [facility] Cardiology:lifestyle modificatio n encoruaged Eli Zurita [facility] Cardiology:controlle d on BB. Will monitor H er updated medication list for this problem includes: Metoprolol Succinate 50 Mg Tablet Extended Release 24 Hr (Metoprolol succinate) ..... Take one tablet twice daily if symptomatic. otherwise take one tablet daily. Elifrantz Zurita [facility] Cardiology:Will upda te lipids O rders: 9 9214 MOD 30-39min (CPT-89181) L IPID PANEL (1395) M icroalb/Creatinine Urine, Random (9463) Eli Zurita [facility] Cardiology:BP 145/87 today. She reports well controlled at home. Will monitor. If elevated at next visit can consider addition or acei/arb in setting of DM H er updated medication list for this problem includes: Metoprolol Succinate 50 Mg Tablet Extended Release 24 Hr (Metoprolol succinate) ..... Take one tablet twice daily if symptomatic. otherwise take one tablet daily. [email or web address]serena [facility] Cardiology:Since t visit patient diagnosed with DM with a HgbA1C of 7%. She has been on metformin alone and glucose not at goal. She would benefit from the addition of ozempic for glycemic control and weight management. She has significant obesity and RA that limit her ability to be mobile. Have discussed ozempic with patient and instructed on use. Will begin at 0.25 mg a week x 4 week and increase to 0.5 mg a week if tolerated in a month. She will f/u in 3 mos or sooner if needed. H er updated medication list for this problem includes: Metformin 500 Mg Tablet Extended Release 24 Hr (Metformin) ..... Take one tablet by mouth every day with a meal for diabetes Eli Bacherica [facility] Cardiology: W eight loss advised. Juan Humphreys MD Cardiology: T he patient is using CPAP on a regular basis. The patient has been benefiting from therapy and should continue use. Juan Humphreys MD Cardiology: F /w rheumatology. Gets simponi aria infusion every 8 weeks. Juan Humphreys MD Cardiology: B P is elevated today. State sit's usually well controlled outside the office. Recommended routine home BP monitoring and dietary sodium restriction. Juan Humphreys MD Cardiology: F /w rheumatology. Takes azathioprine TID. Juan Humphreys MD Cardiology: N o recurrence. Juan Humphreys MD Cardiology: D iet controlled. Juan Humphreys MD Cardiology: T he patient is using CPAP on a regular basis. The patient has been benefiting from therapy and should continue use. Juan Humphreys MD Cardiology Follow up :No recurre nce. Cardiology Follow up :Continues on Effexor. Cardiology Follow up :Weight los s advised Cardiology Follow up :Recent hospitalization with diverticulitis which has resolved. Cardiology Follow up :On Omepraz ole. Cardiology Follow up :Weight loss advised. Planned to follow up with bariatric surgery. Cardiology Follow up :Noncompliant as it is broken. Advised to follow up with a dentist. Cardiology Follow up :Diet controlled. Will request labs from your office. Cardiology Follow up :Blood pressure control is satisfactory. Jarad Gregory Cardiology follow up :Weight los s advised. Juan Humphreys MD Cardiology follow up :Diet controlled. Recent labs showed elevated triglycerides. Dietary compliance including reduced intake of carbohydrates and sugars advised. Juan Humphreys MD Cardiology follow up :Noncompliant as the device broke. Advised to contact the prescribing provider. Juan Humphreys MD Cardiology follow up :Continues on Metoprolol Succ 50mg one tab daily, takes one extra tab as needed. Juan Humphreys MD Cardiology follow up :Blood pressure control is satisfactory. Juan Humphreys MD Cardiology:Compliant. Juan aaron MD Cardiology:Continued weight loss advised. Juan Humphreys MD Cardiology:Blood pre ssure control is satisfactory. Off Losartan. Juan Humphreys MD Cardiology:Diet controlled. Kvng Humphreys MD Cardiology:Continues on Metoprolol Succ 50mg one tab daily, takes one extra tab as needed. Juan Humphreys MD Cardiology Follow up :Weight red uction advised. Jarad Gregory Cardiology Follow up :Compliant with device. Jarad Gregory Cardiology Follow up :BP control satisfactory. Losartan has been reduced to 50mg daily from 100mg daily. Jarad Gregory Cardiology Follow up :Recurrence of symptoms most symptomatic is heart racing for the past few days. Advised to increase Metoprolol XL 50mg to two a day. Once the symptoms resolve, she may reduce it back to once daily. Avoid stimulants like coffee and alcohol. She reports that her recent TSH was normal. She has had been extensively investigated in the past including a tele monitor which showed sinus tachycardia. Jarad Gregory Cardiology:Exercise and weight l oss advised. Ricky Nails Cardiology:Started o n Zetia 10mg daily and Atorvastatin 40mg daily. Will request lipid panel results from PCP's office. Ricky [facility] Cardiology:Blood pre ssure control is satisfactory. Continues on Losartan and HCTZ. Ricky [facility] Cardiology:Continues on dental d evice. Ricky [facility] Cardiology:Resolved once Metoprolol Succinate was increased to 50mg daily. Ricky Nails Cardiology:On Omeprazole. Krystian Humphreys MD Cardiology:She jennifer nues to use the mandibular mouthpeice for TANGELA. WIll arrange a home sleep study with the mandibular support. Juan Humphreys MD Cardiology:Diet controlled. Kvng Humphreys MD Cardiology:Blood pre ssure control is satisfactory. Juan Humphreys MD Cardiology:Much impr min since being on Metoprolol which she will continue. Juan Humphreys MD Cardiology:Weight loss advsied. Juan Humphreys MD Cardiology:Diet controlled. Kvng Humphreys MD Cardiology:Blood pre ssure control is satisfactory. Continues on Losartan and HCTZ Juan Humphreys MD Cardiology:Continues to be symptomatic with palpitations. She has sinus tachycardia. Will start her on Metoprolol XL 25mg daily. Please check her TSH and send us the results. WIll repeat an echo before her next visit as the recent EKG shows Q waves in 3 aVF which were not present before. Juan Humphreys MD Cardiology:Patient h ad in home sleep study that showed mild TANGELA. She would like to be fitted for dental appliance first to see if this will correct prior to trying CPAP. Lara Ellington NP Cardiology:Encourage d to continue weight loss efforts. Lara Ellington NP Cardiology:Stable, n o changes recommended. H er updated medication list for this problem includes: Hydrochlorothiazide 12.5 Mg Caps (Hydrochlorothiazide) ..... One tab. daily Losartan Potassium 100 Mg Oral Tabs (Losartan potassium) ..... Once daily Lara Ellington NP Cardiology:Recommend patient und ergo sleep study. Lara Ellington NP Cardiology:Weight loss advised. Juan Humphreys MD Cardiology:Diet controlled. Kvng Humphreys MD Cardiology:Blood pre ssure was slightly elevated. If bp elevation persists, will adjust her antihypertensive medications. Juan Humphreys MD Cardiology:Palpitati ons are much better. Her event monitor will be analyzed and further management as per the results of the event monitor analysis. Juan Humphreys MD Cardiology:Weight lo ss advised. Possible sleep apnea. Will check a home sleep study at a later date. Juan Humphreys MD Cardiology:Blood pre ssure is elevated. She is on Losartan and HCTZ. Juan Humphreys MD Cardiology:Unclear e tiology. Will arrange for her to have a telesentry monitor. Her echocardiogram had shown normal LV size and EF. Juan Humphreys MD Cardiology:DIet controlled. Kvng Humphreys MD Date Name Microalb/Creatinine Urine, Random LIPID PANEL Sleep Study Home Complete Echo Sleep Study Home Mobile Cardiac Tele HISTORY OF PROCEDURES Procedure Date Procedure Name Provider Procedure Notes S tatus EKG Juan Humphreys MD complet ed EKG Juan Humphreys MD complet ed EKG Juan Humphreys MD complet ed EKG Juan Humphreys MD complet ed EKG Juan Humphreys MD complet ed EKG Juan Humphreys MD complet ed EKG Juan Humphreys MD complet ed SNOMED-CT: 863285616 808854 Current Medications Documented Juan Humphreys MD completed SNOMED-CT: 61689881 Physical Exam, Performed: Pulse Exam of Foot Juan Humphreys MD completed EKG Juan Humphreys MD complet ed SNOMED-CT: 700418858 892235 Current Medications Documented Juan Humphreys MD completed SNOMED-CT: 43210954 Physical Exam, Performed: Pulse Exam of Foot Juan Humphreys MD completed EKG Juan Humphreys MD complet ed SNOMED-CT: 632866375 454370 Current Medications Documented Juan Humphreys MD completed SNOMED-CT: 306207078 711862 Current Medications Documented Juan Humphreys MD completed SNOMED-CT: 396020373 Smoking Cessation Counseling Juan Humphreys MD completed SNOMED-CT: 71238775 Physical Exam, Performed: Pulse Exam of Foot Juan Humphreys MD completed VINCENTG Juan Humphreys MD complet ed SNOMED-CT: 487818497 006757 Current Medications Documented Juan Humphreys MD completed SNOMED-CT: 879768828 Smoking Cessation Counseling Juan Humphreys MD completed SNOMED-CT: 98274714 Physical Exam, Performed: Pulse Exam of Foot Juan Humphreys MD completed EKG Juan Humphreys MD complet ed SNOMED-CT: 956845208 517433 Current Medications Documented Juan Humphreys MD completed Event Monitor Juan Humphreys MD comp leted SNOMED-CT: 351355060 Smoking Cessation Counseling uJan Humphreys MD completed SNOMED-CT: 06052287 Physical Exam, Performed: Pulse Exam of Foot Juan Humphreys MD completed EKG Juan Humphreys MD complet ed SNOMED-CT: 859885975 559321 Current Medications Documented Juan Humphreys MD completed
--- OUTSIDE RECORDS SUMMARY | 2024-08-25 00:40 | XMS_ITS | Clinical Summary ---
Author Organization [facility] Address [address], [address] [address] Phone Care Team Providers Care Blade Changer Name Role Phone Fantasma Mckeon Primary Care Provider [phone] Allergies No known active allergies Medications metoprolol [...] Comments Blood Pressure 140/76 04/14/2020 2:25 PM PRESTRESSED CONCRETE LABORER Pulse 79 04/14/2020 2:25 PM PRESTRESSED CONCRETE LABORER Temperature 36.5 C (97.7 F) 04/14/2020 2:25 PM PRESTRESSED CONCRETE LABORER Respiratory Rate 22 04/14/2020 2:25 PM PRESTRESSED CONCRETE LABORER Oxygen Saturation 98% 04/14/2020 2:25 PM PRESTRESSED CONCRETE LABORER Inhaled Oxygen Concentration - - Weight 149.2 kg (329 lb) 04/14/2020 2:25 PM PRESTRESSED CONCRETE LABORER Height 160 cm (5' 3) 04/14/2020 2:25 PM PRESTRESSED CONCRETE LABORER Body Mass Index 58.28 04/14/2020 2:25 PM PRESTRESSED CONCRETE LABORER Plan of Treatment Health Maintenance Due Date Last Done Comments Hepatitis C Virus (HCV) Screening 1978 TdaP Immunization 1978 Hepatitis B Immunization (1 of 3 - 19+ 3-dose series) 1997 SARS-COV-2 Immunization ( season) 2023 12/06/2020, 03/31/2020, 03/10/2020 Influenza Immunization (Seas on Ended) 2024 11/29/2016 Colonoscopy 02/17/2027 02/17/2017 Colorectal Cancer Screening 02/17/2027 Respiratory Syncytial Virus (RSV) Immunization (Adult) (1 - 1-dose 75+ series) 2053 02/17/2017 Human Papillomavirus (HPV) Immunization Aged Out No longer eligible b ased on patient's age to complete this topic Meningococcal Immunization (ACWY) Aged Out No longer eligible b ased on patient's age to complete this topic Pneumococcal Immunization Combined Aged Out No longer eligible b ased on patient's age to complete this topic Rotavirus Immunization Aged Out No lo nger eligible based on patient's age to complete this topic [place] Care Teams Blade Changer Relationship Specialty Start Date End Date Fantasma Mckeon PA [address] [place] [address] PCP - General Physician Signing Agent 12/17/16
--- NOTE | 2024-08-25 06:59 | WPDANESEPPF ---
Anes - Initial Pre Proc Eval Procedure: Operation Date: 08/25/24 09:00 Proposed Procedures p Robotic Assisted Hysterectomy with Right Oophorectomy - Altaf Prasad MD Date/Time: 08/25/24 06:59 Surgeon: Altaf Prasad MD Pre Op Diagnosis: menorrhagia Patient Data Age: 44 Gender: F Height: 1.6 m Weight: 117 kg Allergies Allergy/AdvReac Type Severity Reaction Status Date / Time No Known Allergies Allergy Verified 08/19/24 10:52 Home Medications ?Medication ?Instructions ?Recorded ?Confirmed ?Type metoprolol succinate 50 mg 50 mg PO DAILY 04/25/23 08/19/24 History tablet,extended release 24 hr omeprazole 40 mg capsule,delayed 40 mg PO DAILY 04/25/23 08/19/24 History release venlafaxine 150 mg 150 mg PO DAILY 05/19/23 08/19/24 History capsule,extended release 24 hr estradiol 2 mg tablet 2 mg PO DAILY 08/19/24 08/19/24 History ferrous sulfate 325 mg (65 mg 325 mg PO DAILY 08/19/24 08/19/24 History iron) tablet (FeroSul) xwcebo-biakufhk-qzvobdq 1 cap PO QID 08/19/24 08/19/24 History 40,000-126,000-168,000 unit capsule, delay rel (Zenpep) tirzepatide 12.5 mg/0.5 mL 12.5 mg subcut WEEKLY 08/19/24 08/19/24 History subcutaneous pen injector (Mounjaro) topiramate 25 mg tablet 25 mg PO DAILY 08/19/24 08/19/24 History Patient hx anesthesia problems: post op nausea/vomiting Family hx anesthesia problems: none Results Review: All pre-operative results and documents have been reviewed as part of the pre-operative evaluation. [facility] Past Medical History Medical History Acute arthritis Anxiety Bilateral hand pain Counseling on health promotion and disease prevention Diabetes Generalized osteoarthritis of multiple sites GERD (gastroesophageal reflux disease) Headache Hyperlipidemia IBS (irritable bowel syndrome) Seronegative rheumatoid arthritis of both hands Surgical History Surgical History H/O breast surgery Family History Family History Other Cerebrovascular accident Depression Diabetes mellitus Heart disease Hypertension Social History Social History Smoking status: Never smoker Second hand tobacco smoke exposure: Yes Alcohol intake: never Substance use: never Substance use type: does not use Do You Feel Safe in your Home?: Yes Lack of Transportation: No Lack of Food: Never True Current Housing: I Have Housing Concerned About Future Housing: No Difficulty Paying Gas/Electric Bills: No Difficulty Paying for Meds: No Currently Unemployed: No Education: Decline to Answer Difficulty w/ Childcare or Family Care: No Living arrangements: alone Spiritual care concerns: No Anes - Eval Final PreProcedure Day of Procedure 08/25/24 06:59 Patient weight: morbidly obese Heart: regular rate and rhythm Lungs: clear to auscultation Airway: Mallampati scale class III Neurological: alert and oriented Last oral intake: >/= 8 hours ASA classification: III Emergent: no Anesthetic plan: proceed Anesthesia type and monitoring: general ETT and standard monitoring Results Review: All pre-operative results and documents have been reviewed as part of the pre-operative evaluation. Informed Consent: The patient's anesthetic plan and its attendant risks and benefits were discussed with the patient/family/POA. Questions were solicited and answers provided to the satisfaction of the patient/family/POA.
[2024-08-25] MEDS: LACTATED RINGERS 1,000 ML 30 ML IV CONT ×2 (07:20→11:44)
[2024-08-25 07:28] LABS: Glucose Point of Care 86 mg/dl (65-105)
[2024-08-25] MEDS: ACETAMINOPHEN 500 MG TABLET 1000 MG PO ×3 (07:30→23:05)
[2024-08-25] MEDS: KETOROLAC 15 MG/ML VIAL (*BKC) IV PUSH (07:30)
[2024-08-25] MEDS: SCOPOLAMINE 1 MG PATCH 1 PATCH TRANSDERM (07:55)
[2024-08-25 08:10] LABS: BEDSIDEPREGUCG Negative (Negative)
--- NOTE | 2024-08-25 08:29 | WPDHPUPDATE1 ---
History and Physical Update Update Date/Time: 08/25/24 08:29 History and Physical has been reviewed, including an updated exam of the patient. There are NO changes in the patient's condition. Risks, benefits, and alternatives have been discussed and questions answered. Patient agrees to proceed with procedure.
[2024-08-25] MEDS: ceFAZolin 2 GM/D5W 50 ML 2 GM/50 ML BAG IVPB (08:47)
[2024-08-25] MEDS: ceFAZolin SODIUM 1 GM VIAL (09:23)
--- NOTE | 2024-08-25 11:34 | S_PTH ---
PATIENT: Radha Dill LOC: [facility] U#:[id number] AGE/SX: 44/F ROOM: RE08/25/[address]: Altaf Prasad MD : 1980 BED: DIS: 08/26/2024 SPEC #: [id number] RECD: 08/25/24 12:52 STATUS: YESSI RECarl #: [id number] LEVI: 08/25/24 11:[address]: Altaf Prasad DEPT: [facility] Surgical RECD BY: Richa Zafar Tissues: A - Uterus Procedures: Hematoxylin and Eosin Stain Gross and Microscopic Level 5
--- NOTE | 2024-08-25 11:59 | W.PM.PROC2 ---
Procedure Note - Detailed Date of Procedure 08/25/24 Pre-op Diagnosis menorrhagia Post-op Diagnosis Same Procedure Performed Robot assisted Total hysterectomy with right oophorectomy Surgeon Altaf Prasad MD Anesthesia General Indications heavy vaginal bleeding, pelvic pain Findings normal-appearing uterus, ovaries, and left tube, right tube was partially resected. Some scarring over the posterior cul-de-sac peritoneum. Description of Procedure This patient was taken to the operating room. She was prepped and draped in the dorsal lithotomy position after induction of general anesthesia. The uterine manipulator and Nick cup were placed. This was done with a speculum and tenaculum. The speculum was placed. The cervix was grasped with a tenaculum. The stay sutures were placed at 3 and 9:00 a.m.. The stay sutures of 0 Vicryl were tied to the appropriately Size scope after it was slipped around the cervix.. The tip of the DRE manipulator was placed in the intrauterine cavity. The cup was slid into place around the cervix and into the fornices. It was locked into place. The sutures were then wrapped around the handle and tied under tension. A 8 mm skin incision was made in the left upper quadrant the abdomen. a 5 mm Visiport trocar was inserted into abdominal cavity and pneumoperitoneum was achieved. A 8 mm supraumbilical incision was made and a 8 mm trocar was inserted into the intrauterine cavity under direct visualization of the scope. an 8 mm incision was made in the right upper quadrant of the abdomen and an 8 mm robotic trocar was placed the inter uterine cavity under direct visualization the scope. An 11 mm trocar was inserted in the right upper quadrant of the abdomen rectal is a cystoscope after an incision was made there as well. The robot was docked. Electronic Orientation of the robot was performed. Bilateral ureteral lysis was performed. This was done from the pelvic brim down to the uterine artery. This was done with careful dissection using sharp and blunt dissection. Right ovary was removed. It was cauterized at the area of the infundibulopelvic ligament. This was done with LigaSure cautery. The paraovarian tissue was cauterized transected stepwise fashion around the ovary. The suspensory ligament the ovaries cauterized transected. The ovary was placed in the posterior cul-de-sac and would later be placed in open vagina after removal of the uterus. In a stepwise fashion along the lateral aspects of the uterus the round ligament and broad ligaments were cauterized transected down to the level of the uterine arteries. A bladder flap was created in the bladder was moved distally to the end of the cervix and over the Nick cup. The bilateral uterine arteries were cauterized and transected. Colpotomy was then performed. In a circumferential fashion the vagina was transected using unipolar cautery. The incision was made down on the Nick cup. The uterus and cervix were taken out through the vagina. A pneumo occluder was placed in the vagina. The vaginal cuff was closed with a 0 V lock suture in a running fashion. The pelvis was irrigated with copious amounts antibiotic irrigation. The ureters were again examined and found to be intact and flowing freely under the uterine arteries into the bladder. The bladder was intact. It was examined directly. Cystoscopy was performed after administration of methylene blue. The cystoscope was inserted. Bladder was distended with fluid. The ureteric meatus was observed bilaterally. Blue fluid was seen to egress bilaterally. The bladder was drained and the cystoscope was withdrawn. The vagina was irrigated with Betadine solution after removal of the Pneumo occluder. the trocars were removed after the robot was undocked. The skin was closed with subacute or Dermabond. The patient was taken to recovery room. She was stable condition. Sponge lap and needle counts were correct x2. Estimated Blood Loss 125 Urine Output 800 Drains Yes Packing No Pathology Yes Complications No immediate complications Condition Stable Disposition Floor
[2024-08-25 12:49] LABS: Glucose Point of Care 108 mg/dl (65-105)
--- NOTE | 2024-08-25 13:21 | ADMGEN ---
This patient, Radha Dill, was admitted to OB 2nd Floor Room 278-00. Patient/family oriented to hospital policies and general routines including ID bracelet, bed and alarms, visiting hours, pain management, procedures, bathroom and other care routines, personal items, smoking policy, room service/diet, and visiting hours. Information on how to activate the Rapid Response Team has been discussed. Patient/Family are encouraged to report perceived risks to care and to ask questions if they do not understand what they are told or what they should do.
[2024-08-25] MEDS: ONDANSETRON INJ 4 MG/2 ML VIAL IV PUSH (15:22)
[2024-08-25] MEDS: oxyCODONE HCL (*CRX) 5 MG TAB IR PO ×2 (16:35→21:25)
[2024-08-25] MEDS: DOCUSATE SODIUM 100 MG CAPSULE PO (17:01)
[2024-08-25] MEDS: SIMETHICONE 80 MG TAB.CHEW PO (17:01)
[2024-08-25] MEDS: KETOROLAC 30 MG/ML VIAL (*BKC) IV PUSH ×2 (17:01→23:05)
[2024-08-25] MEDS: PANTOPRAZOLE 40 MG TABLET PO (21:25)
[2024-08-26 00:12] VITALS: BP 112/64; PULSE 81; RESP 18; TEMP 36.7; O2SAT 96
[2024-08-26 04:27] VITALS: BP 117/69; PULSE 82; RESP 19; TEMP 36.8; O2SAT 99
[2024-08-26] MEDS: ACETAMINOPHEN 500 MG TABLET 1000 MG PO (04:55)
[2024-08-26] MEDS: KETOROLAC 30 MG/ML VIAL (*BKC) IV PUSH (04:55)
--- NOTE | 2024-08-26 07:22 | P.PNOB_ITS ---
CHEMICAL RESEARCH TECHNICIAN - A/P Postoperative Procedures: Procedures Operation Date: 08/25/24 09:00 Actual Procedure Side Surgeon p Robotic Assisted Hysterectomy with Right Oophorectomy Altaf Prasad MD Postoperative day: 1 Postoperative status: doing well Postoperative plan: see orders Time Spent With Patient Time: Total time spent is greater than 50% in coordination of care (as documented) at patient's floor/unit and/or counseling patient: Time with patient: less than 15 minutes CHEMICAL RESEARCH TECHNICIAN- PN:Subj Post-Op Subjective Date/time seen: 08/26/24 07:22 Subjective: patient reports feeling better, patient has no complaints and pain is well controlled Exam Const: General: healthy appearing, comfortable and no acute distress Resp: Auscultation: clear to auscultation bilaterally, no rales, no rhonchi and no wheezes Cardio: Rate: regular rate Heart sounds: no click, no murmurs and no rubs GI: Inspection: non-distended Auscultation: normal bowel sounds Extrem: General: normal to inspection, no pedal edema and no calf tenderness CHEMICAL RESEARCH TECHNICIAN - PN: Obj Data Vital Signs Vital Signs: Vital Signs - 24 hr 08/25/24 11:44 08/25/24 11:55 08/25/24 11:57 Temperature 97.7 F Pulse Rate 80 86 87 Respiratory Rate 22 H 24 H 17 Blood Pressure 130/77 133/90 Pulse Oximetry 100 94 100 Oxygen Delivery Simple Face Mask Simple Face Mask Simple Face Mask Oxygen Flow Rate 15 12 15 08/25/24 12:00 08/25/24 12:15 08/25/24 12:30 Temperature Pulse Rate 88 85 82 Respiratory Rate 17 15 16 Blood Pressure 122/51 L 106/70 126/74 Pulse Oximetry 100 100 95 Oxygen Delivery Simple Face Mask Simple Face Mask Room Air Oxygen Flow Rate 10 10 08/25/24 12:45 08/25/24 13:00 08/25/24 13:30 Temperature 98.4 F Pulse Rate 80 82 78 Respiratory Rate 14 15 16 Blood Pressure 139/84 137/88 146/84 H Pulse Oximetry 100 95 96 Oxygen Delivery Room Air Room Air Oxygen Flow Rate 08/25/24 13:30 08/25/24 16:20 08/25/24 16:20 Temperature 98.4 F Pulse Rate 79 Respiratory Rate 16 Blood Pressure 148/96 H Pulse Oximetry 99 Oxygen Delivery Room Air Room Air Oxygen Flow Rate 08/25/24 18:45 08/25/24 19:48 08/26/24 00:12 Temperature 98.4 F 98.5 F 98.1 F Pulse Rate 92 88 81 Respiratory Rate 18 18 18 Blood Pressure 138/85 131/70 112/64 Pulse Oximetry 97 97 96 Oxygen Delivery Oxygen Flow Rate 08/26/24 04:27 Temperature 98.2 F Pulse Rate 82 Respiratory Rate 19 Blood Pressure 117/69 Pulse Oximetry 99 Oxygen Delivery Oxygen Flow Rate Intake/Output Intake/Output: Intake & Output 08/23/24 08/24/24 08/25/24 08/26/24 23:59 23:59 23:59 23:59 Intake Total 1450 550 Output Total 1490 Balance -40 550 Meds/Results Medications: Active Medications Generic Name Dose Route Start Last Admin Trade Name Freq PRN Reason Stop Dose Admin Acetaminophen 1,000 mg 08/25/24 18:00 08/26/24 04:55 Acetaminophen 500 Mg Tablet PO 1,000 mg Q6HR MAKI Administration Docusate Sodium 100 mg 08/25/24 17:00 08/25/24 17:01 Docusate Sodium 100 Mg Capsule PO 100 mg BID MAKI Administration Estradiol 2 mg 08/26/24 09:00 Estradiol 1 Mg Tablet PO DAILY [facility] Ferrous Sulfate 325 mg 08/26/24 09:00 Ferrous Sulfate [address] BY MOUTH DAILY [facility] Ibuprofen 600 mg 08/26/24 12:00 Ibuprofen 600 Mg Tablet PO Q6HR [facility] Metoprolol Succinate 50 mg 08/26/24 09:00 Metoprolol Succinate Ext Rel 50 Mg Tabcr PO DAILY [facility] Naloxone HCl 0.1 mg 08/25/24 13:21 Naloxone Hcl 0.4 Mg/Ml Vial IV PUSH Q2M PRN Respiratory rate less than 10 Ondansetron HCl 4 mg 08/25/24 13:21 08/25/24 15:22 Ondansetron Inj 4 Mg/2 Ml Vial IV PUSH 4 mg Q6H PRN Administration Nausea And Vomiting Oxycodone HCl 5 mg 08/25/24 13:21 08/25/24 21:25 Oxycodone Hcl (*Crx) 5 Mg Tab Ir PO 5 mg Q4H PRN Administration Pain Rated 4-6 Oxycodone HCl 10 mg 08/25/24 13:21 Oxycodone Hcl (*Crx) 5 Mg Tab Ir PO Q6H PRN Pain Rated 7-10 Pantoprazole Sodium 40 mg 08/25/24 21:00 08/25/24 21:25 Pantoprazole 40 Mg Tablet PO 40 mg Q12HR MAKI Administration Simethicone 80 mg 08/25/24 17:00 08/25/24 17:01 Simethicone 80 Mg Tab.Chew PO 80 mg TIDWM MAKI Administration Topiramate 25 mg 08/26/24 09:00 Topiramate 25 Mg Tablet PO DAILY [facility]KI Venlafaxine HCl 150 mg 08/26/24 09:00 Venlafaxine Hcl Xr 75 Mg Cap.Er.24h PO DAILY [facility] Labs Labs: Laboratory Results - last 24 hr 08/25/24 08/25/24 08/25/24 07:00 07:25 12:47 POC Capillary Glucose 86 108 H POC Urine HCG, Qual Negative
[2024-08-26] MEDS: TOPIRAMATE 25 MG TABLET PO (08:00)
[2024-08-26] MEDS: PANTOPRAZOLE 40 MG TABLET PO (08:00)
[2024-08-26] MEDS: DOCUSATE SODIUM 100 MG CAPSULE PO (08:00)
[2024-08-26] MEDS: VENLAFAXINE HCL XR 75 MG CAP.ER.24H 150 MG PO (08:00)
[2024-08-26] MEDS: FERROUS SULFATE 325 MG TABLET DR BY MOUTH (08:00)
[2024-08-26] MEDS: SIMETHICONE 80 MG TAB.CHEW PO (08:00)
[2024-08-26 08:32] VITALS: BP 112/63; PULSE 85; RESP 16; TEMP 36.8; O2SAT 100
== END 2024-08-26 08:41 | disposition home or self-care (01) ==
LOC: ANHSURGERY 12:43 → ANHOB2 13:25
PROVIDERS: Visit Provider Obstetrics & Gynecology
PROC: (CPT 58571; principal; 2024-08-25 09:00)
DX: N92.0 Excessive and frequent menstruation with regular cycle (principal); R10.2 Pelvic and perineal pain; N85.8 Other specified noninflammatory disorders of uterus; E11.9 Type 2 diabetes mellitus without complications; E66.01 Morbid (severe) obesity due to excess calories; Z68.42 Body mass index [BMI] 45.0-49.9, adult
CPT/HCPCS: 58571; S2900; 82948; 88307; 99199; A9270; J0690; J1100; J1200; J1885; J2250; J2405; J2704; J3010; J7030; J7120; Q9968

== ENCOUNTER 2024-10-05 16:42 | Emergency (ER) | payer OTHER, SELFPAY ==
--- NOTE | ~2024-10-05 | XR_ITS ---
EXAMINATION: XR knee LT 3V, XR tibia fibula LT 2V, XR foot LT min 3V DATE: 10/05/2024 17:15 INDICATION: Pain and bruising at the left lower leg post fall 2 weeks prior TECHNIQUE: 1. AP, lateral and sunrise views of the left knee were obtained 2. AP and lateral views of the left lower leg were obtained on overlapping cranial and caudal images. 3. Dorsal plantar, lateral and 2 oblique views of the left foot were obtained. COMPARISON: None FINDINGS: Alignment is normal from the left knee through the foot. No fracture. Mild polyarticular osteoarthri tis including in all 3 compartments of the left knee, at the left ankle and multiple joints in the le ft foot. Heterotopic ossicles near the tip the medial and lateral malleoli likely sequela of chronic ankle sprains. Moderate-sized Achilles and plantar calcaneal spurs with additional small enthesophyte at the proximal pole of the patella. Soft tissues are unremarkable with no left knee or ankle joint effusions. IMPRESSION: 1. Mild polyarticular osteoarthritis at the left knee, foot and ankle. No acute osseous abnormality. Reviewed, dictated and finalized at location A. IMPRESSION: 1. Mild polyarticular osteoarthritis at the left knee, foot and ankle. No acute osseous abnormality. IMPRESSION: 1. Mild polyarticular osteoarthritis at the left knee, foot and ankle. No acute osseous abnormality.
--- OUTSIDE RECORDS SUMMARY | 2024-10-05 16:45 | XMS_ITS | Clinical Summary ---
Author Organization [facility] Address [address], [address] [address] Phone Care Team Providers Care Crucible Packer Name Role Phone Fantasma Mckeon Primary Care Provider Allergies No known active allergies Medications metoprolol [...] Comments Blood Pressure 140/76 04/14/2020 2:25 PM DIRECTOR OF HOSPITALITY Pulse 79 04/14/2020 2:25 PM DIRECTOR OF HOSPITALITY Temperature 36.5 C (97.7 F) 04/14/2020 2:25 PM DIRECTOR OF HOSPITALITY Respiratory Rate 22 04/14/2020 2:25 PM DIRECTOR OF HOSPITALITY Oxygen Saturation 98% 04/14/2020 2:25 PM DIRECTOR OF HOSPITALITY Inhaled Oxygen Concentration - - Weight 149.2 kg (329 lb) 04/14/2020 2:25 PM DIRECTOR OF HOSPITALITY Height 160 cm (5' 3) 04/14/2020 2:25 PM DIRECTOR OF HOSPITALITY Body Mass Index 58.28 04/14/2020 2:25 PM DIRECTOR OF HOSPITALITY Plan of Treatment Health Maintenance Due Date Last Done Comments Hepatitis C Virus (HCV) Screening 1980 TdaP Immunization 1978 Hepatitis B Immunization (1 of 3 - 19+ 3-dose series) 1997 Pap Smear 1999 Cervical Cancer Screening (CCS) 2008 HPV/Cotest 2008 Cologuard 2023 Immunochemical Fecal Occult Blood 2023 SARS-COV-2 Immunization ( season) 2023 12/06/2020, 03/31/2020, 03/10/2020 Influenza Immunization (#1) 2024 11/29/2016 Colonoscopy 02/17/2027 02/17/2017 Colorectal Cancer Screening 02/17/2027 Respiratory Syncytial Virus (RSV) Immunization (Adult) (1 - 1-dose 75+ series) 2053 Human Papillomavirus (HPV) Immunization Aged Out No [...] patient's age to complete this topic Insurance Care Teams Crucible Packer Relationship Specialty Start Date End Date Fantasma Mckeon PA [address] [place] [id number] PCP - General Physician Bee Rancher 12/17/16
--- OUTSIDE RECORDS SUMMARY | 2024-10-05 16:45 | XMS_ITS | Data Portability ---
Author Organization [facility] [place] Address [address] [place] [address] [place] [address] Care Team Providers Care Rn Maternity Name Role Phone ANABELLEAZRA Primary Care Provider [phone] Assessment No assessment recorded. Plan of Treatment Reminders Order Date Submit Date Provider Last Modified By Organization Details Last Modified Time Details Appointments U/S F/U 2024 10:00A Cecil CORNELL MD Not available Not available Not available Lab None recorded. Referral None recorded. Procedures None recorded. Surgeries None recorded. Imaging US, pelvis 2024 025 [email or web address] [place], [address], [place], [address], 09/28/2024 20:32:47 US, transvagi nal 2024 025 [email or web address] [place], [address], [place], [address], 09/28/2024 20:32:47 Medication Orders None recorded. Patient TargetsNo targets recorded. Patient InstructionsNo instructions recorded. Reason for Referral None Reported. Results Created Date Observation Date Name Description Value Unit Range Abnormal Flag Note LastModifiedBy Organization Detail LastModifiedTime 09/29/19 25 09/28/2024 US, skyler s No observ ation record ed. [email or web address] [place] [address], [place], [address], 09/28/2024 18:02:56 09/29/19 25 09/28/2024 US, trans vagin al No observ ation record ed. [email or web address] [place] [address], [place], [address], 09/28/2024 18:03:05 09/29/19 25 09/28/2024 US, pelvi s No observ ation record ed. [email or web address] [address], [place], [address], 09/28/2024 20:56:08 Result Notes None recorded. Problems Name Problem SNOMED Code Status Onset Date Resolution Date Notes Provider Name and Address Organization Details Recorded Time Irritable bowel syndrome 43607293 Active 2022 Azra Watson MD [address], [place], [address], [facility] 3 21:38:58 Rheumatoid arthritis 56355652 Active 2023 Clarisa joyce, [facility] 4 09:40:29 Diabetes mellitus 72911033 Active 2023 Clarisa joyce, [facility] 4 09:40:35 Hypertensive disorder 04723067 Active 2023 Clarisa joyce, [facility] 4 09:40:45 Problem Notes None recorded. Procedures Surgical History Date Name Laterality Status Provider Name and Address Organization Details Recorded Time 08/26/19 25 ROBOTIC ASSISTED HYSTERECTOMY W/BILATERAL SALPINGO-OOPHORE CTOMY (SURG) completed Yazmin Painter [facility] 08/26/2024 11:58:35 06/08/19 25 Date of Last Pap Smear completed Yazmin Painter [facility] 06/29/2024 09:38:29 05/23/19 25 Date of Last Mammogram completed Rachel Begum [facility] 06/07/2024 09:10:49 05/27/19 24 laparoscopic salpingo-oophore ctomy completed [facility] 06/03/2023 09:43:16 04/09/19 23 completed [facility] 05/15/2022 14:36:13 04/09/19 23 Date of Last Colonoscopy completed [facility] 05/15/2022 14:36:13 03/24/19 22 Colonoscopy completed [facility] 06/03/2023 09:41:28 03/24/18 96 Breast Biopsy completed [facility] 06/03/2023 09:41:20 Imaging Results None [...] Available Not Available trazodone 50 mg tablet 09/01 completed Not Available Not Available Not Available fluconazole 150 mg tablet 06/29 completed Not Available Not Available Not Available metoprolol succinate ER 50 mg tablet,exte nded release 24 hr TAKE 1 TABLET BY MOUTH TWICE DAILY IF SYMPTOMAT IC OTHERWISE TAKE 1 TABLET DAILY active Not Available Not Available No t Available hydrocodone 5 mg-acetamin ophen 325 mg tablet TAKE 1 TABLET BY MOUTH EVERY 4 HOURS NEEDED FOR PAIN 09/21 completed Not Available Not Available Not Available meloxicam 15 mg tablet TAKE 1 TABLET BY MOUTH DAILY NEEDED FOR PAIN 06/07 completed Not Available Not Available Not Available sucralfate 1 gram tablet TAKE ONE TABLET BY MOUTH EVERY DAY BEFORE MEALS FOR FOURTEEN DAYS 02/22 /2023 completed Not Available Not Available Not Available [...] Available Not Available Not Available amoxicillin 875 mg-potassiu m clavulanate 125 mg tablet TAKE 1 TABLET [...] Not Available Not Available Not Available Mounjaro 15 mg/0.5 mL subcutaneou s pen injector ADMINISTE R 15 MG UNDER THE SKIN EVERY 7 DAYS active Not Available Not Available No t Available Mounjaro 10 mg/0.5 mL subcutaneou s pen injector ADMINISTE R 10 MG UNDER THE SKIN EVERY 7 DAYS 08/11 completed Not Available Not Available Not Available Mounjaro 12.5 mg/0.5 mL subcutaneou s pen injector ADMINISTE R 12.5 MG UNDER THE SKIN EVERY 7 DAYS 09/21 completed Not Available Not Available Not Available Ozempic 0.25 mg or 0.5 mg (2 mg/3 mL) subcutaneou s pen injector INJECT 0.5 MG EVERY WEEK SUBCUTANE IOUS ROUTE DIRECTED FOR 28 DAYS 06/02 completed Not Available Not Available Not Available Vitals Date Recorded Body height Body mass index (BMI) Body weight Systolic And Diastolic Provider Name and Address Organization Details Last Updated DateTime 08/11/2024 162.56 cm 44.5 kg/m2 037480.42 g 114/79 mm[Hg] [facility] 08/11/2024 16:46:17 Date Recorded Body height Body mass index (BMI) Body weight Systolic And Diastolic Provider Name and Address Organization Details Last Updated DateTime 09/01/2024 162.56 cm 44.1 kg/m2 884623.24 g 137/83 mm[Hg] [facility] 09/01/2024 14:08:38 Date Recorded Body height Body mass index (BMI) Body weight Systolic And Diastolic Provider Name and Address Organization Details Last Updated DateTime 09/21/2024 162.56 cm 44.3 kg/m2 426193.83 g 111/74 mm[Hg] [facility] 09/21/2024 12:52:16 Social History Question Answer Notes LastModified by Organizat ion Details LastModified Time Tobacco Smoking Status Never Smoker Rachel Begum maria del carmen, [facility] 03/28/2023 15:21:57 Are You Blind Or [...] Or The Highest Degree You Have Received? [id number] Information not available 05/15/2022 Are There Any [...] Have Difficulty Walking Or Climbing Stairs? No [email or web address] Information not available 03/28/2023 Sex: Unknown Functional Status Question Answer Note LastModified by Organizat ion Details LastModified Time Do you use any illicit or recreational drugs? No Information not available 05/15/2022 What is your level of alcohol consumption? None Information not available 05/15/2022 Are you able to walk? YESWOREST Information not available 05/15/2022 Are you able to care for yourself? 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 No [email or web address] Information not available 03/28/2023 What is your exercise level? Occasional Information not available 05/15/2022 Mental Status Question Answer Note LastModified by Organization D etails LastModified Time Do you feel stressed (tense, restless, nervous, or anxious, or unable to sleep at night)? [id number] Information not available 05/15/2022 Family History Relationship Description Onset Age of this Age Resolved Age Notes LastModified by Organization Details LastModified Time Paternal Grandfather Heart disease [email or web address] Not available 06/02 09:39:25 Maternal Grandmother Myocardial infarction [email or web address] Not available 05/22 09:39:25 Maternal Grandmother Hypertensive disorder [email or web address] Not available 06/02 09:39:25 Maternal Grandmother Heart disease [email or web address] Not available 06/02 09:39:25 Maternal Grandmother Diabetes mellitus [email or web address] Not available 06/02 09:39:25 Mother Hypercholest erolemia [email or web address] Not available 06/02 09:39:25 Mother Disorder of lung [email or web address] Not available 06/02 09:39:25 Mother Hypertensive disorder [email or web address] Not available 06/02 09:39:25 Mother Diabetes mellitus [email or web address] Not available 06/02 09:39:25 Paternal Grandmother Hypercholest erolemia [email or web address] Not available 06/02 09:39:25 Paternal Grandmother Myocardial infarction [email or web address] Not available 05/22 09:39:25 Paternal Grandmother Cerebrovascu lar accident [email or web address] Not available 09:39:25 Paternal Grandmother Hypertensive disorder [email or web address] Not available 06/02 09:39:25 Paternal Grandmother Heart disease [email or web address] Not available 06/02 09:39:25 Paternal Grandmother Diabetes mellitus [email or web address] Not available 06/02 09:39:25 Maternal Aunt Myocardial infarction [email or web address] Not available 05/22 09:39:25 Maternal Aunt Malignant neoplasm of uterus Not available 06/02 09:39:25 Maternal Aunt Diabetes mellitus [email or web address] Not available 06/02 09:39:25 Father Hypercholest erolemia [email or web address] Not available 06/02 09:39:25 Maternal Grandfather Myocardial infarction [email or web address] Not available 05/22 09:39:25 Maternal Grandfather Heart disease [email or web address] Not available 06/02 09:39:25 Maternal Grandfather Diabetes mellitus [email or web address] Not available 06/02 09:39:25 Paternal Aunt Hypercholest erolemia Not available 06/02 09:39:25 Paternal Aunt Malignant tumor of cervix [email or web address] Not available 06/02 09:39:25 Paternal Aunt Malignant neoplasm of uterus [email or web address] Not available 06/02 09:39:25 Paternal Aunt Diabetes mellitus [email or web address] Not available 06/02 09:39:25 Paternal Uncle Disorder of lung [email or web address] Not available 06/02 09:39:25 Paternal Uncle Malignant neoplasm of lung [email or web address] Not available 08/22 13:10:50 Paternal Uncle Malignant tumor of colon [email or web address] Not available 06/02 09:39:25 Medical History Condition [...] of Flow (days) 6 Current Control Method Hysterectom y Are cycles usually normal N Frequency of [...] SNOMED-CT Code Diagnosis ICD10 Code Diagnosis Note [id number] DIRK Varner [place] [address] [address] 05/15/2022 14:22:41 05/15/2022 15:59:40 Screening for malignant neoplasm of breast 099961520 Z12.39 Gynecologi c examination 90130333 Z01.419 Suggested Calcium with Vitamin D 1200-1500m g daily. Patient advised to get an annual flu shot in the fall and she could obtain at [facility] or [facility]. Also to obtain TDap vaccinatio n if [...] Jose hx of abnormal paps, last pap 2016pap doneSTI testing declinedMa mmogram order given to [...] of plan of care. Cyst of ovary 74023386 N 83.209 [id number] MD Rose Mary [place] [address],[place] [address] 05/22/2022 10:48:23 05/22/2022 14:50:03 Cyst of ovary 68240457 N83.209 [id number] MD Rose Mary [place] [address],[place] [address] 05/29/2022 11:46:34 06/03/2022 16:19:39 Cyst of left ovary 7154001949 9288334 N83.202 [id number] MD Alexis [place] [address],[place] [address] 05/29/2022 14:44:06 05/29/2022 14:55:19 [id number] MD Alexis [place] [address],[place] [address] 07/10/2022 09:21:34 07/10/2022 10:29:28 Pain in pelvis 25450707 R10.2 N83.299 [id number] Azra Watson MD [place] [address],[facility] [place] [address] 08/06/2022 16:30:52 08/07/2022 10:24:27 Hemorrhagic cyst of ovary 275085414 N83.209 Cyst of left ovary 20047 50360 0417944 N83.202 physiologi c Left lower quadrant pain 009397048 R10.32 [id number] Jessy Barahona [facility] [address],[facility] [place] [address] 02/28/2023 14:02:28 03/05/2023 17:08:16 Cyst of ovary 83288665 N83.[address] scan which [...] and review of plan of care. Menorrhagia 873190384 N9 2.0 Options discussed for heavy menses (including but not limited to various BC methdods/e ndometrial ablation); she will further discuss her goals for her menses during her MD consult. [id number] Altaf Cornell MD [place] [address],[place] [address] 03/14/2023 16:48:36 03/16/2023 09:40:44 Cyst of left ovary 1664553757 6777267 N83.202 R10.2 [id number] Altaf Cornell MD [place] [address],[place] [address] 03/28/2023 15:18:52 03/28/2023 16:28:49 Mass of ovary 494941525 R19.09 Menorrhagia 123713418 N9 2.0 This patient is a 43year-old [...] We made a decision to perform surgery. [id number] Altaf Cornell MD [place] [address] [address] 05/21/2023 16:40:35 05/21/2023 17:30:58 Menorrhagia 356766947 N92.0 Mass of ovary 616909849 R19.09 43-year-ol d female with menorrhagi a and cystic ovarian mass. We have agreed to perform endometria l ablation With hysterosco py and laparoscop ic bilateral salpingect joe with left oophorecto my. she is completed the informed consent process and is ready to proceed. She understand s the risks, benefits, and alternativ es. [id number] Altaf Cornell MD [place] [address] [address] 06/03/2023 09:26:02 06/03/2023 09:51:14 Postoperative care 758956069 Z48.89 this patient is a 43-year-ol d [...] She will go back to work tomorrow. [id number] DIRK Varner [place] [address] [address] 06/07/2024 08:53:41 06/07/2024 11:34:15 Gynecologic examination 48866393 Z01.419 Z11.51 [facility] BSP[facility] - done todaySTI screen - [...] have been answered. Abnormal u terine bleeding 5629226491 9100 N93.9 Discussed recent return of heavy periods s/p endometria l ablationwi ll check labs and pelvic u/sMD u/s f/u scheduled Time spent in visit is a total of 30 mins with at least 50% of visit consisting of counseling and review of plan of care. Menopausal symptom 55101 002 N95.1 [id number] Altaf Cornell MD [place] [address] [address] 06/17/2024 09:19:49 06/17/2024 10:15:50 Abnormal uterine bleeding 6218820781 9100 N93.9 R10.2 [id number] Altaf Cornell MD [place] [address] [address] 06/29/2024 09:19:07 06/29/2024 10:18:36 Abnormal uterine bleeding 6824047017 9100 N93.9 R10.2 Menorrhagia 053453642 N9 2.0 This patient is a 44-year-ol [...] 30 minutes on her care in total. [id number] Altaf Cornell MD [place] [address],[facility] [place] [address] 08/11/2024 16:06:17 08/12/2024 07:03:27 Pain in pelvis 20676010 R10.2 this patient is a 44-year-ol d female with severe pelvic pain. We have agreed to perform total laparoscop ic hysterecto my bilateral salpingo-o ophorectom y. The patient understand s the risks , benefits, and alternativ es. [id number] Altaf Cornell MD [place] [address] [address] 08/25/2024 08:46:18 08/27/2024 10:27:27 [id number] Altaf Cornell MD [place] [address],[facility] [place] [address] 09/01/2024 13:10:41 09/01/2024 14:28:05 Postoperative visit 919666824 Z48.89 female Patient presents for postop follow-up. She is 1 week postop from a total robotic hysterecto my bilateral salpingect joe and uniltat.oo phorectomy . She has no complaints . Her incisions are clean dry and intact. She is recovering normally. She will follow-up as needed. [id number] Altaf Cornell MD [place] [address] [address] 09/21/2024 12:24:51 09/30/2024 10:37:10 Vaginal bleeding 056043519 N93.9 44-year-ol d female presents for vaginal bleeding. She has 3-4 weeks postop from a hysterecto my. She has some vaginal bleeding. The vagina was examined. The vaginal cuff is intact. No active bleeding. She will follow up as needed. [id number] Altaf Cornell MD [place] [address] [address] 09/28/2024 15:18:57 09/28/2024 16:01:03 Pain in pelvis 90585256 R10.2 N93.9 this patient is a 44-year-ol d female [...] Recorded Advance Directives Directive None Recorded Payers Insurance Date Sequence Insurance Name Policy Number Policy Guzman Covered Member ID Guzman Member ID Guarantor Name 09/28/2024 1 [employer] - ALLIED BENEFITS - OPEN ACCESS Radha Dill [id number] Radha Dill 09/28/2024 1 [employer] - DOS PRIOR TO 20 - [facility] B[facility] PL[facility] [id number] Radha Dill [id number] Radha Dill 10/05/2024 1 [employer] (PPO) [id number] Radha Dill [id number] Radha Dill Notes Date Note Type Note Provider Name and Address Organization Details Recorded Time 08/11/2024 text/html this patient is a 44-year-old female with severe pelvic pain. We have agreed to perform total laparoscopic hysterectomy bilateral salpingo-oophorecto my. The patient understands the risks , benefits, [...] is risk of hemorrhage and infection. Altaf Cornell MD [address], [place], [address], [facility] 08/11/2024 19:26:26 09/01/2024 text/html female Patient presents for postop follow-up. She is 1 week postop from a total robotic hysterectomy bilateral salpingectomy and uniltat.oophorectom y . She has no complaints. Her incisions are clean dry and intact. She is recovering normally. She will follow-up as needed. Altaf Cornell MD [address], [place], [address], [facility] 09/01/2024 14:25:02 09/21/2024 text/html 44-year-old fema macey presents for vaginal bleeding. She has 3-4 weeks postop from a hysterectomy. She has some vaginal bleeding. The vagina was examined. The vaginal cuff is intact. No active bleeding. She will follow up as needed. Altaf Cornell MD [address], [place], [address], [facility] 09/27/2024 15:22:22 OBGyn Episode No OBEpisode recorded.
--- OUTSIDE RECORDS SUMMARY | 2024-10-05 16:45 | XMS_ITS | Referral Summary ---
Author Organization [facility] [address] [place] [id number] Care Team Providers Care System Administrator Name Role Phone Ayla Salazar Unavailable Raji Spears MD Unavailable [phone] Altaf Prasad MD Unavailable [phone] Suresh Child MD Primary Care Provi jonelle Encounters Date Type Department Care Team Description 09/03/2024 2:00 PM CDT Office Visit [facility] Gastroenterology at [address] [place] [phone] Silvia Cannon PA Pancreatic insufficiency (Primary Dx); Abdominal cramping; Abdominal bloating; Constipation, unspecified constipation type; Liver fibrosis; Heartburn; Nausea; Irritable bowel syndrome with constipation; Internal hemorrhoids; Diverticulosis 07/20/2024 Results Follow-Up [facility] Gastroenterology at [address] [place] [id number] Silvia Cannon PA RUQ Ultrasound 07/17/2024 9:21 AM CDT - 07/17/2024 11:59 PM CDT Hospital Encounter [facility] [address] [place] [address] Liver fibrosis Discharge Disposition: Discharge to home or self care from Last 3 Months Allergies Active Allergy Reactions Criticality Noted Date Comments Xlyxxnd-Fpf-Pzm Reductase Inhibitors Muscle pain Medium 04/01/2023 Intolerance to atorvastatin and rosuvastatin. Bad cramps Medications ezetimibe (ZETIA) 10 mg tabletIndications :Mixed hyperlipidemia Take 1 tablet (10 mg total) by mouth daily 90 tablet 4 Active traZODone (DESYREL) 50 mg tabletIndications :Other insomnia Take 1 tablet (50 mg total) by mouth nightly as needed for sleep 90 tablet 1 Active venlafaxine XR (EFFEXOR-XR) 150 mg 24 hr capsuleIndication s:PAULINE (generalized anxiety disorder) TAKE 1 CAPSULE BY MOUTH DAILY 90 capsule 3 Active ferrous sulfate (FeroSuL) 325 mg (65 mg of elemental iron) tablet TAKE 1 TABLET BY MOUTH DAILY WITH BREAKFAST 90 tablet 1 Active dicyclomine (BENTYL) 10 mg capsule Take 10 mg-20 mg up to 4 times daily as needed for abdominal cramping 120 capsule Active Additional Information Patient not taking.Reported on 09/03/2024 pancrelipase (Zenpep) 40,000-126,000- 168,000 unit per capsuleIndication s:Pancreatic insufficiency Take 2 capsules with meals and 1 with a snack; up to 8 capsules daily 240 capsule 2 Active omeprazole (PriLOSEC) 40 mg capsule Take 1 capsule (40 mg total) by mouth daily 90 capsule 3 [address] (VOLTAREN) 75 mg EC tablet Take 1 tablet (75 mg total) by mouth 2 (two) times a day 60 tablet Active Additional Information Patient not taking.Reported on 09/03/2024 ondansetron (ZOFRAN) 4 mg tablet Take 1 tablet (4 mg total) by mouth every 8 (eight) hours as needed for nausea or vomiting 21 tablet Active metoprolol XL (TOPROL-XL) 50 mg extended release tablet Take 1 tablet (50 mg total) by mouth daily 90 tablet 1 025 2024 Active estradioL (ESTRACE) 2 mg tablet Take 1 tablet (2 mg total) by mouth daily 04/25/2 025 Active HYDROcodone-aceta minophen (NORCO) 5-325 mg per tablet Take 1 tablet by mouth every 4 (four) hours as needed for pain Active Mounjaro 15 mg/0.5 mL pen injector injectionIndicati ons:Type 2 diabetes mellitus with hyperlipidemia (HCC),Morbid obesity with BMI of 45.0-49.9, adult (HCC) ADMINISTER 15 MG UNDER THE SKIN EVERY 7 DAYS 2 mL 025 Active topiramate (TOPAMAX) 25 mg tabletIndications :Chronic migraine with aura without status migrainosus, not intractable TAKE 1 TABLET(25 MG) BY MOUTH EVERY NIGHT FOR 14 DAYS THEN TAKE 2 TABLETS(50 MG) BY MOUTH EVERY NIGHT 74 tablet 1 025 Active topiramate (TOPAMAX) 25 mg tabletIndications :Chronic migraine with aura without status migrainosus, not intractable Take 1 tablet (25 mg total) by mouth nightly for 14 days, THEN 2 tablets (50 mg total) nightly. 74 tablet 1 025 2024 Discontinued tirzepatide (Mounjaro) 15 mg/0.5 mL pen injector injection Inject 0.5 mL (15 mg total) under the skin every 7 days 2 mL 025 2024 Discontinued Active Problems Problem Noted Date Diagnosed Date [...] [place] Assessment & Plan (04/01/2023 10:47 AM ENVIRONMENTAL DEPARTMENT MANAGER): Chronic. Very well controlled on current regimen. [...] cholesterol. Assessment & Plan (04/01/2023 10:48 AM ENVIRONMENTAL DEPARTMENT MANAGER): Patient reports prior intolerance to both atorvastatin [...] Effexor Assessment & Plan (04/01/2023 10:48 AM ENVIRONMENTAL DEPARTMENT MANAGER): Chronic. Well controlled on current medication. We will continue for now. Brief supportive counseling provided. Monitor Diabetes mellitus, type 2 05/22/2022 Assessment & Plan (09/30/2023 9:20 AM CDT): Chronic. Diabetes is controlled. Obesity needs improvement encouraged healthy diet, exercise, weight loss. Continue current prescription medication Diverticulosis of colon 07/26/2020 Gastroesophageal reflux disease 07/26/2020 Assessment & Plan (04/01/2023 10:42 AM ENVIRONMENTAL DEPARTMENT MANAGER): Chronic. Relatively controlled with omeprazole. Continue. Liver [...] Zetia Assessment & Plan (04/01/2023 10:43 AM ENVIRONMENTAL DEPARTMENT MANAGER): Mild fibrosis on liver biopsy in 2020. 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 Counseled on [...] Dr. Livingston is now with DELVIN/Michaela at [facility] we will go ahead and refer back to her. Pancreatic insufficiency 07/26/2020 Assessment & Plan (09/30/2023 9:19 AM CDT): Chronic. Symptoms controlled with pancrelipase. Continue Assessment & Plan (04/01/2023 10:46 AM ENVIRONMENTAL DEPARTMENT MANAGER): Previously diagnose. Symptoms are relatively controlled as [...] scarring. Liver biopsy done 07/2020 consistent with [id number]-[id number] steatohepatitis with signs of early fibrosis but not cirrhosis. Was recommended diet, exercises, weight loss Assessment & Plan (09/30/2023 9:18 AM CDT): Chronic. Liver enzymes have been normal. Encouraged healthy diet, exercise, weight loss. Monitor liver enzymes. Keep alcohol in moderation Assessment & Plan (04/01/2023 10:43 AM ENVIRONMENTAL DEPARTMENT MANAGER): Diagnosed previously. Counseled on healthy diet, exercise, [...] loss Assessment & Plan (04/01/2023 10:46 AM ENVIRONMENTAL DEPARTMENT MANAGER): Chronic. Diagnosed about 2 years ago at [facility]. Patient reports her last PCP was [...] Continue Arava. Keep upcoming appointment with new market news reporter given her market news reporter left the system Assessment & Plan (04/01/2023 10:44 AM ENVIRONMENTAL DEPARTMENT MANAGER): Chronic. Currently supposed to be on sulfasalazine but not taking consistently. Has been following with Rheumatology, Dr. Spears. He has her on p.r.n. and tramadol and Flexeril as well. Patient has an appointment to establish with new market news reporter next month. We will defer management of autoimmune diseases and tramadol to the market news reporter Scleroderma 07/26/2020 02/17/2024 Assessment & Plan (09/30/2023 9:18 AM CDT): Chronic. Stable. Continue medication and care per Rheumatology. She will be transitioning to market news reporter within our system as the [facility] market news reporter is no longer with the practice Assessment & Plan (04/01/2023 10:45 AM ENVIRONMENTAL DEPARTMENT MANAGER): Patient reports was a very mild case [...] loss Assessment & Plan (04/01/2023 10:45 AM ENVIRONMENTAL DEPARTMENT MANAGER): Chronic. Suboptimally controlled. Has been working on diet, exercise and weight loss. Was seen better weight loss benefit with Mounjaro but had to be switch to Ozempic due to insurance change. We will see if she can tolerate a slightly higher dose of Ozempic for added benefit for the obesity as well as the diabetes. We did counselor education professor side effects and use. If develops significant [...] Never Smokeless Tobacco: Never Tobacco Cessation:Counseling Given: Not Answered Alcohol Use Standard Drinks/Week Comments Never 0 [...] on file Legal Sex Female 1:00 AM ENVIRONMENTAL DEPARTMENT MANAGER Gender Identity Female 04/19/2020 10:14 AM ENVIRONMENTAL DEPARTMENT MANAGER Sexual Orientation Straight 04/19/2020 10 :14 AM ENVIRONMENTAL DEPARTMENT MANAGER Last Filed Vital Signs Vital Sign Reading Time Taken Comments Blood Pressure 107/74 09/03/2024 1:40 PM CDT Pulse 81 09/03/2024 1:40 PM CDT Temperature 36.6 C (97.8 F) 05/13/2024 2:52 PM ENVIRONMENTAL DEPARTMENT MANAGER Respiratory Rate 18 05/13/2024 7:24 AM ENVIRONMENTAL DEPARTMENT MANAGER Oxygen Saturation 98% 09/03/2024 1:40 PM CDT Inhaled Oxygen Concentration - - Weight 115.8 kg (255 lb 3.2 oz) 09/03/2024 1:40 PM CDT Height 162.6 cm (5' 4) 09/03/2024 1:40 PM CDT Body Mass Index 43.8 09/03/2024 1:40 PM CDT Plan of Treatment Not on file Procedures Procedure Name Priority Date/Time Associated Diagnosis Comments US RUQ Schedule Routine, Read Routine (OP Routine) 07/17/2024 9:53 AM CDT Liver fibrosis EGFR Routine 06/03/2024 2:24 PM CDT Liver fibrosis SCREENING MAMMOGRAM BILATERAL W SCOOTER Schedule Routine, Read Routine (OP Routine) 05/22/2024 1:55 PM ENVIRONMENTAL DEPARTMENT MANAGER Screening mammogram, encounter for HEMOGLOBIN A1C Routine 05/10/2024 7:21 AM ENVIRONMENTAL DEPARTMENT MANAGER Type 2 diabetes mellitus with hyperlipidemia (HCC) HEPATITIS C ANTIBODY Routine 02/17/2024 2:19 PM ENVIRONMENTAL DEPARTMENT MANAGER Pain in other joint Positive NOLA (antinuclear antibody) Elevated rheumatoid factor Chronic pain of both knees ALBUMIN CREATININE RATIO, URINE Routine 02/05/2024 12:17 PM ENVIRONMENTAL DEPARTMENT MANAGER Type 2 diabetes mellitus with hyperglycemia, without [...] HM PAP SMEAR WITH HPV Routine 05/15/2022 COLONOSCOPY Routine 04/09/2022 3:50 PM ENVIRONMENTAL DEPARTMENT MANAGER from Last 3 Months or Most Recently [...] stone is noted as per the performing rougher helper. No pericholecystic fluid. Negative sonographic Sidhu sign as per performing rougher helper. BILIARY: Normal common bile duct measures 3 mm in diameter. RIGHT KIDNEY: Normal in size. Measures 10.3 cm. No hydronephrosis IMPRESSION: 1. Borderline hepatic steatosis. 2. Cholelithiasis without sonographic evidence of acute cholecystitis. THIS IS AN ELECTRONICALLY VERIFIED FINAL REPORT 07/19/2024 7:30 AM - Electronically signed by Chito Washburn M.D. AG: DO Report ID: [id number] Reading Location: [id number] Procedure Note Chito Washburn MD - 07/19/2024 [...] mobile stone isnoted as per the performing rougher helper. No pericholecystic fluid. Negative sonographic Sidhu sign as per performing rougher helper. BILIARY: Normal common bile duct measures 3 mm in diameter. RIGHT KIDNEY: Normal in size. Measures 10.3 cm. No hydronephrosis IMPRESSION: 1. Borderline hepatic steatosis. 2. Cholelithiasis without sonographic evidence of acute cholecystitis. THIS IS AN ELECTRONICALLY VERIFIED FINAL REPORT 07/19/2024 7:30 AM - Electronically signed by Chito Washburn M.D. AG: DO Report ID: [id number] Reading Location: [place] [address] us Silvia THOMAS IMG US PROCEDURES Final Result * eGFR (06/03/2024 2:24 PM CDT) eGFR [...] LAB BLOOD ORDERABLES Fin al Result ABRAHAN TellezERIC) 1 [facility] Department [place] [address] * Screening Mammogram Bilateral W Scooter (05/22/2024 1:55 PM ENVIRONMENTAL DEPARTMENT MANAGER) Anatomical Region Laterality Modality Breast Bilateral Mammography 05/23/2024 9:37 PM ENVIRONMENTAL DEPARTMENT MANAGER Impressions 05/23/2024 9:37 PM ENVIRONMENTAL DEPARTMENT MANAGER There is no mammographic evidence to suggest malignancy. The patient may continue screening mammography as per ACR guidelines. FINAL ASSESSMENT: BI-RADS Category 1: Negative. Electronically signed by: Kathia Duncan M.D. Narrative 05/23/2024 9:37 PM ENVIRONMENTAL DEPARTMENT MANAGER EXAMINATION: BILATERAL SCREENING MAMMOGRAM WITH TOMOGRAPHY HISTORY: [...] nodes seen in the axillae or elsewhere. Self Screening Mammogram IMG MAMMO PROCEDURES Fi nal Result * Hemoglobin A1c (05/10/2024 7:21 AM ENVIRONMENTAL DEPARTMENT MANAGER) Hgb A1C 5.3 4.0 - 5.6 % Estimated Average Glucose 105 mg/dL ABRAHAN VELA (ERIC) Comment: The ADA recommends reporting an estimated Average Glucose (eAG) with all Hemoglobin A1c results using the equation derived from a study of 507 normal and diabetic adults. Minority populations were underrepresented and children were not included. (Diabetes Care 31:0247-8593, 2008). The eAG is not equivalent to a fasting glucose. Blood 05/10/2024 7:21 AM ENVIRONMENTAL DEPARTMENT MANAGER 05/10/2024 10:40 AM ENVIRONMENTAL DEPARTMENT MANAGER Suresh Child MD LAB BLOOD ORDERABLE S Final Result ABRAHAN VELA ([place]) 1 [facility] Department [place] [address] * Hepatitis C antibody Blood (02/17/2024 2:19 PM ENVIRONMENTAL DEPARTMENT MANAGER) Pathologist [facility] Hep C Ab Nonreactive Nonreactive Comment: Interpretive [...] revised on 2019. Blood 02/17/2024 2:19 PM ENVIRONMENTAL DEPARTMENT MANAGER 02/17/2024 7:28 PM ENVIRONMENTAL DEPARTMENT MANAGER Analia Ambriz MD LAB MICROBIOLOGY - GENERAL ORDERABLES Final Result ABRAHAN [facility] [address] Department [place] [address] * Albumin Creatinine Ratio, Urine (02/05/2024 12:17 PM ENVIRONMENTAL DEPARTMENT MANAGER) Pathologist [facility] Albumin Ur 22.1 mg/L Comment: Interpretive Data No reference range established. Current interpretive data was last revised 2018. Testing performed by: [facility], [address] [place] [address], [place]., [address] Creatinine Ur 254.3 mg/dL ABRAHAN VELA (ERIC) Comment: Interpretive Data No reference range established. Current interpretive data was last revised 2018. Testing performed by: [facility], [address] [place] [address]., [id number] Albumin Creatinine Ratio, Ur 9 1 - 29 mg/g ABRAHAN VELA (ERIC) Comment:Testing performed by : [address] [place] [address] Urine 02/05/2024 12:1 7 PM ENVIRONMENTAL DEPARTMENT MANAGER 02/05/2024 6:05 PM ENVIRONMENTAL DEPARTMENT MANAGER us Suresh Child MD LAB URINE ORDERABLE S Final Result ABRAHAN DANE (ERIC) 1 [facility] Department [place] [address] * (ABNORMAL) Lipid panel (09/23/2023 7:26 AM [...] LAB BLOOD ORDERABLES F inal Result AMADOUCALOS MAYO) 1 [facility] Department [place] [address] * DIABETES EYE EXAM (06/14/2023) SCRIBED DIABETIC DILATED EYE EXAM Normal Historical Provider HEALTH MAINTENANCE Final Result * HM PAP SMEAR WITH HPV (05/15/2022) Scribed Pap Smear w/HPV Normal Comment:see care everywhere Historical Provider HEALTH MAINTENANCE Final Result * COLONOSCOPY (04/09/2022 3:50 PM ENVIRONMENTAL DEPARTMENT MANAGER) Historical Provider HEALTH MAINTENANCE Final Result from Last 3 Months or Most Recently Relevant to Health Maintenance Insurance [employer] [employer] Address: [facility] [id number] [place] [address] [employer] Address: [facility] [id number] [place] [address] Care Teams System Administrator Relationship Specialty Start Date End Date Suresh Child MD [address] [facility] [address] [place] [address] PCP - General Family Practice 02/04/24 Ayla Salazar PA [address] [place] [address] Physician Cargo And R[employer] Services Manager 12/23/19 Raji Spears MD [address] [facility] [address] [place] [address] Consulting Physician Rheumatology 04/01/23 Altaf Prasad MD [address] [place] [address] Referring Physician Obstetrics and Gynecology 04/01/23
--- OUTSIDE RECORDS SUMMARY | 2024-10-05 16:45 | XMS_ITS | Clinical Summary ---
Author Organization [facility] [address] [place] [id number] Care Team Providers Care Senior Applications Analyst Name Role Phone Ayla Salazar Unavailable Raji Spears MD Unavailable [phone] Altaf Prsaad MD Unavailable [phone] Suresh Child MD Primary Care Provi jonelle Allergies Active Allergy Reactions Criticality Noted Date Comments Onjwvpq-Wjf-Mnf Reductase Inhibitors Muscle pain Medium 04/01/2023 Intolerance [...] MOUTH DAILY 90 capsule 3 025 Active ferrous sulfate (FeroSuL) 325 mg [...] tablet (2 mg total) by mouth daily Active HYDROcodone-aceta minophen (NORCO) 5-325 mg per tablet Take 1 tablet by mouth every 4 (four) hours as needed for pain Active Mounjaro 15 mg/0.5 mL pen injector injectionIndicati ons:Type 2 diabetes mellitus with hyperlipidemia (HCC),Morbid obesity with BMI of 45.0-49.9, adult ([facility]) ADMINISTER 15 MG UNDER THE SKIN EVERY 7 DAYS 2 mL Active topiramate (TOPAMAX) 25 mg tabletIndications :Chronic migraine with aura without status migrainosus, not intractable TAKE 1 TABLET(25 MG) BY MOUTH EVERY NIGHT FOR 14 DAYS THEN TAKE 2 TABLETS(50 MG) BY MOUTH EVERY NIGHT 74 tablet 1 Active topiramate (TOPAMAX) 25 mg tabletIndications :Chronic [...] [place] Assessment & Plan (04/01/2023 10:47 AM SEWER PIPE CLEANER): Chronic. Very well controlled on current regimen. [...] cholesterol. Assessment & Plan (04/01/2023 10:48 AM SEWER PIPE CLEANER): Patient reports prior intolerance to both atorvastatin [...] Effexor Assessment & Plan (04/01/2023 10:48 AM SEWER PIPE CLEANER): Chronic. Well controlled on current medication. We will continue for now. Brief supportive counseling provided. Monitor Diabetes mellitus, type 2 05/22/2022 Assessment & Plan (09/30/2023 9:20 AM CDT): Chronic. Diabetes is controlled. Obesity needs improvement encouraged healthy diet, exercise, weight loss. Continue current prescription medication Diverticulosis of colon 07/26/2020 Gastroesophageal reflux disease 07/26/2020 Assessment & Plan (04/01/2023 10:42 AM SEWER PIPE CLEANER): Chronic. Relatively controlled with omeprazole. Continue. Liver fibrosis 07/26/2020 Overview (04/01/2023): Liver biopsy done 08/14/20 at [facility] -- Steatohepatitis, NAFLD score 6 -- Steatosis, diffuse -- Mild portal inflammation and rare foci of lobular infiltration -- Prominent balloon degeneration -- Fibrosis stage, mild, stage 1 Assessment & Plan (09/30/2023 9:18 AM CDT): Encouraged healthy diet, exercise, weight loss. Liver enzymes are normal. We will need to monitor with starting Zetia Assessment & Plan (04/01/2023 10:43 AM SEWER PIPE CLEANER): Mild fibrosis on liver biopsy in 2020. [place] likely due to nonalcoholic steatohepatitis. Counseled on healthy diet, exercise, weight loss. We will see if increased dose of Ozempic can provide added weight loss benefits in addition to helping with her diabetes control. Patient needs to transition GI doctors due to change in insurance. She previously saw Dr. Livingston at [facility]. Given Dr. Livingston is now with DELVIN/Michaela at [facility] we will go ahead and refer back to her. Pancreatic insufficiency 07/26/2020 Assessment & Plan (09/30/2023 9:19 AM CDT): Chronic. Symptoms controlled with pancrelipase. Continue Assessment & Plan (04/01/2023 10:46 AM SEWER PIPE CLEANER): Previously diagnose. Symptoms are relatively controlled as long as she takes the pancreatic enzymes prior to meals. 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 Livingston. Last fiber scan was in 2020 that suggested S3 steatosis and F4 scarring. Liver biopsy done 07/2020 consistent with slr-xxwhqfk-wfpwucazmd steatohepatitis with signs of early fibrosis but not cirrhosis. Was recommended diet, exercises, weight loss Assessment & Plan (09/30/2023 9:18 AM CDT): Chronic. Liver enzymes have been normal. Encouraged healthy diet, exercise, weight loss. Monitor liver enzymes. Keep alcohol in moderation Assessment & Plan (04/01/2023 10:43 AM SEWER PIPE CLEANER): Diagnosed previously. Counseled on healthy diet, exercise, [...] loss Assessment & Plan (04/01/2023 10:46 AM SEWER PIPE CLEANER): Chronic. Diagnosed about 2 years ago at [facility]. Patient reports her last PCP was 1 [...] Continue Arava. Keep upcoming appointment with new brick or block maker given her brick or block maker left the system Assessment & Plan (04/01/2023 10:44 AM SEWER PIPE CLEANER): Chronic. Currently supposed to be on sulfasalazine but not taking consistently. Has been following with Rheumatology, Dr. Spears. He has her on p.r.n. and tramadol and Flexeril as well. Patient has an appointment to establish with new brick or block maker next month. We will defer management of autoimmune diseases and tramadol to the brick or block maker Scleroderma 07/26/2020 02/17/2024 Assessment & Plan (09/30/2023 9:18 AM CDT): Chronic. Stable. Continue medication and care per Rheumatology. She will be transitioning to brick or block maker within our system as the [facility] brick or block maker is no longer with the practice Assessment & Plan (04/01/2023 10:45 AM SEWER PIPE CLEANER): Patient reports was a very mild case [...] loss Assessment & Plan (04/01/2023 10:45 AM SEWER PIPE CLEANER): Chronic. Suboptimally controlled. Has been working on diet, exercise and weight loss. Was seen better weight loss benefit with Mounjaro but had to be switch to Ozempic due to insurance change. We will see if she can tolerate a slightly higher dose of Ozempic for added benefit for the obesity as well as the diabetes. We did counseling department chair side effects and use. If develops significant intolerance she will need to let us know we will go back down on the dose Encounters Date Type Department Care Team Description 09/03/2024 2:00 PM CDT Office Visit [facility] Gastroenterology at [address] [place] [phone] Silvia Cannon PA Pancreatic insufficiency (Primary Dx); Abdominal cramping; Abdominal bloating; Constipation, unspecified constipation type; Liver fibrosis; Heartburn; Nausea; Irritable bowel syndrome with constipation; Internal hemorrhoids; Diverticulosis 07/20/2024 Results Follow-Up [facility] Gastroenterology at [address] [place] [phone] Silvia Cannon PA RUQ Ultrasound 07/17/2024 9:21 AM CDT - 07/17/2024 11:59 PM CDT Hospital Encounter [facility] [address] [place] [address] Liver fibrosis Discharge Disposition: Discharge to home [...] ENDOMETRIAL ABLATION OOPHORECTOMY 05/23/2023 - 06/22/2023 Left HYSTERECTOMY Medical History Medical History Date Comments IBS (irritable bowel syndrome) Anemia 05/07/2019 Anxiety 09/10/2016 Arthritis 09/2017 Diverticulitis of colon 12/2019 GERD (gastroesophageal reflux disease) 5 Hyperlipidemia 01/02/2015 Hypertension 03/23/2015 Joint pain Kidney stone 12/2019 Low back pain Morbid obesity (HCC) Sleep apnea 03/23/2015 Vitamin D deficiency Liver fibrosis 07/26/2020 Liver biopsy don e 08/14/20 at [facility] -- Steatohepatitis, NAFLD score 6 -- Steatosis, [...] Mother's Sister 2 Alexandra Arthritis Paternal Grandmother [place] Diabetes Paternal Grandmother [place] Heart disease Paternal Grandmother [place] Stroke Paternal Grandmother [place] Relation Name Status Comments Father Yogesh Father's Brother 1 Joseph Father's Brother 2 Feliz Father's Sister Sujata Maternal Grandfather Hayden Maternal Grandmother Marilyn Mother Rose Mary Mother's Sister 1 Eula Mother's Sister 2 Alexandra Paternal Grandmother [place] Social History Tobacco Use Types Packs/Day Years [...] on file Legal Sex Female 1:00 AM SEWER PIPE CLEANER Gender Identity Female 04/19/2020 10:14 AM SEWER PIPE CLEANER Sexual Orientation Straight 04/19/2020 10 :14 AM SEWER PIPE CLEANER Obstetrics History Para Term AB IAB SAB Ectopic Multiple Livin g Live Births 0 0 0 0 0 0 0 0 0 0 0 Last Filed Vital Signs Vital Sign Reading Time Taken Comments Blood Pressure 107/74 09/03/2024 1:40 PM CDT Pulse 81 09/03/2024 1:40 PM CDT Temperature 36.6 C (97.8 F) 05/13/2024 2:52 PM SEWER PIPE CLEANER Respiratory Rate 18 05/13/2024 7:24 AM SEWER PIPE CLEANER Oxygen Saturation 98% 09/03/2024 1:40 PM CDT Inhaled Oxygen Concentration - - Weight 115.8 kg (255 lb 3.2 oz) 09/03/2024 1:40 PM CDT Height 162.6 cm (5' 4) 09/03/2024 1:40 PM CDT Body Mass Index 43.8 09/03/2024 1:40 PM CDT Plan of Treatment Health Maintenance Due Date Last Done Comments Hepatitis B Screening 1998 Foot Exam 04/01/2024 04/01/2023, 04/01/2023 Dilated Eye Exam 06/13/2024 06/14/2023 Lipid Panel 09/22/2024 09/23/2023 Regular Well Visit/Exam 18-64 09/29/2024 09/30/2023 Hemoglobin A1C 11/07/2024 05/10/2024, 01/22, 09/23/2023, Additional history exists Influenza Vaccine (#1) 2024 , 01/17/2024, 12/23/2022, Additional history exists Depression Screening 02/03/2025 02/04/2024, 09/30/2023, 04/01/2023 Albumin Creatinine Ratio, Urine 02/04/2025 02/05/2024, 06/07/2022 Breast Cancer Screening-Mammogram 05/22/2025 05/22/2024, 04/26/2023 eGFR 06/03/2025 06/03/2024, 04/24, 04/15/2024, Additional history exists DTaP/Tdap/Td Vaccine (2 - Td or Tdap) 03/24/2027 03/24/2017 Colon Cancer Screening-Colonoscopy 04/09/2027 04/09/2022, 10/09/2012 Cervical Cancer Screening Discontinued 05/15/2022 Pneumococcal vaccine <65 Completed 09/30/2023, 10/24 Covid-19 Vaccine Completed 11/27/2023, 07/2023, 05/08/2022, Additional history exists Hepatitis C Screening Completed [...] Read Routine (OP Routine) 05/22/2024 1:55 PM SEWER PIPE CLEANER Screening mammogram, encounter for HEMOGLOBIN A1C Routine 05/10/2024 7:21 AM SEWER PIPE CLEANER Type 2 diabetes mellitus with hyperlipidemia (HCC) HEPATITIS C ANTIBODY Routine 02/17/2024 2:19 PM SEWER PIPE CLEANER Pain in other joint Positive NOLA (antinuclear antibody) Elevated rheumatoid factor Chronic pain of both knees ALBUMIN CREATININE RATIO, URINE Routine 02/05/2024 12:17 PM SEWER PIPE CLEANER Type 2 diabetes mellitus with hyperglycemia, without [...] Routine 05/15/2022 COLONOSCOPY Routine 04/09/2022 3:50 PM SEWER PIPE CLEANER from Last 3 Months or Most Recently [...] stone is noted as per the performing utility systems repairer operator. No pericholecystic fluid. Negative sonographic Sidhu sign as per performing utility systems repairer operator. BILIARY: Normal common bile duct measures 3 mm in diameter. RIGHT KIDNEY: Normal in size. Measures 10.3 cm. No hydronephrosis IMPRESSION: 1. Borderline hepatic steatosis. 2. Cholelithiasis without sonographic evidence of acute cholecystitis. THIS IS AN ELECTRONICALLY VERIFIED FINAL REPORT 07/19/2024 7:30 AM - Electronically signed by Chito Washburn M.D. AG: DO Report ID: [id number] Reading Location: [id number] Procedure Note Chito Washburn MD - 07/19/2024 [...] mobile stone isnoted as per the performing utility systems repairer operator. No pericholecystic fluid. Negative sonographic Sidhu sign as per performing utility systems repairer operator. BILIARY: Normal common bile duct measures 3 mm in diameter. RIGHT KIDNEY: Normal in size. Measures 10.3 cm. No hydronephrosis IMPRESSION: 1. Borderline hepatic steatosis. 2. Cholelithiasis without sonographic evidence of acute cholecystitis. THIS IS AN ELECTRONICALLY VERIFIED FINAL REPORT 07/19/2024 7:30 AM - Electronically signed by Chito Washburn M.D. AG: DO Report ID: [id number] Reading Location: [id number] Silvia THOMAS IMG US PROCEDURES Final Result [...] THOMAS LAB BLOOD ORDERABLES Fin al Result [facility]) [address] [facility] Department [place] [address] * Screening Mammogram Bilateral W Scooter (05/22/2024 1:55 PM SEWER PIPE CLEANER) Anatomical Region Laterality Modality Breast Bilateral Mammography 05/23/2024 9:37 PM SEWER PIPE CLEANER Impressions 05/23/2024 9:37 PM SEWER PIPE CLEANER There is no mammographic evidence to suggest malignancy. The patient may continue screening mammography as per ACR guidelines. FINAL ASSESSMENT: BI-RADS Category 1: Negative. Electronically signed by: Kathia Duncan M.D. Narrative 05/23/2024 9:37 PM SEWER PIPE CLEANER EXAMINATION: BILATERAL SCREENING MAMMOGRAM WITH TOMOGRAPHY HISTORY: [...] Result * Hemoglobin A1c (05/10/2024 7:21 AM SEWER PIPE CLEANER) Hgb A1C 5.3 4.0 - 5.6 % Estimated Average Glucose 105 mg/dL [facility] ([facility]) Comment: The ADA recommends reporting an estimated Average Glucose (eAG) with all Hemoglobin A1c results using the equation derived from a study of 507 normal and diabetic adults. Minority populations were underrepresented and children were not included. (Diabetes Care 31:3458-5639, 2008). The eAG is not equivalent to a fasting glucose. Blood 05/10/2024 7:21 AM SEWER PIPE CLEANER 05/10/2024 10:40 AM SEWER PIPE CLEANER Suresh Child MD LAB BLOOD ORDERABLE S Final Result [facility] ([facility]) [facility] Department [place] [address] * Hepatitis C antibody Blood (02/17/2024 2:19 PM SEWER PIPE CLEANER) Pathologist [facility] Hep C Ab Nonreactive Nonreactive Comment: Interpretive [...] revised on 2019. Blood 02/17/2024 2:19 PM SEWER PIPE CLEANER 02/17/2024 7:28 PM SEWER PIPE CLEANER us Analia Ambriz MD LAB MICROBIOLOGY - GENERAL ORDERABLES Final Result [facility] [address] Department [place] [address] * Albumin Creatinine Ratio, Urine (02/05/2024 12:17 PM SEWER PIPE CLEANER) Albumin Ur 22.1 mg/L Comment: Interpretive Data No reference range established. Current interpretive data was last revised 2018. Testing performed by: [facility], [address] [place] [address]., [id number] Creatinine Ur 254.3 mg/dL [facility] (ERIC) Comment: Interpretive Data No reference range established. Current interpretive data was last revised 2018. Testing performed by: [facility], [address] [place] [address]., [id number] Albumin Creatinine Ratio, Ur 9 1 - 29 mg/g [facility] (ERIC) Comment:Testing performed by : [facility], [address] [place] [address]., [id number] Urine 02/05/2024 12:1 7 PM SEWER PIPE CLEANER 02/05/2024 6:05 PM SEWER PIPE CLEANER us Suresh Child MD LAB URINE ORDERABLE S Final Result Performing Organization Address City/[facility]/ZIP Co de Phone Number [facility] ([facility]) [facility] Department [place] [address] * (ABNORMAL) Lipid panel (09/23/2023 7:26 AM [...] F inal Result [facility] ([facility]) [facility] Department [place] [address] * DIABETES EYE EXAM (06/14/2023) SCRIBED DIABETIC DILATED EYE EXAM Normal Result [facility] Historical [facility] [employer] Final Result * PAP SMEAR WITH HPV (05/15/2022) Scribed Pap Smear w/HPV Normal Comment:see care everywhere Historical [facility] [employer] Final Result * COLONOSCOPY (04/09/2022 3:50 PM SEWER PIPE CLEANER) Historical [facility] [employer] Final Result from Last 3 Months or Most Recently Relevant to Health Maintenance Insurance [facility] [employer] Address: [facility] [id number] [place] [phone] [facility] [employer] Address: [address] [place] [address] Care Teams Senior Applications Analyst Relationship Specialty Start Date End Date Suresh Child MD [address] [facility] [address] [place] [address] PCP - General Family Practice 02/04/24 Ayla Salazar PA [address] [place] [id number] Physician Teaching Aide 12/23/19 Raji Spears MD [address] [address] Consulting Physician Rheumatology 04/01/23 Altaf Prasad MD [address] [place] [address] Referring Physician Obstetrics and Gynecology 04/01/23
--- OUTSIDE RECORDS SUMMARY | 2024-10-05 16:45 | XMS_ITS | Clinical Summary ---
Author Organization [facility] Address [address] [place] [address] Care Team Providers Care Lathe Spotter Name Role Phone Ayla Salazar PA-C Primary Care Provider + Source Comments [facility],non-owned Affiliates and Associated Physician Practices is amultiple site organization consisting of ambulatory clinics and hospital sitesin [place], [place], [place] and [place]. This disclosure is being madepursuant to the Care Everywhere program and may not contain all information available regarding this patient. Last updated 17.[facility] Allergies No known active allergies Medications * [...] before meals for 30 days. Active Pancrelipase, Fbk-Xujq-Oorg, (CREON PO) Active Multiple Vitamins-Minera ls (MULTIVITAMIN [...] SCREENING 1978 LIPID TESTING 1978 MAMMOGRAM 1978 HIV SCREENING 1993 HEPATITIS C SCREENING 03/08/1996 DTAP/TDAP/TD VACCINES (1 - Tdap) 1997 HEPATITIS B VACCINE (1 of 3 - 19+ 3-dose series) 1997 PNEUMOCOCCAL VACCINE (1 of 2 - PCV) 1997 PAP SMEAR 1999 COVID-19 VACCINE (2023-2 5 season) 2023 SCREENING FOR DIABETES 02/23/2024 , 02/22/2021, 08/15/2020 DEPRESSION SCREENING 03/24/2024 INFLUENZA VACCINE (#1) 2024 11/29/2016 ZOSTER VACCINE (1 of 2) 2028 HIB VACCINE Aged Out No longer eligi ble based on patient's age to complete this topic HPV VACCINE Aged Out No longer eligi ble based on patient's age to complete this topic MENINGOCOCCAL (Group B) VACCINE SHARED DECISION-MAKING Aged Out No longer eligible based on patient's age to complete [...] LAB - CHEMISTRY OR DERABLES Final Result [facility] [address] [place] [address] from Last 3 Months or Most Recently Relevant to Health Maintenance Insurance [facility] Care Teams Lathe Spotter Relationship Specialty Start Date End Date Ayla Salazar PA-C [address] [place] [phone] PCP - General 07/12/20
[2024-10-05 16:53] VITALS: BP 139/83; PULSE 75; RESP 18; TEMP 36.2; O2SAT 100
--- NOTE | 2024-10-05 17:11 | ED_ITS ---
HPI - Extremity Injury (Lower) General Chief Complaint: Extremity Injury, Lower Stated Complaint: Fall Injury/Left Leg Injury Time Seen by Provider: 10/05/24 16:50 Source: patient and RN notes reviewed Mode of arrival: ambulatory Limitations: no limitations History of Present Illness HPI Narrative: 44-year-old female Presents [facility] complaining of injury to left lower leg approximately 2 weeks ago. Patient reports she tripped over the entrance of a shed striking her left castilol on a metal door falling to the ground. Patient denies hitting her head, loss of consciousness, neck pain, back pain, headaches, blurry vision, vision changes, dizziness lightheadedness, or any other symptoms. Patient reports having bruising and pain to her left knee is worse with movement of her knee, left lower castillo and bruising and lateral left foot pain that is worse with bearing weight. Patient says the bruising pain is not getting better. Patient has tried Tylenol and ibuprofen with some relief. Related Data Home Medications ?Medication ?Instructions ?Recorded ?Confirmed ?Last Taken ?Type metoprolol succinate 50 mg 50 mg PO DAILY 04/25/23 08/19/24 Unknown History tablet,extended release 24 hr omeprazole 40 mg capsule,delayed 40 mg PO DAILY 04/25/23 08/19/24 Unknown History release venlafaxine 150 mg 150 mg PO DAILY 05/19/23 08/19/24 Unknown History capsule,extended release 24 hr estradiol 2 mg tablet 2 mg PO DAILY 08/19/24 08/19/24 Unknown History ferrous sulfate 325 mg (65 mg 325 mg PO DAILY 08/19/24 08/19/24 Unknown History iron) tablet (FeroSul) [id number] 1 cap PO QID 08/19/24 08/19/24 Unknown History 40,000-126,000-168,000 unit capsule, delay rel (Zenpep) tirzepatide 12.5 mg/0.5 mL 12.5 mg subcut WEEKLY 08/19/24 08/19/24 08/14/24 History subcutaneous pen injector (Mounjaro) topiramate 25 mg tablet 25 mg PO DAILY 08/19/24 08/19/24 Unknown History Allergies Allergy/AdvReac Type Severity Reaction Status Date / Time No Known Allergies Allergy Verified 08/25/24 08:05 Review of Systems Review of Systems: CONSTITUTIONAL: Denies fever, chills, or sweats. EYES: Denies visual changes, redness, or discharge. ENT: Denies rhinorrhea, congestion, sore throat, or otalgia. CARDIOVASCULAR: Denies chest pain, dizziness, lightheadedness, palpitations, or edema. RESPIRATORY: Denies cough or dyspnea. GASTROINTESTINAL: Denies abdominal pain, nausea, vomiting, or diarrhea. GENITOURINARY: Denies dysuria or hematuria. SKIN: Denies rash, wound, or itching. MUSCULOSKELETAL: Denies back pain, neck pain, joint pain, or myalgia. Positive for left lower leg/foot injury and swelling NEUROLOGIC: Denies headache, loss of consciousness, seizures, numbness, or weakness. PSYCHIATRIC: Denies anxiety or depression. All other systems reviewed are negative, except as documented in HPI. PMFSH Past Medical History Medical History Acute arthritis Anxiety Bilateral hand pain Counseling on health promotion and disease prevention Diabetes Generalized osteoarthritis of multiple sites GERD (gastroesophageal reflux disease) Headache Hyperlipidemia IBS (irritable bowel syndrome) Seronegative rheumatoid arthritis of both hands Surgical History Surgical History H/O breast surgery Family History Family History Other Cerebrovascular accident Depression Diabetes mellitus Heart disease Hypertension Social History Social History Smoking status: Never smoker Second hand tobacco smoke exposure: Yes Alcohol intake: never Substance use: never Substance use type: does not use Do You Feel Safe in your Home?: Yes Lack of Transportation: No Lack of Food: Never True Current Housing: I Have Housing Concerned About Future Housing: No Difficulty Paying Gas/Electric Bills: No Difficulty Paying for Meds: No Currently Unemployed: No Education: Decline to Answer Difficulty w/ Childcare or Family Care: No Living arrangements: alone Spiritual care concerns: No Comments At the time of my signature, I reviewed and agree with the nursing past medical, surgical, social, and family history. There is no relevant family history pertinent to the patient complaint. Exam Narrative: GENERAL: This is a well-nourished, well-developed adult, in no apparent distress. They are non ill-appearing, nontoxic appearing. HEAD: normocephalic, atraumatic. EYES: Sclera clear/white. Vision is grossly intact. Conjunctiva normal. Extraocular movement intact. EARS: External ears normal Hearing grossly intact. NOSE: External nose normal THROAT: Mucous membranes moist NECK: Neck supple CARDIOVASCULAR: Regular rate and rhythm RESPIRATORY: Respiratory rate normal, respiratory effort nonlabored, no respiratory distress NEURO: awake, alert, and oriented to person, place and time. There were no obvious focal neurologic abnormalities. EXTREMITIES: Left knee: No obvious deformity or swelling. There is bruising to the anterior surface of the knee and below the kneecap. Tenderness through full range of motion. No valgus or varus laxity. Mild tenderness to palpation to the anterior surface of the knee. No palpable cord. Capillary refill less than 3 seconds. Normal sensation. Neurovascular status intact distal injury. Left tibia/fibula: There is a mild swelling and ecchymosis to the lower tibia says fibula extending mid lower leg to her ankle. No bony tenderness to the ankle. Tenderness to palpation throughout the bruising. Normal sensation, neurovascular status intact distal injury. Capillary refill less than 3 seconds. Left foot: Slight bruising to the lateral dorsal surface foot. Tenderness to palpation to the lateral dorsal surface of foot. Ankle nontender through full range of motion. Patient able to wiggle her toes. Capillary refill less than 3 seconds. Left pedal pulse 2 +and palpable. Neurovascular status intact distal injury. Negative tonsils status. BACK: Nontender without deformity. Course Course Emergency Course: Portions of this record may have been created with voice recognition software Level of Care: Express Care Visit Vital Signs Vital signs: Vital Signs Temperature 97.1 F L 10/05/24 16:53 Pulse Rate 75 10/05/24 16:53 Respiratory Rate 18 10/05/24 16:53 Blood Pressure 139/83 10/05/24 16:53 Pulse Oximetry 100 10/05/24 16:53 Oxygen Delivery Room Air 10/05/24 16:53 Temperature 97.1 F L 10/05/24 16:53 Pulse Rate 75 10/05/24 16:53 Respiratory Rate 18 10/05/24 16:53 Blood Pressure 139/83 10/05/24 16:53 Pulse Oximetry 100 10/05/24 16:53 Oxygen Delivery Room Air 10/05/24 16:53 Reviewed MDM - Extremity Injury (Lower) MDM Narrative Medical decision making narrative: X-ray of left knee, left tibia/fibula, and left foot reveals no evidence of fractures or acute findings. Incidental finding of arthritis the patient's left knee, left ankle, and left foot. Achilles and Calcaneal spur also noted to left foot. Offered patient Carlos wrap and she declined. Discussed physical exam findings. Advised supportive measures and signs/symptoms to go to the ER. Pt is appropriate for outpt treatment and f/u. Differential Diagnosis Differential diagnosis: Likely other (Foot fracture, foot sprain, foot contusion, tibia/fibula contusion, tibia fracture, fibula fracture, knee fracture, knee contusion, patella fracture, toe fracture, knee sprain, ankle sprain, ankle fracture) Imaging Data Radiologist's impression: ITS Impressions Foot X-Ray 10/05/24 17:57 IMPRESSION: 1. Mild polyarticular osteoarthritis at the left knee, foot and ankle. No acute osseous abnormality. Knee X-Ray 10/05/24 17:57 IMPRESSION: 1. Mild polyarticular osteoarthritis at the left knee, foot and ankle. No acute osseous abnormality. Tibia/Fibula X-Ray 10/05/24 17:57 IMPRESSION: 1. Mild polyarticular osteoarthritis at the left knee, foot and ankle. No acute osseous abnormality. Critical Care Time Critical Care Time Critical Care Time: No Discharge Plan Discharge Clinical Impression: Fall, Contusion of knee, Contusion of left lower leg, Injury of foot, left Patient Disposition: Home Condition: Stable Instructions: Contusion in Adults (ED), Foot Sprain (ED) Additional Instructions: The x-ray of your left knee, left tibia/fibula, left foot are all negative for any fractures or acute findings. Rest and elevate the leg; bear weight as tolerated Apply ice 15-20 minute intervals several times a day Keep it wrapped with CARLOS Motrin 600mg -800mg every 8 hours, alternate with Tylenol 1000mg every 8 hours as needed Follow up with your primary care provider or an orthopedist in 1-2 weeks if pain is persisting. Patient Language: Upper Sorbian Prescriptions: No Action omeprazole 40 mg capsule,delayed release(DR/EC) 40 mg PO DAILY metoprolol succinate 50 mg tablet extended release 24 hr 50 mg PO DAILY Mounjaro 12.5 mg/0.5 mL pen injector 12.5 mg SUBCUT WEEKLY estradiol 2 mg tablet 2 mg PO DAILY topiramate 25 mg tablet 25 mg PO DAILY ferrous sulfate [FeroSul] 325 mg (65 mg iron) tablet 325 mg PO DAILY Zenpep 40,000-126,000- 168,000 unit capsule,delayed release(DR/EC) 1 cap PO QID Patient Comments: TAKES BEFORE MEALS hydrocodone-acetaminophen 5-325 mg tablet 1 tablet PO Q4H PRN (Reason: pain) Qty: 25 0RF venlafaxine 150 mg capsule,extended release 24hr 150 mg PO DAILY Follow-up/Referrals: PHYSICIAN NOT ON STAFF,NONSTAFF [Primary Care Provider] - Efraín Perez MD [Physician] - Time of Disposition: 18:15
== END 2024-10-05 18:19 | disposition home or self-care (01) ==
DX: S80.02XA Contusion of left knee, initial encounter (principal); S80.12XA Contusion of left lower leg, initial encounter; S99.922A Unspecified injury of left foot, initial encounter; W18.09XA Striking against other object with subsequent fall, initial encounter; E11.9 Type 2 diabetes mellitus without complications; Z79.85 Long-term (current) use of injectable non-insulin antidiabetic drugs; K21.9 Gastro-esophageal reflux disease without esophagitis; E78.5 Hyperlipidemia, unspecified; M06.042 Rheumatoid arthritis without rheumatoid factor, left hand; M06.041 Rheumatoid arthritis without rheumatoid factor, right hand; M15.9 Polyosteoarthritis, unspecified; F41.9 Anxiety disorder, unspecified
CPT/HCPCS: 73562; 73590; 73630; 99214; G0463